=== PATIENT | female | born 1985 | race Caucasian/White ===

== ENCOUNTER 2021-05-17 08:19 | Outpatient (REF) | payer OTHER, MEDICAID, SELFPAY ==
--- NOTE | 2021-05-17 11:39 | MHC.AU.ANO ---
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 She does not know the type of tumor which was removed. When in [place], Nate saw an footwear machinery instructor on a regular basis for ear cleaning due to constant drainage/moisture in the right ear. She has been in the [place] for approximately 4 years now and usually has gone to a walk in clinic for ear cleaning. Nate notes she saw an [employer] Hand and Mediation Commissioner 6 months ago at [facility]. A report is not available for review. Nate reports ear cleaning was performed, but no medical treatment was provided. A hearing aid for the right ear was recommended. Nate did not want to travel to [place] and would like to keep her care more local. Hearing Handicap Inventory: HHIE SCORE: 24 Based on HHIE score, patient has: Mild to moderate perceived hearing handicap Ear History: Recent Ear Drainage: Right Ear Recent Ear Pain: Right Ear Recent Ear Infections: Right Ear Ear Infections in Childhood: Right Ear Previous Ear Surgery: Right Ear Bothersome Tinnitus/Ringing/Noises in Ears: Right Ear Ear used on the phone: Left Ear Blocked/Full Sensation in Ear(s): Right Ear History of occupational noise exposure?: No History: History: No Medical History: Medical History: Migraines Medical History: EXPERIENCES DIZZINESS AND HEADACHES WITH LOUD SOUNDS Medication List: vitamin and Ibuprofen (as needed) Otoscopy: Right Ear: Significant moisture in canal with scarring noted on TM and canal Left Ear: Unremarkable Tympanometry: Tympanometry performed due to: History of ear surgery Right Ear: Normal Middle Ear System (Type A) with large ear canal volume reading Left Ear: Normal Middle Ear System (Type A) Otoacoustic EmissionsNot performed at today's visit. Hearing Evaluation: Transducer(s) Used: Insert Earphones Bone Conduction Method: Conventional Audiometry Stimuli Used: Pure Tones Right Ear: Description of Hearing: Moderate dropping to profound mixed hearing loss Left Ear: Description of Hearing: Normal hearing thresholds 250-4000 Hz, dropping to a moderate high frequency hearing loss Speech Recognition Threshold (SRT): Method Used: Monitored Live Voice Stimuli Used: Spondee Words Right Ear: 55 dB HL Left Ear: 15 dB HL Word Discrimination: Method: Monitored Live Voice Word Lists Used: NU-6 Right Ear: 96% at 85 dB HL Left Ear: 100% at 55 dB HL Comparison: Compared to most recent evaluation: Previous test results not available for review Recommendations: - Referral to Ear, Nose, and Throat is recommended to determine treatment for the constant ear moisture/drainage and if further medical treatment may improve the conductive part of the right ear hearing loss. - Use of a hearing aid for the right ear was discussed. However, Edeusa reports significant ear discomfort related to the discharge, ear pain, and tinnitus. There is concern about use of a hearing aid causing more problems with discomfort and/or infection. - Amplification for the right ear is recommended if the loss cannot be medically treated and above noted ear symptoms resolve. - Audiological re-evaluation in 6 months to monitor. Will send a reminder card. Diagnosis: Primary Diagnosis: H90.8 Mixed Hearing Loss, Unspecified Services Performed: Comprehensive Audiological Evaluation (CPT 24643) Tympanometry (CPT 67754) Signature: Provider: Aide Kurtz, CCC-A
== END 2021-05-17 08:20 | disposition home or self-care (01) ==
LOC: HO.SH 08:19
PROVIDERS: PCP Nurse Practitioner; Visit Provider Nurse Practitioner
DX: H90.8 Mixed conductive and sensorineural hearing loss, unspecified (principal)
CPT/HCPCS: 92557; 92567

== ENCOUNTER 2022-12-25 11:33 | Outpatient (REF) | payer OTHER, SELFPAY ==
[2022-12-26 13:27] LABS: BV Int Neg Control Negative (Negative); BV Int Pos Control Positive (Positive)
== END 2022-12-25 11:34 | disposition home or self-care (01) ==
LOC: HO.HHCLNP 11:33
PROVIDERS: Visit Provider Family Medicine
DX: N89.8 Other specified noninflammatory disorders of vagina (principal)
CPT/HCPCS: 87480; 87510; 87660

== ENCOUNTER 2023-01-14 11:45 | Outpatient (REF) | payer OTHER, SELFPAY ==
[2023-01-14 13:26] LABS: CT PCR NOT DETECTED (Not Detect.); NG PCR NOT DETECTED (Not Detect.)
[2023-01-15 15:17] LABS: BV Int Neg Control Negative (Negative); BV Int Pos Control Positive (Positive)
== END 2023-01-14 11:46 | disposition home or self-care (01) ==
LOC: HO.HHCLNP 11:45
PROVIDERS: Visit Provider Internal Medicine
DX: N89.8 Other specified noninflammatory disorders of vagina (principal)
CPT/HCPCS: 0353U; 87480; 87510; 87660

== ENCOUNTER 2023-04-16 14:08 | Outpatient (REF) | payer OTHER, SELFPAY ==
[2023-04-17 15:33] LABS: RPR Rapid Plasma Reagin REACTIVE (NON-REACTIVE)
== END 2023-04-16 14:09 | disposition home or self-care (01) ==
LOC: HO.HHCL 14:08
PROVIDERS: Visit Provider Nurse Practitioner Primary Care
DX: Z11.3 Encounter for screening for infections with a predominantly sexual mode of transmission (principal)
CPT/HCPCS: 36415; 86592; 86593

== ENCOUNTER 2024-05-11 11:03 | Outpatient (REF) | payer OTHER, SELFPAY ==
[2024-05-11 13:20] LABS: Hematocrit 35.5 % (37.0-47.0); Hemoglobin 11.4 g/dl (12.0-16.0); Mean Corpuscular HGB Conc 32.1 g/dl (31.0-35.0); Mean Corpuscular Hemoglobin 25.7 pg (27.0-33.0); Mean Platelet Volume 10.6 fL (9.4-12.3); Platelet Count 266 X10*3/uL (160-400); Red Blood Count 4.44 X10*6/uL (4.20-5.50); Red Cell Distribution Width 14.9 % (11.0-16.0); White Blood Count 4.5 X10*3/uL (4.8-10.8)
[2024-05-11 13:37] LABS: Estimated Average Glucose 100 mg/dL; Hemoglobin A1C 94.5923 umol/L; Hemoglobin A1c % 5.1 % (<6.0); Total Hemoglobin (HGBA1C) 2906.9788 umol/L
[2024-05-11 13:39] LABS: Alanine Aminotransferase 23 U/L (0-31); Albumin Level 3.9 g/dL (3.5-5.0); Alkaline Phosphatase 25 U/L (39-117); Anion Gap 9 (12-20); Aspartate Amino Transferase 25 U/L (5-31); Bilirubin Total 0.6 mg/dL (0.0-1.0); Blood Urea Nitrogen 12 mg/dL (9-16); Calcium 8.5 mg/dL (8.4-10.2); Carbon Dioxide 25 mmol/L (22-29); Chloride 110 mmol/L (96-108); Cholesterol 148 mg/dL (<200); Estimated Glomerular Filt Rate > 60; Glucose Random 91 mg/dL (60-115); HDL Cholesterol 49 mg/dL (>40); LDL Cholesterol Calculated 89 mg/dL (<100); Potassium 4.1 mmol/L (3.3-5.1); Sodium 140 mmol/L (135-145); Total Protein 6.7 g/dL (6.5-8.0); Triglycerides 53 mg/dL (<150)
[2024-05-11 13:58] LABS: Free T4 (Free Thyroxine) 0.98 ng/dL (0.71-1.85); Thyroid Stimulating Hormone 1.38 uIU/mL (0.32-4.0); Vitamin D 25-OH Total 36.4 ng/mL (>30)
[2024-05-11 14:59] LABS: CT PCR NOT DETECTED (Not Detect.); NG PCR NOT DETECTED (Not Detect.)
[2024-05-11 15:09] LABS: Iron 85 mcg/dL (30-160); Percent Iron Saturation 28 % (15-50); Total Iron Binding Capacity 307 mcg/dL (228-428); Unsaturated Iron Binding 222 ug/dL
[2024-05-11 15:23] LABS: Ferritin 20 ng/mL (10-250)
[2024-05-12 04:43] LABS: HBS Num1 111.38 mIU/mL (0-7.99); HBc Num1 0.27 S/CO (0.00-0.79); HBsAGNum1 0.32 S/CO (0.00-0.99); HIV AB/AG Nonreactive (Nonreactive); HIV Num 1 0.04 S/CO (0.00-0.99); Hepatitis B Core Antibody Nonreactive (Nonreactive); Hepatitis B Surface Antigen Negative (Negative); ~HepC Num1 0.22 S/CO (0.00-0.79); ~Hepatitis B Surface Antibody REACTIVE (Nonreactive); ~Hepatitis C Antibody Nonreactive (Nonreactive)
[2024-05-12 05:07] LABS: Syphilis Screen Reactive (Nonreactive)
--- OUTSIDE RECORDS SUMMARY | 2024-05-17 17:59 | XMS_ITS | Continuity of Care Document ---
Author Organization [place] [facility], Allergy Address [address] [place] [phone] Care Team Providers Care Director Of Physical Education Name Role Phone ADILENE ACHARYA Primary Care Provider Assessment Encounter Date Assessment Date Assessment LastModified by Organization Details LastModified Time 04/22/2024 04/22/2024 Administered By: Marga Harrison RN Use of Antihistamines: No If yes: Vial Test Change in medications: No If yes ?? Increase in asthma symptoms No Asthma Hx If yes, inhaler use: Reaction to last injections: No If yes: ?? Allergy Symptoms: Other: ?? Missed 1 week Dose Decreased Notes:??missed 2 weeks hlorinser Not available 04/22/2024 15:06:09 Plan of Treatment Reminders Order Date Submit Date Provider Last Modified By Organization Details Last Modified Time Details Appointments [facility]- Allergy f-up 6mon 2023 01:50P M SARIAH NATION MD Not available Not available Not available Lab None recorded . Referral None recorded . Procedures None recorded . Surgeries None recorded . Imaging None recorded . Medication Orders None recorded . Patient TargetsNo targets recorded. Patient InstructionsNo instructions recorded. Reason for Referral None Reported. 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 Other disorder s followin g mastoide ctomy, right ear; Note: Date Diagnose d: 2 4:39 PM (H95.191 ) Not Available [facility] 4 03:07:21 Tinnitus of right ear [id number] 08 Active 2022 Tinnitus , right ear; Note: Date Diagnose d: 11/13/2022 3:13 PM (H93.11) Not Available [facility] 4 03:07:22 Sensorin eural hearing loss in left ear 18174643900 109 Active 2021 Sensorin eural hearing loss, unilater al, left ear, with restrict ed hearing on the contrala teral side; Note: Date Diagnose d: 2 4:39 PM (H90.A22 ) Not Available [facility] 4 03:07:20 Otorrhea of right ear [id number] 29904 Completed 202101/08/2024 Otorrhea , right ear; Note: Date Diagnose d: 9:57 AM (H92.11) Otorrh ea, right ear; Note: Date Diagnose d: 06/10/2019 2:45 PM (H92.11) ; Start Date : 06/10/19 Not Available [facility] 4 03:07:20 Allergic rhinitis caused by pollen 71580912 Active 2022 Allergic rhinitis due to pollen; Note: Date Diagnose d: 11/13/2022 3:13 PM (J30.1) Not Available [facility] 4 03:07:22 Partial loss of ear ossicles 36196207 Active 2021 Partial loss of ear ossicles , right ear; Note: Date Diagnose d: 2 9:54 AM (H74.321 ) Not Available [facility] 4 03:07:21 Follow-u p visit Active 2021 Medical surveill ance followin g complete d treatmen t; Note: Date Diagnose d: 04/25/20 22 3:46 PM (Z09) Not Available [facility] 4 03:07:22 Acute pharyngi tis 693240194 Completed 202201/04/2024 Acute pharyngi tis, unspecif ied; Note: Date Diagnose d: 03/19/20 23 9:39 AM (J02.9) Note: Date Diagnose d: 03/19/20 9:39 AM (J02.9) SARIAH NATION MD [address] [facility],[place] [address], [place], [phone] , [place] [facility] 4 16:30:12 Chronic inflamma tion of mastoid cavity 362457424 Completed 201901/08/2024 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, right ear; Note: Date Diagnose d: 06/10/2019 2:45 PM (H95.111 ) Not Available [facility] 4 03:07:21 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; Note: Date Diagnose d: 06/10/2019 2:42 PM (383.33) Not Available [facility] 4 03:07:22 Perennia l allergic rhinitis 523627022 Active 2023 MARGA HARRISON RN [address] [facility],[place] [address], [place], [phone] , [place] [facility] 4 15:03:21 Mixed conducti ve and sensorin eural hearing loss of right ear 41969571039 105 Active 2023 SARIAH NATION MD [address] [place] [address], [place], [address] , [place] [facility] 4 16:31:16 Otorrhea of right ear 12430428130 05777 Active 2023 Otorrhea , right ear; Note: Date Diagnose d: 2 9:57 AM (H92.11) Note: Date Diagnose d: 2 9:57 AM (H92.11) Otorrh ea, right ear; Note: Date Diagnose d: 06/10/2019 2:45 PM (H92.11) Note: Date Diagnose d: 06/10/2019 2:45 PM (H92.11) ; Start Date : 06/10/19 SARIAH NATION MD [address] [facility],[place] [address], [place], [address] , [place] [facility] 4 11:27:08 Mixed conducti ve and sensorin eural hearing loss of left ear 95028493406 107 Active 2021 Mixed conducti ve and sensorin eural hearing loss, unilater al, left ear with restrict ed hearing on the contrala teral side; Note: Date Diagnose d: 2 4:39 PM (H90.A32 ) Not Available [facility] 4 03:07:21 Problem Notes None recorded. Procedures Surgical History Date Name Laterality Status Provider Name and Address Organization Details Recorded Time 05/13/20 24 Allergy Immunotherapy Injections completed ADRIEL SHEPARD, RMA [address] [facility] [address],[place] [address] [place] [address], [phone], [place] [facility] 05/13/2024 15:19:24 04/22/20 24 Allergy Immunotherapy Injections completed MARGA HARRISON RN [address] [facility],[place] [address] [place] [address], [phone], [place] [facility] 04/22/2024 15:06:00 03/31/20 24 Allergy Immunotherapy Injections completed QUINN MAE [facility] [address] [facility] [address],[place] [address] [place] [address], [phone], [place] [facility] 03/31/2024 15:25:04 03/10/20 24 Allergy Immunotherapy Injections completed ADRIEL SHEPARD, RMA [address],[place] [address] [place] [address], [phone], [place] [facility] 03/10/2024 14:25:36 03/03/20 24 Allergy Immunotherapy Injections completed ADRIEL SHEPARD A [address] [facility] [address],[place] [address] [place] [address], [phone], [place] [facility] 03/03/2024 14:21:21 02/26/20 24 Allergy Immunotherapy Injections completed MARGA HARRISON RN [address] [facility] [address] [place] [address] [place] [address], [phone], [place] [facility] 02/26/2024 10:12:39 02/18/20 24 Allergy Immunotherapy Injections completed MARGA HARRISON RN [address] [facility] [place] [address] [place] [address], [phone], [place] [facility] 02/18/2024 16:04:15 02/11/20 24 Allergy Immunotherapy Injections completed QUINN MAE [facility] [address] [facility] [place] [address] [place] [address], [phone], [place] [facility] 02/11/2024 13:55:12 02/04/20 24 Allergy Immunotherapy Injections completed QUINN MAE [facility] [address] [facility] [address],[place] [address] [place] [address], [phone], [place] [facility] 02/04/2024 13:18:37 01/21/20 24 Allergy Immunotherapy Injections completed QUINN MAE [facility] [address] [facility] [address],[place] [address] [place] [address], [phone], [place] [facility] 01/21/2024 13:29:56 01/05/20 24 Debridement of Mastoid Cavity right completed SARIAH NATION MD [address] [facility] [place],[address], [phone], [place] [facility] 01/05/2024 11:26:57 01/05/20 24 Allergy Immunotherapy Injections completed MARGA HARRISON RN [address] [facility] [place],[address], [phone], [place] [facility] 01/05/2024 12:01:09 12/17/19 24 Allergy Immunotherapy Injections completed ADRIEL SHEPARD [facility] [address] [facility] [address],[place] [address] [place] [address], [phone], [place] [facility] 12/17/2023 11:19:30 11/30/19 24 Allergy Immunotherapy Injections completed MARGA HARRISON RN [address] [facility],[place] [address] [place] [address], [phone], [place] [facility] 11/30/2023 15:43:46 Appendectomy completed Mony Dailey [facility] 01/05/2024 10:43:00 Breast reduction completed Mony Dailey [place] [facility] 01/05/2024 10:43:07 Imaging Results None recorded. Procedure Notes None recorded. Medical Equipment None Reported. Allergies No known drug allergies Medications Name Sig Start Date Stop Date Status Note LastModified by Organization Details LastModified Time amoxicill in 500 mg capsule TAKE 1 CAPSULE (500 MG) BY MOUTH EVERY 8 HOURS FOR 7 DAYS 01/04 completed Not Available Not Available Not Available ibuprofen 800 mg tablet 07/15 completed Medicati on ID: [id number] D uration Value: 10 Brand Name: ibuprofe n Send Method: E-Prescr ibed Sub s Allowed: subs OK Speci al Instruct ion: TAKE 1 TABLET THREE TIMES DAILY WITH FOOD Med icationG enericNa me: ibuprofe n Not Available Not Available Not Available fluconazo le 150 mg tablet TAKE 1 TABLET BY MOUTH ONCE PER WEEK FOR 3 WEEKS 01/04 completed Not Available Not Available Not Available Ciloxan 0.3 % eye drops 01/04 completed Medicati on ID: [id number] D uration Value: 14 Brand Name: Ciloxan Send Method: E-Prescr ibed Sub s Allowed: subs OK Speci al Instruct ion: 4 drops into right ear BID X 14 days Med icationG enericNa me: Ciloxan Medicati on ID: [id number] D uration Value: 14 Brand Name: Ciloxan Send Method: E-Prescr ibed Sub s Allowed: subs OK Speci al Instruct ion: 4 drops into right ear BID X 14 days Med icationG enericNa me: Ciloxan Not Available Not Available Not Available acetamino phen 500 mg tablet TAKE 1 TABLET BY MOUTH EVERY 8 HOURS NEEDED FOR PAIN 01/04 completed Not Available Not Available Not Available levothyro xine 25 mcg tablet TAKE ONE TABLET EVERY AM ON EMPTY STOMACH 01/04 completed Not Available Not Available Not Available levothyro xine 50 mcg tablet TAKE 1 TABLET BY MOUTH DAILY IN THE MORNING ON EMPTY STOMACH active Not Available Not Available No t Available epinephri ne 0.3 mg/0.3 mL injection , auto-inje ctor INJECT 1 PEN INJECTOR A SINGLE DOSE NEEDED active Not Available Not Available No t Available Clomid 50 mg tablet TAKE TWO TABLETS BY MOUTH FROM CYCLE DAYS 5-9 OF MENSTRUA L CYCLE 01/04 completed Not Available Not Available Not Available amoxicill in 875 mg-potass ium clavulana te 125 mg tablet 12/17 completed Medicati on ID: [id number] D uration Value: 10 Brand Name: amoxicil ann marie-pot clavulan ate Send Method: E-Prescr ibed Sub s Allowed: subs OK Speci al Instruct ion: TAKE 1 TABLET EVERY TWELVE HOURS UNTIL FINISHED Medicat ionGener icName: amoxicil ann marie-pot clavulan ate Not Available Not Available Not Available oxycodone 5 mg tablet Take 1 tablet by mouth every six hours as needed for pain 01/04 completed Medicati on ID: [id number] D uration Value: 5 Prescri bed By Name: Erin Baeza nd Name: oxycodon e Send Method: E-Prescr ibed Sub s Allowed: subs OK Medic ationGen ericName : oxycodon e Medica tion ID: [id number] D uration Value: 5 Prescri bed By Name: Erin Baeza nd Name: oxycodon e Send Method: E-Prescr ibed Sub s Allowed: subs OK Medic ationGen ericName : oxycodon e Not Available Not Available Not Available 3-Day Vaginal 2 % cream INSERT 1 APPLICAT ORFUL VAGINALL Y EVERY NIGHT FOR 3 NIGHTS 01/04 completed Not Available Not Available Not Available ciproflox acin 0.3 %-dexamet hasone 0.1 % ear drops,[employer] pension Instill 4 drops twice a day by otic route for 7 days. active Not Available Not Available No t Available 28 mg iron-800 mcg tablet TAKE 1 TABLET BY MOUTH EVERY MORNING 01/04 completed Not Available Not Available Not Available Vitals None Recorded Social History None recorded. Functional Status None recorded. Mental Status None recorded. Family History Nothing Reported. Medical History Condition Response Allergies/Hayfever Y Migraines Y Anxiety Y Thyroid Problems Y GERD/Reflux Y Gynecological HistoryNo gynecological history recorded. Obstetrics History GPAL:G 0 P 0 0 0 0 Past Encounters Encounter ID Performer Location Encounter Start Date Encounter Closed Date Diagnosis/Indication Diagnosis SNOMED-CT Code Diagnosis ICD10 Code [id number] MONSERRAT RATLIFF Allergy [address] [facility] [address] [facility] AMALIA OROZCO [phone] 03/31/2024 15:21:42 03/31/2024 15:25:34 Perennial allergic rhinitis 628916098 30.89 [id number] MARGA HARRISON RN Allergy [address] [place] [address] [address] [facility] [address] 04/22/2024 14:47:50 04/22/2024 15:06:28 Perennial allergic rhinitis 153435697 J30.89 Health Concerns Section Related Observation LastModified by Organization Detai ls LastModified Time None Recorded Concern Status LastModified by Organization Details LastModified Time None Recorded Payers Encounter Date Sequence Insurance Name Policy Number Policy Felix Covered Member ID Felix Member ID Guarantor Name 04/22/2024 1 [facility] [place] [id number] Edeusa Jarod [id number] Edeusa Jarod OBGyn Episode No OBEpisode recorded.
--- OUTSIDE RECORDS SUMMARY | 2024-05-17 17:59 | XMS_ITS | Continuity of Care Document ---
Author Organization [place] - [facility], Allergy Address [address] [place] [phone] Care Team Providers Care Business Office Coordinator Name Role Phone ADILENE ACHARYA Primary Care Provider Assessment Encounter Date Assessment Date Assessment LastModified by Organization Details LastModified Time 05/13/2024 05/13/2024 Administered By: MONSERRAT Ram Use of Antihistamines: No If yes: Vial Test Change in medications: No If yes ?? Increase in asthma symptoms If yes, inhaler use: Reaction to last injections: No If yes: ?? Allergy Symptoms: Other: ?? Missed 1 week Dose Notes:?? [email or web address] Not available 05/13/2024 15:19:28 Plan of Treatment Reminders Order Date Submit Date Provider Last Modified By Organization Details Last Modified Time Details Appointments [facility]- Allergy f-up 6mon 2023 01:50P M SARIAH [...] Recorded Time Postmast oidectom y complica tion 32328770 Active 2021 Other disorder s followin g mastoide ctomy, right ear; Note: Date Diagnose d: 2 4:39 PM (H95.191 ) Not Available [facility] 4 03:07:21 Tinnitus of right ear [id number] 08 Active 2022 Tinnitus , right ear; Note: Date Diagnose d: 11/13/2022 3:13 PM (H93.11) Not Available [facility] 4 03:07:22 Sensorin eural hearing loss in left ear 65640506121 109 Active 2021 Sensorin eural hearing loss, unilater al, left ear, with restrict ed hearing on the contrala teral side; Note: Date Diagnose d: 2 4:39 PM (H90.A22 ) Not Available [facility] 4 03:07:20 Otorrhea of right ear [id number] 43412 Completed 202101/08/2024 Otorrhea , right ear; Note: Date Diagnose d: 2 9:57 AM (H92.11) Otorrh ea, right ear; Note: Date Diagnose d: 06/10/2019 2:45 PM (H92.11) ; Start Date : 06/10/19 Not Available [facility] 4 03:07:20 Allergic rhinitis caused by pollen 88257779 Active 2022 Allergic rhinitis due to pollen; Note: Date Diagnose d: 11/13/2022 3:13 PM (J30.1) Not Available [facility] 4 03:07:22 Partial loss of ear ossicles 31728655 Active 2021 Partial loss of ear ossicles , right ear; Note: Date Diagnose d: 2 9:54 AM (H74.321 ) Not Available [facility] 4 03:07:21 Follow-u p visit Active 2021 Medical surveill ance followin g complete d treatmen t; Note: Date Diagnose d: 04/25/20 22 3:46 PM (Z09) Not Available [facility] 4 03:07:22 Acute pharyngi tis 167007326 Completed 202201/04/2024 Acute pharyngi tis, unspecif ied; Note: Date Diagnose d: 03/19/20 23 9:39 AM (J02.9) Note: Date Diagnose d: 03/19/20 9:39 AM (J02.9) SARIAH NATION MD [address] [place] [address], [place], [phone] , [place] [facility] 4 16:30:12 Chronic inflamma tion of mastoid cavity 647966474 Completed 201901/08/2024 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, right ear; Note: Date Diagnose d: 06/10/2019 2:45 PM (H95.111 ) Not Available [facility] 4 03:07:21 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; Note: Date Diagnose d: 06/10/2019 2:42 PM (383.33) Not Available [facility] 4 03:07:22 Perennia l allergic rhinitis 367520642 Active 2023 MARGA HARRISON RN [address] [address], [place], [phone] , [place] [facility] 4 15:03:21 Mixed conducti ve and sensorin eural hearing loss of right ear 16097512675 105 Active 2023 SARIAH NATION MD [address] [place] [address], [place], [address] , [place] [facility] [place] 4 16:31:16 Otorrhea of right ear 34208958562 61417 Active 2023 Otorrhea , right ear; Note: Date Diagnose d: 2 9:57 AM (H92.11) Note: Date Diagnose d: 2 9:57 AM (H92.11) Otorrh ea, right ear; Note: Date Diagnose d: 06/10/2019 2:45 PM (H92.11) Note: Date Diagnose d: 06/10/2019 2:45 PM (H92.11) ; Start Date : 06/10/19 SARIAH NATION MD [address] [place] [address],[place] [address], [place], [phone] , [place] [facility] 4 11:27:08 Mixed conducti ve and sensorin eural hearing loss of left ear [id number] 107 Active 2021 Mixed conducti ve and sensorin eural hearing loss, unilater al, left ear with restrict ed hearing on the contrala teral side; Note: Date Diagnose d: 2 4:39 PM (H90.A32 ) Not Available [facility] 4 03:07:21 Problem Notes None recorded. Procedures Surgical History Date Name Laterality Status Provider Name and Address Organization Details Recorded Time 05/13/20 24 Allergy Immunotherapy Injections completed ADREIL SHEPARD, RMA [address] [facility] [address] [place] [address], [phone], [place] [facility] 05/13/2024 15:19:24 04/22/20 24 Allergy Immunotherapy Injections completed MARGA HARRISON RN 100 [facility],[address] [place] [address], [phone], [place] [facility] 04/22/2024 15:06:00 03/31/20 24 Allergy Immunotherapy Injections completed QUINN MAE [facility] [address] [facility] [address] [place] [address], [phone], [facility] - [facility] 03/31/2024 15:25:04 03/10/20 24 Allergy Immunotherapy Injections completed ADRIEL SHEPARD A [address] [facility] [address] [place] [address], [phone], [facility] - [facility] 03/10/2024 14:25:36 03/03/20 24 Allergy Immunotherapy Injections completed ADRIEL SHEPARD A [address] [facility] [place],[address] [place] [address], [phone], [facility] - [facility] [place] 03/03/2024 14:21:21 02/26/20 24 Allergy Immunotherapy Injections completed MARGA HARRISON RN 100 [facility],[address] [place] [address], [phone], [facility] - [facility] [place] 02/26/2024 10:12:39 02/18/20 24 Allergy Immunotherapy Injections completed MARGA HARRISON RN 100 [facility],[address] [place] [address], [phone], [place] [facility] [place] 02/18/2024 16:04:15 02/11/20 24 Allergy Immunotherapy Injections completed QUINN MAE, [facility] [address] [facility] [address] [place] [address], [phone], [place] [facility] [place] 02/11/2024 13:55:12 02/04/20 24 Allergy Immunotherapy Injections completed QUINN MAE A [address] [facility] [address] [place] [address], [phone], [place] [facility] [place] 02/04/2024 13:18:37 01/21/20 24 Allergy Immunotherapy Injections completed QUINN MAE, [facility] [address] [facility] [address], [place], [address], [place] [facility] [place] 01/21/2024 13:29:56 01/05/20 24 Debridement of Mastoid Cavity right completed SARIAH NATION MD [address] [facility] [address] [place] [address], [phone], [place] [facility] [place] 01/05/2024 11:26:57 01/05/20 24 Allergy Immunotherapy Injections completed MARGA HARRISON RN [facility] [place],[address], [phone], [place] [facility] [place] 01/05/2024 12:01:09 12/17/19 24 Allergy Immunotherapy Injections completed ADRIEL SHEPARD, [facility] [address] [facility] [address] [place] [address], [phone], [place] [facility] 12/17/2023 11:19:30 11/30/19 24 Allergy Immunotherapy Injections completed MARGA HARRISON RN [address] [facility] [place],[address] [place] [address], [phone], [place] [facility] [place] 11/30/2023 15:43:46 Appendectomy completed Mony Dailey [place] - [facility] [place] 01/05/2024 10:43:00 Breast reduction completed Mony Dailey [place] [facility] [place] 01/05/2024 10:43:07 Imaging Results None recorded. Procedure [...] mg tablet 07/15 completed Medicati on ID: [id number] D uration Value: 10 Brand Name: ibuprofe [...] eye drops 01/04 completed Medicati on ID: [id number] D uration Value: 14 Brand Name: Ciloxan Send Method: E-Prescr ibed Sub s Allowed: subs [place] Speci al Instruct ion: 4 drops into right ear BID X 14 days Med icationG enericNa me: Ciloxan Medicati on ID: [id number] D uration Value: 14 Brand Name: Ciloxan [...] mg tablet 12/17 completed Medicati on ID: [id number] D uration Value: 10 Brand Name: amoxicil [...] for pain 01/04 completed Medicati on ID: [id number] D uration Value: 5 Prescri bed By Name: Erin Baeza nd Name: oxycodon e Send Method: E-Prescr ibed Sub s Allowed: subs OK Medic ationGen ericName : oxycodon e Medica tion ID: [id number] D uration Value: 5 Prescri bed By [...] Diagnosis/Indication Diagnosis SNOMED-CT Code Diagnosis ICD10 Code [id number] MARGA HARRISON RN Allergy [address] [place] [address] AMALIA OROZCO [phone] 04/22/2024 14:47:50 04/22/2024 15:06:28 Perennial allergic rhinitis 212811562 J30.[id number] [facility] IRMAC, RMA Allergy 100 [facility], it 100 [place] [address] 05/13/2024 14:51:58 05/13/2024 15:19:45 Perennial allergic rhinitis 229958099 J30.89 Health Concerns Section Related Observation LastModified by Organization Detai ls LastModified Time None Recorded Concern Status LastModified by Organization Details LastModified Time None Recorded Payers Encounter Date Sequence Insurance Name Policy Number Policy Felix Covered Member ID Felix Member ID Guarantor Name 05/13/2024 1 [facility] [employer] [facility] [place] (HMO) [id number] Edeusa Jarod [id number] 1 Edeusa Jarod OBGyn Episode No OBEpisode recorded.
--- OUTSIDE RECORDS SUMMARY | 2024-05-17 17:59 | XMS_ITS | Continuity of Care Document ---
Author Organization [place] - [facility], Allergy Address [address] [place] [phone] Care Team Providers Care Framing Manager Name Role Phone ADILENE ACHARYA Primary Care Provider [phone] Assessment Encounter Date Assessment Date Assessment LastModified by Organization Details LastModified Time 03/31/2024 03/31/2024 Administered By: Marga Harrison RN Use of Antihistamines: No If yes: Vial Test Yes Change in medications: No If yes ?? Increase in asthma symptoms No Asthma Hx If yes, inhaler use: Reaction to last injections: No If yes: ?? Allergy Symptoms: Other: ?? Missed 1 week Yes Dose Notes:??missed two weeks Not available 03/31/2024 15:24:37 Plan of Treatment Reminders Order Date Submit Date Provider Last Modified By Organization Details Last Modified Time Details Appointments [facility]- Allergy f-up 6mon 2023 01:50P M SARIAH [...] Recorded Time Postmast oidectom y complica tion 98312869 Active 2021 Other disorder s followin g mastoide ctomy, right ear; Note: Date Diagnose d: 2 4:39 PM (H95.191 ) Not Available [facility] 4 03:07:21 Tinnitus of right ear 93609410366 08 Active 2022 Tinnitus , right ear; Note: Date Diagnose d: 11/13/2022 3:13 PM (H93.11) Not Available [facility] 4 03:07:22 Sensorin eural hearing loss in left ear 62824827873 109 Active 2021 Sensorin eural hearing loss, unilater al, left ear, with restrict ed hearing on the contrala teral side; Note: Date Diagnose d: 2 4:39 PM (H90.A22 ) Not Available [facility] 4 03:07:20 Otorrhea of right ear 36522481084 74014 Completed 202101/08/2024 Otorrhea , right ear; Note: Date Diagnose d: 2 9:57 AM (H92.11) Otorrh ea, right ear; Note: Date Diagnose d: 06/10/2019 2:45 PM (H92.11) ; Start Date : 06/10/19 Not Available [facility] 4 03:07:20 Allergic rhinitis caused by pollen 29563130 Active 2022 Allergic rhinitis due to pollen; Note: Date Diagnose d: 11/13/2022 3:13 PM (J30.1) Not Available [facility] 4 03:07:22 Partial loss of ear ossicles 55016469 Active 2021 Partial loss of ear ossicles , right ear; Note: Date Diagnose d: 2 9:54 AM (H74.321 ) Not Available [facility] 4 03:07:21 Follow-u p visit Active 2021 Medical surveill ance followin g complete d treatmen t; Note: Date Diagnose d: 04/25/20 22 3:46 PM (Z09) Not Available [facility] 4 03:07:22 Acute pharyngi tis 384837817 Completed 202201/04/2024 Acute pharyngi tis, unspecif ied; Note: Date Diagnose d: 03/19/20 9:39 AM (J02.9) Note: Date Diagnose d: 03/19/20 9:39 AM (J02.9) SARIAH NATION MD 100 [facility],[place] [address], [place], [address] , [place] [facility] [place] 4 16:30:12 Chronic inflamma tion of mastoid cavity 812819342 Completed 201901/08/2024 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, right ear; Note: Date Diagnose d: 06/10/2019 2:45 PM (H95.111 ) Not Available [facility] 4 03:07:21 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; Note: Date Diagnose d: 06/10/2019 2:42 PM (383.33) Not Available [facility] 4 03:07:22 Perennia l allergic rhinitis 330492526 Active 2023 MARGA HARRISON RN [address] [place] [address], [place], [address] , [place] [facility] [place] 4 15:03:21 Mixed conducti ve and sensorin eural hearing loss of right ear 65295074425 105 Active 2023 SARIAH NATION MD [address] [place] [address], [place], [address] , [place] [facility] [place] 4 16:31:16 Otorrhea of right ear 91187822302 37467 Active 2023 Otorrhea , right ear; Note: Date Diagnose d: 2 9:57 AM (H92.11) Note: Date Diagnose d: 2 9:57 AM (H92.11) Otorrh ea, right ear; Note: Date Diagnose d: 06/10/2019 2:45 PM (H92.11) Note: Date Diagnose d: 06/10/2019 2:45 PM (H92.11) ; Start Date : 06/10/19 SARIAH NATION MD 100 [facility],[place] [address], [place], [phone] , [place] [facility] [place] 4 11:27:08 Mixed conducti ve and sensorin eural hearing loss of left ear 90125416841 107 Active 2021 Mixed conducti ve and sensorin eural hearing loss, unilater al, left ear with restrict ed hearing on the contrala teral side; Note: Date Diagnose d: 2 4:39 PM (H90.A32 ) Not Available [facility] 4 03:07:21 Problem Notes None recorded. Procedures Surgical History Date Name Laterality Status Provider Name and Address Organization Details Recorded Time 05/13/20 24 Allergy Immunotherapy Injections completed ADRIEL SHEPARD, RMA [address] [facility] [place] [address], [phone], [place] [facility] 05/13/2024 15:19:24 04/22/20 24 Allergy Immunotherapy Injections completed MARGA HARRISON RN 100 [facility],[address], [address], [place] [facility] 04/22/2024 15:06:00 03/31/20 24 Allergy Immunotherapy Injections completed QUINN MAE Bennett [address] [facility] [place] [address], [address], [place] [facility] [place] 03/31/2024 15:25:04 03/10/20 24 Allergy Immunotherapy Injections completed ADRIEL SHEPARD RMA [address] [facility] [address] [place] [address], [address], [place] [facility] 03/10/2024 14:25:36 03/03/20 24 Allergy Immunotherapy Injections completed ADRIEL SHEPARD A [address] [facility] [address] [place] [address], [phone], [place] [facility] [place] 03/03/2024 14:21:21 02/26/20 24 Allergy Immunotherapy Injections completed MARGA HARRISON RN 100 [facility],[address] [place] [address], [address], [place] [facility] [place] 02/26/2024 10:12:39 02/18/20 24 Allergy Immunotherapy Injections completed MARGA HARRISON RN [address] [facility] [place],[address] [place] [address], [address], [place] [facility] [place] 02/18/2024 16:04:15 02/11/20 24 Allergy Immunotherapy Injections completed QUINN MAE [facility] [address] [facility] [address] [place] [address], [address], [place] [facility] [place] 02/11/2024 13:55:12 02/04/20 24 Allergy Immunotherapy Injections completed QUINN MAE [facility] [address] [facility] [place],[address] [place] [address], [address], [place] [facility] [place] 02/04/2024 13:18:37 01/21/20 24 Allergy Immunotherapy Injections completed QUINN MAE [facility] [place] [facility] [place], [address], [place] [facility] [place] 01/21/2024 13:29:56 01/05/20 24 Debridement of Mastoid Cavity right completed SARIAH NATION MD 100 [facility],[address], [address], [place] [facility] 01/05/2024 11:26:57 01/05/20 24 Allergy Immunotherapy Injections completed MARGA HARRISON RN [address], [address], [place] [facility] 01/05/2024 12:01:09 12/17/19 24 Allergy Immunotherapy Injections completed MONSERRAT VELAZQUEZ [address] [facility] [place] [address], [address], [place] [facility] 12/17/2023 11:19:30 11/30/19 24 Allergy Immunotherapy Injections completed MARGA HARRISON RN 100 [facility],[address] [place] [address], [address], [place] [facility] [place] 11/30/2023 15:43:46 Appendectomy completed Mony Dailey [place] [facility] 01/05/2024 10:43:00 Breast reduction completed Mony Dailey [place] [facility] 01/05/2024 10:43:07 Imaging Results None recorded. Procedure [...] mg tablet 07/15 completed Medicati on ID: [id number] D uration Value: 10 Brand Name: ibuprofe [...] eye drops 01/04 completed Medicati on ID: [id number] D uration Value: 14 Brand Name: Ciloxan Send Method: E-Prescr ibed Sub s Allowed: subs OK Speci al Instruct ion: 4 drops into right ear BID X 14 days Med icationG enericNa me: Ciloxan Medicati on ID: [id number] D uration Value: 14 Brand Name: Ciloxan [...] mg tablet 12/17 completed Medicati on ID: [id number] D uration Value: 10 Brand Name: amoxicil [...] for pain 01/04 completed Medicati on ID: [id number] D uration Value: 5 Prescri bed By Name: Erin Baeza nd Name: oxycodon e Send Method: E-Prescr ibed Sub s Allowed: subs OK Medic ationGen ericName : oxycodon e Medica tion ID: [id number] D uration Value: 5 Prescri bed By [...] History Condition Response Allergies/Hayfever Y Migraines Y Thyroid Problems Y Anxiety Y GERD/Reflux Y Gynecological HistoryNo gynecological history recorded. Obstetrics History GPAL:G 0 P 0 0 0 0 Past Encounters Encounter ID Performer Location Encounter Start Date Encounter Closed Date Diagnosis/Indication Diagnosis SNOMED-CT Code Diagnosis ICD10 Code [id number] ADRIEL DEVYN, RMA Allergy 100 [facility],[place] [address] [facility] [phone] 03/03/2024 13:52:41 03/03/2024 14:21:57 Perennial allergic rhinitis 330348840 J30.89 [id number] ADRIEL SHEPARD, A Allergy 100 [facility],[place] [address] [place] [address] 03/10/2024 14:18:28 03/10/2024 14:54:23 Perennial allergic rhinitis [id number] J30.89 [id number] QUINN TU, A Allergy 100 [facility],[place] [address] [place] [address] 03/31/2024 15:21:42 03/31/2024 15:25:34 Perennial allergic rhinitis 070160514 J30.89 Health Concerns Section Related Observation LastModified by Organization Detai ls LastModified Time None Recorded Concern Status LastModified by Organization Details LastModified Time None Recorded Payers Encounter Date Sequence Insurance Name Policy Number Policy Felix Covered Member ID Felix Member ID Guarantor Name 03/31/2024 1 [facility] [employer] [facility] [place] (HMO) [id number] Edeusa Jarod [id number] 1 Edeusa Jarod OBGyn Episode No OBEpisode recorded.
--- OUTSIDE RECORDS SUMMARY | 2024-05-17 17:59 | XMS_ITS | Continuity of Care Document ---
Author Organization [place] - [facility], Allergy Address [address] [place] [id number] Care Team Providers Care [place] Actor Name Role Phone ADILENE ACHARYA Primary Care Provider Assessment Encounter Date Assessment Date Assessment LastModified by Organization Details LastModified Time 03/10/2024 03/10/2024 Administered By: MONSERRAT Ram Use of Antihistamines: No If yes: Vial Test Change in medications: No If yes ?? Increase in asthma symptoms If yes, inhaler use: Reaction to last injections: No If yes: ?? Allergy Symptoms: Other: ?? Missed 1 week Dose Notes:?? [email or web address] Not available 03/10/2024 14:25:47 Plan of Treatment Reminders Order Date Submit Date Provider Last Modified By Organization Details Last Modified Time Details Appointments [facility]- Allergy f-up 6mon 2023 01:50P M [...] Recorded Time Postmast oidectom y complica tion 57110123 Active 2021 Other disorder s followin g mastoide ctomy, right ear; Note: Date Diagnose d: 2 4:39 PM (H95.191 ) Not Available [facility] 4 03:07:21 Tinnitus of right ear [id number] 08 Active 2022 Tinnitus , right ear; Note: Date Diagnose d: 11/13/2022 3:13 PM (H93.11) Not Available [facility] 4 03:07:22 Sensorin eural hearing loss in left ear 20220193112 109 Active 2021 Sensorin eural hearing loss, unilater al, left ear, with restrict ed hearing on the contrala teral side; Note: Date Diagnose d: 2 4:39 PM (H90.A22 ) Not Available [facility] 4 03:07:20 Otorrhea of right ear [id number] 36653 Completed 202101/08/2024 Otorrhea , right ear; Note: Date Diagnose d: 2 9:57 AM (H92.11) Otorrh ea, right ear; Note: Date Diagnose d: 06/10/2019 2:45 PM (H92.11) ; Start Date : 06/10/19 Not Available [facility] 4 03:07:20 Allergic rhinitis caused by pollen 10067663 Active 2022 Allergic rhinitis due to pollen; Note: Date Diagnose d: 11/13/2022 3:13 PM (J30.1) Not Available [facility] 4 03:07:22 Partial loss of ear ossicles 58922686 Active 2021 Partial loss of ear ossicles , right ear; Note: Date Diagnose d: 2 9:54 AM (H74.321 ) Not Available [facility] 4 03:07:21 Follow-u p visit Active 2021 Medical surveill ance followin g complete d treatmen t; Note: Date Diagnose d: 04/25/20 22 3:46 PM (Z09) Not Available [facility] 4 03:07:22 Acute pharyngi tis 258890891 Completed 202201/04/2024 Acute pharyngi tis, unspecif ied; Note: Date Diagnose d: 03/19/20 23 9:39 AM (J02.9) Note: Date Diagnose d: 03/19/20 9:39 AM (J02.9) SARIAH NATION MD [address] [place] [address], [place], [phone] , [place] [facility] 4 16:30:12 Chronic inflamma tion of mastoid cavity 702701974 Completed 201901/08/2024 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, right ear; Note: Date Diagnose d: 06/10/2019 2:45 PM (H95.111 ) Not Available [facility] 4 03:07:21 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; Note: Date Diagnose d: 06/10/2019 2:42 PM (383.33) Not Available [facility] 4 03:07:22 Perennia l allergic rhinitis 566934608 Active 2023 MARGA HARRISON RN [address] [address], [place], [phone] , [place] [facility] 4 15:03:21 Mixed conducti ve and sensorin eural hearing loss of right ear 49617930194 105 Active 2023 SARIAH NATION MD [address] [place] [address], [place], [phone] , [place] [facility] 4 16:31:16 Otorrhea of right ear 17814892834 45765 Active 2023 Otorrhea , right ear; Note: Date Diagnose d: 2 9:57 AM (H92.11) Note: Date Diagnose d: 2 9:57 AM (H92.11) Otorrh ea, right ear; Note: Date Diagnose d: 06/10/2019 2:45 PM (H92.11) Note: Date Diagnose d: 06/10/2019 2:45 PM (H92.11) ; Start Date : 06/10/19 SARIAH NATION MD [address] [place] [address],[place] [address], [place], [phone] , [place] [facility] 4 11:27:08 Mixed conducti ve and sensorin eural hearing loss of left ear 33424452851 107 Active 2021 Mixed conducti ve and sensorin eural hearing loss, unilater al, left ear with restrict ed hearing on the contrala teral side; Note: Date Diagnose d: 2 4:39 PM (H90.A32 ) Not Available [facility] 4 03:07:21 Problem Notes None recorded. Procedures Surgical History Date Name Laterality Status Provider Name and Address Organization Details Recorded Time 05/13/20 24 Allergy Immunotherapy Injections completed ADRIEL SHEPARD, RMA [address] [facility] [address],[place] [address] [place] [address], [phone], [place] - [facility] 05/13/2024 15:19:24 04/22/20 24 Allergy Immunotherapy Injections completed MARGA HARRISON RN 100 [facility],[address] [place] [address], [phone], [place] [facility] 04/22/2024 15:06:00 03/31/20 24 Allergy Immunotherapy Injections completed QUINN MAE [facility] [address] [facility] [address] [place] [address], [phone], [facility] - [facility] 03/31/2024 15:25:04 03/10/20 24 Allergy Immunotherapy Injections completed ADRIEL SHEPARD A [address] [facility] [address] [address] [place] [address], [phone], [facility] - [facility] 03/10/2024 14:25:36 03/03/20 24 Allergy Immunotherapy Injections completed ADRIEL SHEPARD A 100 [facility] [place],[address] [place] [address], [phone], [facility] - [facility] 03/03/2024 14:21:21 02/26/20 24 Allergy Immunotherapy Injections completed MARGA HARRISON RN 100 [facility],[address] [place] [address], [phone], [facility] - [facility] 02/26/2024 10:12:39 02/18/20 24 Allergy Immunotherapy Injections completed MARGA HARRISON RN 100 [facility],[address] [place] [address], [phone], [place] [facility] 02/18/2024 16:04:15 02/11/20 24 Allergy Immunotherapy Injections completed QUINN MAE, [facility] [address] [facility] [address] [place] [address], [phone], [place] [facility] 02/11/2024 13:55:12 02/04/20 24 Allergy Immunotherapy Injections completed QUINN MAE A [address] [facility] [address] [place] [address], [phone], [place] [facility] 02/04/2024 13:18:37 01/21/20 24 Allergy Immunotherapy Injections completed QUINN MAE, [facility] [address] [facility] [address], [place], [phone], [place] [facility] 01/21/2024 13:29:56 01/05/20 24 Debridement of Mastoid Cavity right completed SARIAH NATION MD [address] [facility] [address] [place] [address], [phone], [place] [facility] 01/05/2024 11:26:57 01/05/20 24 Allergy Immunotherapy Injections completed MARGA HARRISON RN 100 [facility],[address], [phone], [place] [facility] 01/05/2024 12:01:09 12/17/19 24 Allergy Immunotherapy Injections completed ADRIEL SHEPARD, [facility] [address] [facility] [address] [place] [address], [phone], [place] [facility] 12/17/2023 11:19:30 11/30/19 24 Allergy Immunotherapy Injections completed MARGA HARRISON RN 100 [facility] [place],[address] [place] [address], [phone], [place] [facility] 11/30/2023 15:43:46 Appendectomy completed Mnoy Dailey [place] - [facility] 01/05/2024 10:43:00 Breast reduction completed Mony Dailey [place] - [facility] 01/05/2024 10:43:07 Imaging Results None recorded. Procedure [...] mg tablet 07/15 completed Medicati on ID: [id number] D uration Value: 10 Brand Name: ibuprofe [...] eye drops 01/04 completed Medicati on ID: [id number] D uration Value: 14 Brand Name: Ciloxan Send Method: E-Prescr ibed Sub s Allowed: subs [place] Speci al Instruct ion: 4 drops into right ear BID X 14 days Med icationG enericNa me: Ciloxan Medicati on ID: [id number] D uration Value: 14 Brand Name: Ciloxan [...] mg tablet 12/17 completed Medicati on ID: [id number] D uration Value: 10 Brand Name: amoxicil [...] for pain 01/04 completed Medicati on ID: [id number] D uration Value: 5 Prescri bed By Name: Erin Baeza nd Name: oxycodon e Send Method: E-Prescr ibed Sub s Allowed: subs OK Medic ationGen ericName : oxycodon e Medica tion ID: [id number] D uration Value: 5 Prescri bed By [...] Reported. Medical History Condition Response Allergies/Hayfever Y Anxiety Y Migraines Y Thyroid Problems Y GERD/Reflux Y Gynecological HistoryNo gynecological history recorded. Obstetrics History GPAL:G 0 P 0 0 0 0 Past Encounters Encounter ID Performer Location Encounter Start Date Encounter Closed Date Diagnosis/Indication Diagnosis SNOMED-CT Code Diagnosis ICD10 Code [id number] MONSERRAT RATLIFF Allergy 100 [facility] 100 [facility] [place] [address] 02/11/2024 13:48:11 02/11/2024 14:04:04 Perennial allergic rhinitis [id number] J30.89 [id number] MARGA HARRISON RN Allergy 100 [facility],[place] [address] [address] [place] [address] 02/18/2024 15:56:39 02/18/2024 16:04:43 Perennial allergic rhinitis [id number] J30.89 [id number] MARGA HARRISON RN Allergy 100 [facility],[place] [address] [address] [facility] [place] [address] 02/26/2024 10:03:49 02/26/2024 10:13:06 Perennial allergic rhinitis [id number] J30.89 [id number] [facility], [facility] Allergy 100 [facility],[place] [address] [address] [place] [address] 03/03/2024 13:52:41 03/03/2024 14:21:57 Perennial allergic rhinitis [id number] J30.89 [id number] [facility], A Allergy 100 [facility],[place] [address] [address] [place] [address] 03/10/2024 14:18:28 03/10/2024 14:54:23 Perennial allergic rhinitis [id number] J30.89 Health Concerns Section Related Observation LastModified by Organization Detai ls LastModified Time None Recorded Concern Status LastModified by Organization Details LastModified Time None Recorded Payers Encounter Date Sequence Insurance Name Policy Number Policy Felix Covered Member ID Felix Member ID Guarantor Name 03/10/2024 1 [facility] [place] [employer] (HMO) [id number] Edeusa Jarod [id number] Edeusa Jarod OBGyn Episode No OBEpisode recorded.
--- OUTSIDE RECORDS SUMMARY | 2024-05-17 17:59 | XMS_ITS | Data Portability ---
Author Organization [place] - [facility], Allergy Address [address] [place] [id number] Care Team Providers Care Metal Inspector Name Role Phone ADILENE ACHARYA Primary Care Provider [phone] Assessment Encounter Date Assessment Date Assessment LastModified by Organization Details LastModified Time 03/03/2024 03/03/2024 Administered By: Rosa Bowman Use of Antihistamines: No If yes: Vial Test Change in medications: No If yes ?? Increase in asthma symptoms If yes, inhaler use: Reaction to last injections: No If yes: ?? Allergy Symptoms: Other: ?? Missed 1 week Dose Notes:?? [email or web address] Not available 03/03/2024 14:21:26 03/10/2024 03/10/2024 Administered By: MONSERRAT Ram Use of Antihistamines: No If yes: Vial Test Change in medications: No If yes ?? Increase in asthma symptoms If yes, inhaler use: Reaction to last injections: No If yes: ?? Allergy Symptoms: Other: ?? Missed 1 week Dose Notes:?? [email or web address] Not available 03/10/2024 14:25:47 03/31/2024 03/31/2024 Administered By: Marga Harrison RN Use of Antihistamines: No If yes: Vial Test Yes Change in medications: No If yes ?? Increase in asthma symptoms No Asthma Hx If yes, inhaler use: Reaction to last injections: No If yes: ?? Allergy Symptoms: Other: ?? Missed 1 week Yes Dose Notes:??missed two weeks [email or web address] Not available 03/31/2024 15:24:37 04/22/2024 04/22/2024 Administered By: Marga Harrison RN Use of Antihistamines: No If yes: Vial Test Change in medications: No If yes ?? Increase in asthma symptoms No Asthma Hx If yes, inhaler use: Reaction to last injections: No If yes: ?? Allergy Symptoms: Other: ?? Missed 1 week Dose Decreased Notes:??missed 2 weeks [email or web address] Not available 04/22/2024 15:06:09 05/13/2024 05/13/2024 Administered By: MONSERRAT Ram Use [...] Organization Details Last Modified Time Details Appointments [facility] hed- Allergy f-up 6mon 2023 01:50P M SARIAH [...] Recorded Time Postmast oidectom y complica tion 04644522 Active 2021 Other disorder s followin g mastoide ctomy, right ear; Note: Date Diagnose d: 2 4:39 PM (H95.191 ) Not Available [facility] 4 03:07:21 Tinnitus of right ear [id number] 08 Active 2022 Tinnitus , right ear; Note: Date Diagnose d: 11/13/2022 3:13 PM (H93.11) Not Available [facility] 4 03:07:22 Sensorin eural hearing loss in left ear 88097881392 109 Active 2021 Sensorin eural hearing loss, unilater al, left ear, with restrict ed hearing on the contrala teral side; Note: Date Diagnose d: 2 4:39 PM (H90.A22 ) Not Available [facility] 4 03:07:20 Otorrhea of right ear [id number] 67341 Completed 202101/08/2024 Otorrhea , right ear; Note: Date Diagnose d: 2 9:57 AM (H92.11) Otorrh ea, right ear; Note: Date Diagnose d: 06/10/2019 2:45 PM (H92.11) ; Start Date : 06/10/19 Not Available [facility] 4 03:07:20 Allergic rhinitis caused by pollen 73507686 Active 2022 Allergic rhinitis due to pollen; Note: Date Diagnose d: 11/13/2022 3:13 PM (J30.1) Not Available [facility] 4 03:07:22 Partial loss of ear ossicles 10749578 Active 2021 Partial loss of ear ossicles , right ear; Note: Date Diagnose d: 2 9:54 AM (H74.321 ) Not Available [facility] 4 03:07:21 Follow-u p visit Active 2021 Medical surveill ance followin g complete d treatmen t; Note: Date Diagnose d: 04/25/20 22 3:46 PM (Z09) Not Available [facility] 4 03:07:22 Acute pharyngi tis 415963061 Completed 202201/04/2024 Acute pharyngi tis, unspecif ied; Note: Date Diagnose d: 03/19/20 23 9:39 AM (J02.9) Note: Date Diagnose d: 03/19/20 23 9:39 AM (J02.9) SARIAH NATION MD [address] [place] [address], [facility] [place], [address] , [place] [facility] 4 16:30:12 Chronic inflamma tion of mastoid cavity 553767520 Completed 201901/08/2024 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, right ear; Note: Date Diagnose d: 06/10/2019 2:45 PM (H95.111 ) Not Available [facility] 4 03:07:21 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; Note: Date Diagnose d: 06/10/2019 2:42 PM (383.33) Not Available [facility] 4 03:07:22 Perennia l allergic rhinitis 149538836 Active 2023 MARGA HARRISON RN [address] [facility],[place] [address], [place], [address] , [facility] 4 15:03:21 Mixed conducti ve and sensorin eural hearing loss of right ear 82109576334 105 Active 2023 SARIAH NATION MD [address] [facility],[place] [address], [place], [place], [address] , [place] - [facility] 4 16:31:16 Otorrhea of right ear [id number] 55892 Active 2023 Otorrhea , right ear; Note: Date Diagnose d: 2 9:57 AM (H92.11) Note: Date Diagnose d: 2 9:57 AM (H92.11) Otorrh ea, right ear; Note: Date Diagnose d: 06/10/2019 2:45 PM (H92.11) Note: Date Diagnose d: 06/10/2019 2:45 PM (H92.11) ; Start Date : 06/10/19 SARIAH NATION MD [address] [facility],[place] [address], [place], [address] , [facility] - [facility] 4 11:27:08 Mixed conducti ve and sensorin eural hearing loss of left ear 39238043459 107 Active 2021 Mixed conducti ve and sensorin eural hearing loss, unilater al, left ear with restrict ed hearing on the contrala teral side; Note: Date Diagnose d: 2 4:39 PM (H90.A32 ) Not Available [facility] 4 03:07:21 Problem Notes None recorded. Procedures Surgical History Date Name Laterality Status Provider Name and Address Organization Details Recorded Time 05/13/20 24 Allergy Immunotherapy Injections completed ADRIEL SHEPARD RMBennett [address],[place] [address] [place] [address], [address], [place] - [facility] 05/13/2024 15:19:24 04/22/20 24 Allergy Immunotherapy Injections completed MARGA HARRISON RN [address],[place] [address] [place] [address], [phone], [place] - [facility] 04/22/2024 15:06:00 03/31/20 24 Allergy Immunotherapy Injections completed MONSERRAT RATLIFF [address],[place] [address], [place], [address], [place] [facility] 03/31/2024 15:25:04 03/10/20 24 Allergy Immunotherapy Injections completed ADRIEL SHEPARD RMA [address],[place] [address] [place] [address], [address], [place] [facility] 03/10/2024 14:25:36 03/03/20 24 Allergy Immunotherapy Injections completed MONSERRAT RAM [address],[place] [address] [place] [address], [address], [place] [facility] 03/03/2024 14:21:21 02/26/20 24 Allergy Immunotherapy Injections completed MARGA HARRISON RN [address],[place] [address] [place] [address], [address], [place] [facility] 02/26/2024 10:12:39 02/18/20 24 Allergy Immunotherapy Injections completed MARGA HARRISON RN [address],[place] [address] [place] [address], [address], [place] [facility] 02/18/2024 16:04:15 02/11/20 24 Allergy Immunotherapy Injections completed MONSERRAT RATLIFF [address],[place] [address], [place], [address], [place] [facility] 02/11/2024 13:55:12 02/04/20 24 Allergy Immunotherapy Injections completed MONSERRAT RATLIFF [address],[place] [address], [place], [address], [place] [facility] 02/04/2024 13:18:37 01/21/20 24 Allergy Immunotherapy Injections completed ROSA BOWMAN, REPLACED BY [facility] [address] [facility],[address], [address], [facility] - [facility] 01/21/2024 13:29:56 01/05/20 24 Debridement of Mastoid Cavity right completed SARIAH NATION MD [address] [facility],[address], [address], [facility] 01/05/2024 11:26:57 01/05/20 24 Allergy Immunotherapy Injections completed MARGA HARRISON RN [address] [facility],[address], [address], [facility] 01/05/2024 12:01:09 12/17/19 24 Allergy Immunotherapy Injections completed ADRIEL SHEPARD, REPLACED BY [facility] [address] [facility],[address], [address], [facility] 12/17/2023 11:19:30 11/30/19 24 Allergy Immunotherapy Injections completed MARGA HARRISON RN [address] [facility],[address], [address], [facility] 11/30/2023 15:43:46 Appendectomy completed Mony Dailey [place] - [facility] 01/05/2024 10:43:00 Breast reduction completed Mony Dailey [place] - [facility] 01/05/2024 10:43:07 Imaging Results None [...] mg tablet 07/15 completed Medicati on ID: [id number] D uration Value: 10 Brand Name: ibuprofe [...] eye drops 01/04 completed Medicati on ID: [id number] D uration Value: 14 Brand Name: Ciloxan Send Method: E-Prescr ibed Sub s Allowed: subs [place] Speci al Instruct ion: 4 drops into right ear BID X 14 days [facility] Ciloxan Medicati on ID: [id number] D uration Value: 14 Brand Name: Ciloxan Send Method: E-Prescr ibed Sub s Allowed: subs [place] Speci al Instruct ion: 4 drops into right ear BID X 14 days Med [facility] me: Ciloxan Not Available Not Available Not [...] mg tablet 12/17 completed Medicati on ID: [id number] D uration Value: 10 Brand Name: amoxicil ann marie-pot clavulan ate Send Method: E-Prescr ibed Sub s Allowed: subs OK Billyi al Instruct ion: TAKE 1 TABLET EVERY TWELVE HOURS UNTIL FINISHED Medicat ionGener icName: amoxicil ann marie-pot clavulan ate Not Available Not Available Not Available oxycodone 5 mg tablet Take 1 tablet by mouth every six hours as needed for pain 01/04 completed Medicati on ID: [id number] D uration Value: 5 Prescri bed By Name: Erin Baeza nd Name: oxycodon e Send Method: E-Prescr ibed Sub s Allowed: subs OK Medic ationGen ericName : oxycodon e Medica tion ID: [id number] D uration Value: 5 Prescri bed By [...] Diagnosis/Indication Diagnosis SNOMED-CT Code Diagnosis ICD10 Code 5345 MARGA HARRISON RN Allergy [address] [place] [address] [place] [address] 11/30/2023 14:53:22 11/30/2023 16:16:05 Perennial allergic rhinitis 423982590 J30.89 [id number] ADRIEL SHEPARD [facility] [address] [place] [address] [place] [address] 12/17/2023 10:56:38 12/17/2023 13:47:54 Perennial allergic rhinitis 610944461 J30.89 [id number] SARIAH NATION MD [facility] Briannamelony [address] [place] [address] 01/05/2024 10:28:27 01/05/2024 12:02:58 Follow-up visit [id number] Z09 Partial lo ss of ear ossicles 52927277 H74.321 Mixed cond uctive and sensorineural hearing loss of right ear 2100002297 9105 H90.A31 Otorrhea of right ear 10 46351686 166972 H92.11 Postmastoi dectomy complication 73568828 H95.191 Allergic r hinitis caused by pollen 05832366 J30.1 [id number] MARGA HARRISON RN Allergy [address] [place] [address] it[address] [place] [address] 01/05/2024 10:28:27 01/05/2024 12:02:58 Perennial allergic rhinitis 262475437 J30.89 [id number] ROSA BOWMAN REPLACED BY [facility] Allergy [address] [place] [address] it[address] [place] [address] 01/21/2024 13:03:22 01/21/2024 15:14:22 Perennial allergic rhinitis 760198719 J30.89 [id number] ROSA BOWMAN REPLACED BY [facility] Allergy [address] [place] [address] it[address] [place] [address] 02/04/2024 12:50:27 02/04/2024 13:52:32 Perennial allergic rhinitis 209918332 J30.89 [id number] ROSA BOWMAN REPLACED BY [facility] Allergy [address] [place] [address] it[address] [place] [address] 02/11/2024 13:48:11 02/11/2024 14:04:04 Perennial allergic rhinitis 434099777 J30.89 [id number] MARGA HARRISON RN Allergy [address] [place] [address] it[address] 100 [facility] [place] [address] 02/18/2024 15:56:39 02/18/2024 16:04:43 Perennial allergic rhinitis 860669718 J30.89 [id number] MARGA HARRISON RN Allergy [address] [place] [address] it[address] [place] [address] 02/26/2024 10:03:49 02/26/2024 10:13:06 Perennial allergic rhinitis 817781615 J30.89 [id number] ADRIEL SHEPARD REPLACED BY [facility] Allergy [address] [facility],[place] [address] [place] [address] 03/03/2024 13:52:41 03/03/2024 14:21:57 Perennial allergic rhinitis 251708560 J30.89 [id number] ADRIEL SOLIS, A Allergy [address] [facility] [address] [place] [address] 03/10/2024 14:18:28 03/10/2024 14:54:23 Perennial allergic rhinitis 426392878 J30.89 [id number] ROSA TU, REPLACED BY [facility] Allergy [address] [facility],[address] [place] [address] 03/31/2024 15:21:42 03/31/2024 15:25:34 Perennial allergic rhinitis [id number] J30.89 [id number] MARGA HARRISON 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 operator 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 [address] [facility],[address] [place] [address] 04/22/2024 14:47:50 04/22/2024 15:06:28 Perennial allergic rhinitis 874107226 J30.89 [id number] ADRIEL IRMA, A Allergy [address] [facility],[address] [place] [address] 05/13/2024 14:51:58 05/13/2024 15:19:45 Perennial allergic rhinitis 680411723 J30.89 Health Concerns Section Related Observation LastModified by Organization Detai ls LastModified Time None Recorded Concern Status LastModified by Organization Details LastModified Time None Recorded Advance Directives Directive None Recorded Payers Encounter Date Sequence Insurance Name Policy Number Policy Felix Covered Member ID Felix Member ID Guarantor Name 03/03/2024 1 [facility] [employer] [place] [employer] (HMO) [id number] Edeusa Jarod [id number] 1 Edeusa Jarod 03/10/2024 1 [facility] [employer] [place] [employer] (HMO) [id number] Edeusa Jarod [id number] 1 Edeusa Jarod 03/31/2024 1 [facility] [employer] [place] [employer] (HMO) [id number] Edeusa Jarod [id number] 1 Edeusa Jarod 04/22/2024 1 [facility] [employer] [place] [employer] (HMO) [id number] Edeusa Jarod [id number] 1 Edeusa Jarod 05/13/2024 1 [facility] [employer] [place] [employer] (HMO) [id number] Edeusa Jarod [id number] 1 Edeusa Jarod OBGyn Episode No OBEpisode recorded.
--- OUTSIDE RECORDS SUMMARY | 2024-05-17 17:59 | XMS_ITS | Continuity of Care Document ---
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 [email or web address] Not available 03/03/2024 14:21:26 Plan of Treatment Reminders Order Date Submit [...] Recorded Time Postmast oidectom y complica tion 81204666 Active 2021 Other disorder s followin g mastoide ctomy, right ear; Note: Date Diagnose d: 2 4:39 PM (H95.191 ) Not Available [facility] 4 03:07:21 Tinnitus of right ear [id number] 08 Active 2022 Tinnitus , right ear; Note: Date Diagnose d: 11/13/2022 3:13 PM (H93.11) Not Available [facility] 4 03:07:22 Sensorin eural hearing loss in left ear 84563364727 109 Active 2021 Sensorin eural hearing loss, unilater al, left ear, with restrict ed hearing on the contrala teral side; Note: Date Diagnose d: 2 4:39 PM (H90.A22 ) Not Available [facility] 4 03:07:20 Otorrhea of right ear [id number] 65924 Completed 202101/08/2024 Otorrhea , right ear; Note: Date Diagnose d: 2 9:57 AM (H92.11) Otorrh ea, right ear; Note: Date Diagnose d: 06/10/2019 2:45 PM (H92.11) ; Start Date : 06/10/19 Not Available [facility] 4 03:07:20 Allergic rhinitis caused by pollen 67915662 Active 2022 Allergic rhinitis due to pollen; Note: Date Diagnose d: 11/13/2022 3:13 PM (J30.1) Not Available [facility] 4 03:07:22 Partial loss of ear ossicles 68730388 Active 2021 Partial loss of ear ossicles , right ear; Note: Date Diagnose d: 2 9:54 AM (H74.321 ) Not Available [facility] 4 03:07:21 Follow-u p visit Active 2021 Medical surveill ance followin g complete d treatmen t; Note: Date Diagnose d: 04/25/20 22 3:46 PM (Z09) Not Available [facility] 4 03:07:22 Acute pharyngi tis 014397363 Completed 202201/04/2024 Acute pharyngi tis, unspecif ied; Note: Date Diagnose d: 03/19/20 23 9:39 AM (J02.9) Note: Date Diagnose d: 03/19/20 9:39 AM (J02.9) SARIAH NATION MD [address] [place], [place] [address], [place], [address] , [place] [facility] 4 16:30:12 Chronic inflamma tion of mastoid cavity 456923624 Completed 201901/08/2024 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, right ear; Note: Date Diagnose d: 06/10/2019 2:45 PM (H95.111 ) Not Available [facility] 4 03:07:21 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; Note: Date Diagnose d: 06/10/2019 2:42 PM (383.33) Not Available [facility] 4 03:07:22 Perennia l allergic rhinitis 488178791 Active 2023 MARGA HARRISON RN [address] [address], [place], [address] , [place] - [facility] 4 15:03:21 Mixed conducti ve and sensorin eural hearing loss of right ear 87000345889 105 Active 2023 SARIAH NATION MD [address] [place] [address], [place], [address] , [place] [facility] 4 16:31:16 Otorrhea of right ear 52632904061 58343 Active 2023 Otorrhea , right ear; Note: Date Diagnose d: 2 9:57 AM (H92.11) Note: Date Diagnose d: 2 9:57 AM (H92.11) Otorrh ea, right ear; Note: Date Diagnose d: 06/10/2019 2:45 PM (H92.11) Note: Date Diagnose d: 06/10/2019 2:45 PM (H92.11) ; Start Date : 06/10/19 SARIAH NATION MD [address] [address], [place], [address] , [place] [facility] 4 11:27:08 Mixed conducti ve and sensorin eural hearing loss of left ear 76423556939 107 Active 2021 Mixed conducti ve and sensorin eural hearing loss, unilater al, left ear with restrict ed hearing on the contrala teral side; Note: Date Diagnose d: 2 4:39 PM (H90.A32 ) Not Available [facility] 4 03:07:21 Problem Notes None recorded. Procedures Surgical History Date Name Laterality Status Provider Name and Address Organization Details Recorded Time 05/13/20 24 Allergy Immunotherapy Injections completed ADRIEL SHEPARD RMA [address],[place] [address] [place] [address], [address], [facility] - [facility] 05/13/2024 15:19:24 04/22/20 24 Allergy Immunotherapy Injections completed MARGA HARRISON RN [address],[place] [place] [address], [address], [facility] - [facility] 04/22/2024 15:06:00 03/31/20 24 Allergy Immunotherapy Injections completed ROSA BOWMAN Bennett [address],[place] [place] [address], [address], [facility] - [facility] 03/31/2024 15:25:04 03/10/20 24 Allergy Immunotherapy Injections completed ADRIEL SHEPARD A [address],[place] [address] [place] [address], [address], [facility] - [facility] 03/10/2024 14:25:36 03/03/20 24 Allergy Immunotherapy Injections completed ADRIEL SHEPARD [facility] [address] [place] [address], [address], [facility] - [facility] 03/03/2024 14:21:21 02/26/20 24 Allergy Immunotherapy Injections completed MARGA HARRISON RN [address] [place] [address], [address], [facility] - [facility] 02/26/2024 10:12:39 02/18/20 24 Allergy Immunotherapy Injections completed MARGA HARRISON RN [address] [place] [address], [address], [place] [facility] 02/18/2024 16:04:15 02/11/20 24 Allergy Immunotherapy Injections completed ROSA BOWMAN, [facility] [address] [place] [address], [address], [place] [facility] 02/11/2024 13:55:12 02/04/20 24 Allergy Immunotherapy Injections completed ROSA BOWMAN A [address],[place] [address], [place], [address], [place] [facility] 02/04/2024 13:18:37 01/21/20 24 Allergy Immunotherapy Injections completed ROSA BOWMAN [facility] [address], [place], [address], [place] [facility] 01/21/2024 13:29:56 01/05/20 24 Debridement of Mastoid Cavity right completed SARIAH NATION MD [address] [place] [address], [address], [place] [facility] 01/05/2024 11:26:57 01/05/20 24 Allergy Immunotherapy Injections completed MARGA HARRISON RN [address] [place] [address], [address], [place] [facility] 01/05/2024 12:01:09 12/17/19 24 Allergy Immunotherapy Injections completed ADRIEL SHEPARD, [facility] [address] [place] [address], [address], [place] [facility] 12/17/2023 11:19:30 11/30/19 24 Allergy Immunotherapy Injections completed MARGA HARRISON RN 100 [facility],[address] [place] [address], [address], [place] [facility] 11/30/2023 15:43:46 Appendectomy completed Mony Dailey [place] - [facility] 01/05/2024 10:43:00 Breast reduction completed Mony Daliey [place] - [facility] 01/05/2024 10:43:07 Imaging Results None recorded. Procedure [...] mg tablet 07/15 completed Medicati on ID: [id number] D uration Value: 10 Brand Name: ibuprofe [...] eye drops 01/04 completed Medicati on ID: [id number] D uration Value: 14 Brand Name: Ciloxan Send Method: E-Prescr ibed Sub s Allowed: subs [place] Speci al Instruct ion: 4 drops into right ear BID X 14 days Med icationG enericNa me: Ciloxan Medicati on ID: [id number] D uration Value: 14 Brand Name: Ciloxan [...] mg tablet 12/17 completed Medicati on ID: [id number] D uration Value: 10 Brand Name: amoxicil [...] for pain 01/04 completed Medicati on ID: [id number] D uration Value: 5 Prescri bed By Name: Erin Baeza nd Name: oxycodon e Send Method: E-Prescr ibed Sub s Allowed: subs OK Medic ationGen ericName : oxycodon e Medica tion ID: [id number] D uration Value: 5 Prescri bed By [...] Diagnosis/Indication Diagnosis SNOMED-CT Code Diagnosis ICD10 Code 99761 MONSERRAT RATLIFF Allergy [address] [place] [address] 02/04/2024 12:50:27 02/04/2024 13:52:32 Perennial allergic rhinitis [id number] J30.89 57242 ROSA BOWMAN, A Allergy 100 [facility],[place] 100 [place] [place] [address] 02/11/2024 13:48:11 02/11/2024 14:04:04 Perennial allergic rhinitis [id number] J30.89 [id number] MARGA HARRISON RN Allergy 100 [facility],[place] [address] [address] [place] [place] [address] 02/18/2024 15:56:39 02/18/2024 16:04:43 Perennial allergic rhinitis 528785467 J30.89 41245 MARGA HARRISON RN Allergy [address] [place] [address],[place] [address] [address] [place] [place] [address] 02/26/2024 10:03:49 02/26/2024 10:13:06 Perennial allergic rhinitis 745640455 J30.89 [id number] ADRIEL IRMAYamila, A Allergy 100 [facility],[place] [address] [address] [place] [place] [address] 03/03/2024 13:52:41 03/03/2024 14:21:57 Perennial allergic rhinitis 403944883 J30.89 Health Concerns Section Related Observation LastModified by Organization Detai ls LastModified Time None Recorded Concern Status LastModified by Organization Details LastModified Time None Recorded Payers Encounter Date Sequence Insurance Name Policy Number Policy Felix Covered Member ID Felix Member ID Guarantor Name 03/03/2024 1 [facility] PUBLIC PLANS [facility] - DIRECT - [employer] (HMO) [id number] Edeusa Jarod [id number] 1 Edeusa Jarod OBGyn Episode No OBEpisode recorded.
--- OUTSIDE RECORDS SUMMARY | 2024-05-17 18:00 | XMS_ITS | Continuity of Care Document ---
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 Increase in asthma symptoms No Asthma Hx If yes, inhaler use: Reaction to last injections: No If yes: ?? Allergy Symptoms: Other: ?? Missed 1 week Dose Notes:?? [email or web address] Not available 02/26/2024 10:12:47 Plan of Treatment Reminders Order Date Submit Date Provider Last Modified By Organization Details Last Modified Time Details Appointments [facility]- Allergy f-up 6mon 2023 01:50P M SARIAH NATION MD Not available Not available Not available Lab None recorded . Referral None recorded . Procedures None recorded . Surgeries None recorded . Imaging None recorded . Medication Orders None recorded . Patient TargetsNo targets recorded. Patient InstructionsNo instructions recorded. Reason for Referral None Reported. Results Created Date Observation Date Name Description Value Unit Range Abnormal Flag Note LastModifiedBy Organization Detail LastModifiedTime 01/28/20 24 06/19/2021 imagi ng/di agnos tic resul t No observ ation record ed. [email or web address] Not Available 19:53:28 01/28/20 24 06/26/2021 imagi ng/di agnos tic resul t No observ ation record ed. [email or web address] Not Available 19:53:30 01/28/20 24 07/15/2022 imagi ng/di agnos tic resul t No observ ation record ed. [email or web address] Not Available 19:53:31 01/28/20 24 03/04/2022 imagi ng/di agnos tic resul t No observ ation record ed. [email or web address] Not Available 19:53:53 01/28/20 24 05/17/2021 imagi ng/di agnos tic resul t No observ ation record ed. [email or web address] Not Available 19:54:04 01/28/2006/06/2019 imagi ng/di agnos tic resul t No observ ation record ed. [email or web address] Not Available 19:54:07 01/28/20 24 07/12/2021 audio gram No observ ation record ed. [email or web address] Not Available 19:54:19 Result Notes None recorded. Problems Name Problem SNOMED Code Status Onset Date Resolution Date Notes Provider Name and Address Organization Details Recorded Time Postmast oidectom y complica tion 16142751 Active 2021 Other disorder s followin g mastoide ctomy, right ear; Note: Date Diagnose d: 2 4:39 PM (H95.191 ) Not Available [facility] 4 03:07:21 Tinnitus of right ear 36363646304 08 Active 2022 Tinnitus , right ear; Note: Date Diagnose d: 11/13/2022 3:13 PM (H93.11) Not Available [facility] 4 03:07:22 Sensorin eural hearing loss in left ear 63005085774 109 Active 2021 Sensorin eural hearing loss, unilater al, left ear, with restrict ed hearing on the contrala teral side; Note: Date Diagnose d: 2 4:39 PM (H90.A22 ) Not Available [facility] 4 03:07:20 Otorrhea of right ear 80910350688 15744 Completed 202101/08/2024 Otorrhea , right ear; Note: Date Diagnose d: 2 9:57 AM (H92.11) Otorrh ea, right ear; Note: Date Diagnose d: 06/10/2019 2:45 PM (H92.11) ; Start Date : 06/10/19 Not Available [facility] 4 03:07:20 Allergic rhinitis caused by pollen 39051970 Active 2022 Allergic rhinitis due to pollen; Note: Date Diagnose d: 11/13/2022 3:13 PM (J30.1) Not Available [facility] 4 03:07:22 Partial loss of ear ossicles 87385946 Active 2021 Partial loss of ear ossicles , right ear; Note: Date Diagnose d: 2 9:54 AM (H74.321 ) Not Available [facility] 4 03:07:21 Follow-u p visit Active 2021 Medical surveill ance followin g complete d treatmen t; Note: Date Diagnose d: 04/25/20 22 3:46 PM (Z09) Not Available [facility] 4 03:07:22 Acute pharyngi tis 016295641 Completed 202201/04/2024 Acute pharyngi tis, unspecif ied; Note: Date Diagnose d: 03/19/20 23 9:39 AM (J02.9) Note: Date Diagnose d: 03/19/20 23 9:39 AM (J02.9) SARIAH NATION MD [address] [place] [address] [place], [address] [facility] - [facility] 4 16:30:12 Chronic inflamma tion of mastoid cavity 484725548 Completed 201901/08/2024 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 - [facility] 4 15:03:21 Mixed conducti ve and sensorin eural hearing loss of right ear 41067216657 105 Active 2023 SARIAH NATION MD 100 [facility], [place], [address] , [facility] 4 16:31:16 Otorrhea of right ear 96732788746 15798 Active 2023 Otorrhea , right ear; Note: Date Diagnose d: 2 9:57 AM (H92.11) Note: Date Diagnose d: 2 9:57 AM (H92.11) Otorrh ea, right ear; Note: Date Diagnose d: 06/10/2019 2:45 PM (H92.11) Note: Date Diagnose d: 06/10/2019 2:45 PM (H92.11) ; Start Date : 06/10/19 SARIAH NATION MD 100 [facility],[address] [address], [place], [address] , [facility] - [facility] 4 11:27:08 Mixed conducti ve and sensorin eural hearing loss of left ear 17305597514 107 Active 2021 Mixed conducti ve and sensorin eural hearing loss, unilater al, left ear with restrict ed hearing on the contrala teral side; Note: Date Diagnose d: 2 4:39 PM (H90.A32 ) Not Available [facility] 4 03:07:21 Problem Notes None recorded. Procedures Surgical History Date Name Laterality Status Provider Name and Address Organization Details Recorded Time 05/13/20 24 Allergy Immunotherapy Injections completed MONSERRAT VELAZQUEZ [address] [facility] [address], [place], [address], [place] - [facility] 05/13/2024 15:19:24 04/22/20 24 Allergy Immunotherapy Injections completed MARGA HARRISON RN [address] [facility],[address], [place], [address], [place] [facility] 04/22/2024 15:06:00 03/31/20 24 Allergy Immunotherapy Injections completed MONSERRAT RATLIFF [address], [place], [address], [place] [facility] 03/31/2024 15:25:04 03/10/20 24 Allergy Immunotherapy Injections completed ADRIEL SHEPARD RMBennett [address] [place] [address], [address], [place] [facility] 03/10/2024 14:25:36 03/03/20 24 Allergy Immunotherapy Injections completed ADRIEL SHEPARD RMBennett [address] [place] [address], [address], [place] [facility] 03/03/2024 14:21:21 02/26/20 24 Allergy Immunotherapy Injections completed MARGA HARRISON RN [address] [facility],[address], [address], [place] [facility] 02/26/2024 10:12:39 02/18/20 24 Allergy Immunotherapy Injections completed MARGA HARRISON RN [address] [place] [address], [address], [place] [facility] 02/18/2024 16:04:15 02/11/20 24 Allergy Immunotherapy Injections completed MONSERRAT RATLIFF [address], [place], [address], [place] [facility] 02/11/2024 13:55:12 02/04/20 24 Allergy Immunotherapy Injections completed MONSERRAT RATLIFF [address], [place], [address], [place] [facility] 02/04/2024 13:18:37 01/21/20 24 Allergy Immunotherapy Injections completed MONSERRAT RATLIFF [address], [address], [facility] - [facility] 01/21/2024 13:29:56 01/05/20 24 Debridement of Mastoid Cavity right completed SARIAH NATION MD 100 [facility],[address], [address], [facility] - [facility] 01/05/2024 11:26:57 01/05/20 24 Allergy Immunotherapy Injections completed MARGA HARRISON RN 100 [facility],[address], [address], [facility] - [facility] 01/05/2024 12:01:09 12/17/19 24 Allergy Immunotherapy Injections completed MONSERRAT VELAZQUEZ 100 [facility],[address], [address], [facility] - [facility] 12/17/2023 11:19:30 11/30/19 24 Allergy Immunotherapy Injections completed MARGA HARRISON RN 100 [facility],[address], [address], [facility] - [facility] 11/30/2023 15:43:46 Appendectomy completed Mony Dailey [place] - [facility] 01/05/2024 10:43:00 Breast reduction completed Mony Dailey [place] [facility] 01/05/2024 10:43:07 Imaging Results None recorded. Procedure [...] mg tablet 07/15 completed Medicati on ID: [id number] D uration Value: 10 Brand Name: ibuprofe [...] eye drops 01/04 completed Medicati on ID: [id number] D uration Value: 14 Brand Name: Ciloxan Send Method: E-Prescr ibed Sub s Allowed: subs [place] Speci al Instruct ion: 4 drops into right ear BID X 14 days Med icationG enericNa me: Ciloxan Medicati on ID: [id number] D uration Value: 14 Brand Name: Ciloxan [...] mg tablet 12/17 completed Medicati on ID: [id number] D uration Value: 10 Brand Name: amoxicil [...] for pain 01/04 completed Medicati on ID: [id number] D uration Value: 5 Prescri bed By Name: Erin Baeza nd Name: oxycodon e Send Method: E-Prescr ibed Sub s Allowed: subs [place] Medic ationGen ericName : oxycodon e Medica tion ID: [id number] D uration Value: 5 Prescri bed By [...] Diagnosis/Indication Diagnosis SNOMED-CT Code Diagnosis ICD10 Code 85813 MONSERRAT RATLIFF Allergy [address] [place] [address] 02/04/2024 12:50:27 02/04/2024 13:52:32 Perennial allergic rhinitis 868112995 J30.89 16351 MONSERRAT RATLIFF Allergy [address] [place] [address] 02/11/2024 13:48:11 02/11/2024 14:04:04 Perennial allergic rhinitis 540531780 J30.89 [id number] MARGA HARRISON RN Allergy [address] [place] [address] 02/18/2024 15:56:39 02/18/2024 16:04:43 Perennial allergic rhinitis 645766369 J30.89 23284 MARGA HARRISON RN Allergy [address] [place], [place] [address]FIE AMALIA OROZCO [address] 02/26/2024 10:03:49 02/26/2024 10:13:06 Perennial allergic rhinitis 156625117 J30.89 Health Concerns Section Related Observation LastModified by Organization Dylan ls LastModified Time None Recorded Concern Status LastModified by Organization Details LastModified Time None Recorded Payers Encounter Date Sequence Insurance Name Policy Number Policy Felix Covered Member ID Felix Member ID Guarantor Name 02/26/2024 1 [facility] [employer] PLANS [facility] - DIRECT - KASHIA ZERO (HMO) [id number] Edeusa Jarod [id number] 1 Edeusa Jarod OBGyn Episode No OBEpisode recorded.
--- OUTSIDE RECORDS SUMMARY | 2024-05-17 18:00 | XMS_ITS | Continuity of Care Document ---
Author Organization [place] [facility], Allergy Address [address] [place] [address] Care Team Providers Care Director Food Safety Name Role Phone ADILENE ACHARYA Primary Care Provider Assessment Encounter Date Assessment Date Assessment LastModified by Organization Details LastModified Time 02/18/2024 02/18/2024 Administered By: Marga Harrison RN Use of Antihistamines: No If yes: Vial Test Change in medications: No If yes ?? Increase in asthma symptoms No Asthma Hx If yes, inhaler use: Reaction to last injections: No If yes: ?? Allergy Symptoms: Other: ?? Missed 1 week Dose Notes:?? [email or web address] Not available 02/18/2024 16:04:23 Plan of Treatment Reminders Order Date Submit [...] Recorded Time Postmast oidectom y complica tion 10012605 Active 2021 Other disorder s followin g mastoide ctomy, right ear; Note: Date Diagnose d: 2 4:39 PM (H95.191 ) Not Available [facility] 4 03:07:21 Tinnitus of right ear [id number] 08 Active 2022 Tinnitus , right ear; Note: Date Diagnose d: 11/13/2022 3:13 PM (H93.11) Not Available [facility] 4 03:07:22 Sensorin eural hearing loss in left ear 57705134436 109 Active 2021 Sensorin eural hearing loss, unilater al, left ear, with restrict ed hearing on the contrala teral side; Note: Date Diagnose d: 2 4:39 PM (H90.A22 ) Not Available [facility] 4 03:07:20 Otorrhea of right ear [id number] 14157 Completed 202101/08/2024 Otorrhea , right ear; Note: Date Diagnose d: 2 9:57 AM (H92.11) Otorrh ea, right ear; Note: Date Diagnose d: 06/10/2019 2:45 PM (H92.11) ; Start Date : 06/10/19 Not Available [facility] 4 03:07:20 Allergic rhinitis caused by pollen 31364841 Active 2022 Allergic rhinitis due to pollen; Note: Date Diagnose d: 11/13/2022 3:13 PM (J30.1) Not Available [facility] 4 03:07:22 Partial loss of ear ossicles 95369869 Active 2021 Partial loss of ear ossicles , right ear; Note: Date Diagnose d: 2 9:54 AM (H74.321 ) Not Available [facility] 4 03:07:21 Follow-u p visit Active 2021 Medical surveill ance followin g complete d treatmen t; Note: Date Diagnose d: 04/25/20 22 3:46 PM (Z09) Not Available [facility] 4 03:07:22 Acute pharyngi tis 621292230 Completed 202201/04/2024 Acute pharyngi tis, unspecif ied; Note: Date Diagnose d: 03/19/20 23 9:39 AM (J02.9) Note: Date Diagnose d: 03/19/20 23 9:39 AM (J02.9) SARIAH NATION MD [address] [place] [address] AMALIA tracey, [address] [facility] 4 16:30:12 Chronic inflamma tion of mastoid cavity 897671421 Completed 201901/08/2024 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, right ear; Note: Date Diagnose d: 06/10/2019 2:45 PM (H95.111 ) Not Available [facility] 4 03:07:21 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; Note: Date Diagnose d: 06/10/2019 2:42 PM (383.33) Not Available [facility] 4 03:07:22 Perennia l allergic rhinitis 564044419 Active 2023 MARGA HARRISON RN 100 [facility],[place] [address], [place], [address] , [facility] 4 15:03:21 Mixed conducti ve and sensorin eural hearing loss of right ear 79755207134 105 Active 2023 SARIAH NATION MD 100 [facility] [address], [place], [address] , [facility] 4 16:31:16 Otorrhea of right ear [id number] 83376 Active 2023 Otorrhea , right ear; Note: Date Diagnose d: 2 9:57 AM (H92.11) Note: Date Diagnose d: 2 9:57 AM (H92.11) Otorrh ea, right ear; Note: Date Diagnose d: 06/10/2019 2:45 PM (H92.11) Note: Date Diagnose d: 06/10/2019 2:45 PM (H92.11) ; Start Date : 06/10/19 SARIAH NATION MD 100 [facility],[place] [address], [place], [address] , [facility] 4 11:27:08 Mixed conducti ve and sensorin eural hearing loss of left ear 75659826657 107 Active 2021 Mixed conducti ve and sensorin eural hearing loss, unilater al, left ear with restrict ed hearing on the contrala teral side; Note: Date Diagnose d: 2 4:39 PM (H90.A32 ) Not Available [facility] 4 03:07:21 Problem Notes None recorded. Procedures Surgical History Date Name Laterality Status Provider Name and Address Organization Details Recorded Time 05/13/20 24 Allergy Immunotherapy Injections completed MONSERRAT VELAZQUEZ [facility] [place] [address], [place], [address], [place] [facility] 05/13/2024 15:19:24 04/22/20 24 Allergy Immunotherapy Injections completed MARGA HARRISON RN [address] [facility] [place] [address], [place], [address], [place] [facility] 04/22/2024 15:06:00 03/31/20 24 Allergy Immunotherapy Injections completed MONSERRAT RATLIFF [address] [facility] [address], [place], [address], [place] [facility] 03/31/2024 15:25:04 03/10/20 24 Allergy Immunotherapy Injections completed ADRIEL SHEPARD RMBennett [address] [facility],[place] [place] [address], [address], [place] [facility] 03/10/2024 14:25:36 03/03/20 24 Allergy Immunotherapy Injections completed ADRIEL SHEPARD RMBennett [address] [facility] [place] [address], [address], [place] [facility] 03/03/2024 14:21:21 02/26/20 24 Allergy Immunotherapy Injections completed MARGA HARRISON RN [address] [facility] [place],[address], [address], [place] [facility] 02/26/2024 10:12:39 02/18/20 24 Allergy Immunotherapy Injections completed MARGA HARRISON RN [address] [facility] [place] [address], [address], [place] [facility] 02/18/2024 16:04:15 02/11/20 24 Allergy Immunotherapy Injections completed MONSERRAT RATLIFF [address] [facility] [address], [place], [address], [place] [facility] 02/11/2024 13:55:12 02/04/20 24 Allergy Immunotherapy Injections completed MONSERRAT RATLIFF [address] [facility], [place], [address], [place] [facility] 02/04/2024 13:18:37 01/21/20 24 Allergy Immunotherapy Injections completed MONSERRAT RATLIFF [address] [facility], [address], [facility] 01/21/2024 13:29:56 01/05/20 24 Debridement of Mastoid Cavity right completed SARIAH NATION MD 100 [facility],[address], [address], [facility] 01/05/2024 11:26:57 01/05/20 24 Allergy Immunotherapy Injections completed MARGA HARRISON RN 100 [facility],[address], [address], [facility] 01/05/2024 12:01:09 12/17/19 24 Allergy Immunotherapy Injections completed MONSERRAT VELAZQUEZ 100 [facility],[address], [address], [facility] 12/17/2023 11:19:30 11/30/19 24 Allergy Immunotherapy Injections completed MARGA HARRISON RN 100 [facility],[address], [address], [facility] 11/30/2023 15:43:46 Appendectomy completed Mony Dailey [facility] 01/05/2024 10:43:00 Breast reduction completed Mony Dailey [facility] 01/05/2024 10:43:07 Imaging Results None recorded. Procedure [...] mg tablet 07/15 completed Medicati on ID: [id number] D uration Value: 10 Brand Name: ibuprofe [...] eye drops 01/04 completed Medicati on ID: [id number] D uration Value: 14 Brand Name: Ciloxan Send Method: E-Prescr ibed Sub s Allowed: subs [place] Speci al Instruct ion: 4 drops into right ear BID X 14 days Med icationG enericNa me: Ciloxan Medicati on ID: [id number] D uration Value: 14 Brand Name: Ciloxan [...] mg tablet 12/17 completed Medicati on ID: [id number] D uration Value: 10 Brand Name: amoxicil [...] for pain 01/04 completed Medicati on ID: [id number] D uration Value: 5 Prescri bed By Name: Erin Baeza nd Name: oxycodon e Send Method: E-Prescr ibed Sub s Allowed: subs OK Medic ationGen ericName : oxycodon e Medica tion ID: [id number] D uration Value: 5 Prescri bed By [...] Diagnosis/Indication Diagnosis SNOMED-CT Code Diagnosis ICD10 Code 03430 MONSERRAT RATLIFF Allergy [address] [place] [address] 01/21/2024 13:03:22 01/21/2024 15:14:22 Perennial allergic rhinitis 108973191 J30.89 41515 QUINN MAE [facility] Allergy [address] [place] [address] 02/04/2024 12:50:27 02/04/2024 13:52:32 Perennial allergic rhinitis 804185535 J30.89 32435 QUINN MAE [facility] Allergy [address] [place] [address] 02/11/2024 13:48:11 02/11/2024 14:04:04 Perennial allergic rhinitis 604973452 J30.89 63372 MARGA HARRISON RN Allergy [address] [place], [place] [address]FIE AMALIA OROZCO [address] 02/18/2024 15:56:39 02/18/2024 16:04:43 Perennial allergic rhinitis 100100249 J30.89 Health Concerns Section Related Observation LastModified by Organization Detai ls LastModified Time None Recorded Concern Status LastModified by Organization Details LastModified Time None Recorded Payers Encounter Date Sequence Insurance Name Policy Number Policy Felix Covered Member ID Felix Member ID Guarantor Name 02/18/2024 1 [facility] [employer] [facility] - [facility] - CROW ZERO (HMO) [id number] Edeusa Jarod [id number] 1 Edeusa Jarod OBGyn Episode No OBEpisode recorded.
[2024-05-18 14:13] LABS: RPR Quantitative Reactive 1:1 (Nonreactive)
[2024-05-18 14:14] LABS: T.Pallidum Particle Agg Test Reactive (Nonreactive)
== END 2024-05-11 11:04 | disposition home or self-care (01) ==
LOC: HO.HHCL 11:03
PROVIDERS: Visit Provider Student in an Organized Health Care Education/Training Program
DX: Z00.00 Encounter for general adult medical examination without abnormal findings (principal); D64.9 Anemia, unspecified
CPT/HCPCS: 36415; 80053; 80061; 82306; 82728; 83036; 83540; 84439; 84443; 85027; 86592; 86704; 86706; 86780; 86803; 87340; 87389; 87491; 87591

== ENCOUNTER → 2024-05-20 09:00 | Outpatient (BNV) | payer OTHER, SELFPAY | PROVIDERS: PCP Student in an Organized Health Care Education/Training Program; Visit Provider Internal Medicine | DX: Z12.31 Encounter for screening mammogram for malignant neoplasm of breast (principal) | CPT/HCPCS: 77063; 77067 ==

== ENCOUNTER 2024-05-20 09:07 | Outpatient (REF) | payer OTHER, SELFPAY ==
--- OUTSIDE RECORDS SUMMARY | 2024-05-20 09:09 | XMS_ITS | Continuity of Care Document ---
Author Organization [place] [facility], Allergy Address [address] [address] Care Team Providers Care Monitor Tech Name Role Phone MARCK ADILENE Primary Care Provider [phone] Assessment Encounter Date Assessment Date Assessment LastModified [...] Organization Details Last Modified Time Details Appointments [facility]- Allergy f-up 6mon 2023 01:50P M SARIAH [...] Recorded Time Postmast oidectom y complica tion 13379538 Active 2021 Other disorder s followin g mastoide ctomy, right ear; Note: Date Diagnose d: 2 4:39 PM (H95.191 ) Not Available [facility] 4 03:07:21 Tinnitus of right ear 64833592019 08 Active 2022 Tinnitus , right ear; Note: Date Diagnose d: 11/13/2022 3:13 PM (H93.11) Not Available [facility] 4 03:07:22 Sensorin eural hearing loss in left ear 21046049789 109 Active 2021 Sensorin eural hearing loss, unilater al, left ear, with restrict ed hearing on the contrala teral side; Note: Date Diagnose d: 2 4:39 PM (H90.A22 ) Not Available [facility] 4 03:07:20 Otorrhea of right ear 92514358539 75440 Completed 202101/08/2024 Otorrhea , right ear; Note: Date Diagnose d: 2 9:57 AM (H92.11) Otorrh ea, right ear; Note: Date Diagnose d: 06/10/2019 2:45 PM (H92.11) ; Start Date : 06/10/19 Not Available [facility] 4 03:07:20 Allergic rhinitis caused by pollen 08195815 Active 2022 Allergic rhinitis due to pollen; Note: Date Diagnose d: 11/13/2022 3:13 PM (J30.1) Not Available [facility] 4 03:07:22 Partial loss of ear ossicles 67634322 Active 2021 Partial loss of ear ossicles , right ear; Note: Date Diagnose d: 2 9:54 AM (H74.321 ) Not Available [facility] 4 03:07:21 Follow-u p visit Active 2021 Medical surveill ance followin g complete d treatmen t; Note: Date Diagnose d: 04/25/20 22 3:46 PM (Z09) Not Available [facility] 4 03:07:22 Acute pharyngi tis 881376436 Completed 202201/04/2024 Acute pharyngi tis, unspecif ied; Note: Date Diagnose d: 03/19/20 23 9:39 AM (J02.9) Note: Date Diagnose d: 03/19/20 9:39 AM (J02.9) SARIAH NATION MD [address] [place] [address], [place], [address] , [place] [facility] 4 16:30:12 Chronic inflamma tion of mastoid cavity 742243133 Completed 201901/08/2024 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, right ear; Note: Date Diagnose d: 06/10/2019 2:45 PM (H95.111 ) Not Available [facility] 4 03:07:21 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; Note: Date Diagnose d: 06/10/2019 2:42 PM (383.33) Not Available [facility] 4 03:07:22 Perennia l allergic rhinitis 656890199 Active 2023 MARGA HARRISON RN [address] [place] [address], [place], [address] , [place] [facility] 4 15:03:21 Mixed conducti ve and sensorin eural hearing loss of right ear 52481820000 105 Active 2023 SARIAH NATION MD [address] [place] [address], [place], [address] , [place] [facility] 4 16:31:16 Otorrhea of right ear 38753372406 07354 Active 2023 Otorrhea , right ear; Note: Date Diagnose d: 2 9:57 AM (H92.11) Note: Date Diagnose d: 2 9:57 AM (H92.11) Otorrh ea, right ear; Note: Date Diagnose d: 06/10/2019 2:45 PM (H92.11) Note: Date Diagnose d: 06/10/2019 2:45 PM (H92.11) ; Start Date : 06/10/19 SARIAH NATION MD [address] [place] [address], [place], [address] , [place] [facility] 4 11:27:08 Mixed conducti ve and sensorin eural hearing loss of left ear 84490185230 107 Active 2021 Mixed conducti ve and sensorin eural hearing loss, unilater al, left ear with restrict ed hearing on the contrala teral side; Note: Date Diagnose d: 2 4:39 PM (H90.A32 ) Not Available [facility] 4 03:07:21 Problem Notes None recorded. Procedures Surgical History Date Name Laterality Status Provider Name and Address Organization Details Recorded Time 05/13/20 24 Allergy Immunotherapy Injections completed ADRIEL SHEPARD, RMA [address],[place] [address] [place] [address], [address], [place] [facility] 05/13/2024 15:19:24 04/22/20 24 Allergy Immunotherapy Injections completed MARGA HARRISON RN 100 [facility],[address], [address], [place] [facility] 04/22/2024 15:06:00 03/31/20 24 Allergy Immunotherapy Injections completed QUINN MAE Bennett [address] [facility] [address] [place] [address], [address], [place] [facility] 03/31/2024 15:25:04 03/10/20 24 Allergy Immunotherapy Injections completed ADRIEL SHEPARD RMA [address] [facility] [address] [place] [address], [phone], [facility] - [facility] 03/10/2024 14:25:36 03/03/20 24 Allergy Immunotherapy Injections completed ADRIEL SHEPARD A [address] [facility] [address] [place] [address], [address], [facility] 03/03/2024 14:21:21 02/26/20 24 Allergy Immunotherapy Injections completed MARGA HARRISON RN [address] [facility] [place],[address] [place] [address], [address], [place] [facility] 02/26/2024 10:12:39 02/18/20 24 Allergy Immunotherapy Injections completed MARGA HARRISON RN 100 [facility] [place],[address] [place] [address], [address], [place] [facility] 02/18/2024 16:04:15 02/11/20 24 Allergy Immunotherapy Injections completed QUINN MAE [facility] 100 [facility] [place],[address] [place] [address], [address], [place] [facility] 02/11/2024 13:55:12 02/04/20 24 Allergy Immunotherapy Injections completed QUINN MAE [facility] [address] [facility] [place] [address], [address], [place] [facility] 02/04/2024 13:18:37 01/21/20 24 Allergy Immunotherapy Injections completed QUINN MAE [facility] 100 [facility] [place],[address] [place] [address], [address], [place] [facility] 01/21/2024 13:29:56 01/05/20 24 Debridement of Mastoid Cavity right completed SARIAH NATION MD 100 [facility] [place],[address], [address], [place] [facility] 01/05/2024 11:26:57 01/05/20 24 Allergy Immunotherapy Injections completed MARGA HARRISON RN 100 [facility] [place],[address] [place] [address], [address], [place] [facility] 01/05/2024 12:01:09 12/17/19 24 Allergy Immunotherapy Injections completed ADRIEL SHEPARD [facility] [address] [facility] [place] [address], [address], [place] [facility] 12/17/2023 11:19:30 11/30/19 24 Allergy Immunotherapy Injections completed MARGA HARRISON RN 100 [facility],[address] [place] [address], [address], [place] [facility] 11/30/2023 15:43:46 Appendectomy completed Mony Dailey [place] [facility] 01/05/2024 10:43:00 Breast reduction completed Mony Dailey [place] [facility] 01/05/2024 10:43:07 Imaging Results None recorded. Procedure [...] mg tablet 07/15 completed Medicati on ID: [id number] D uration Value: 10 Brand Name: ibuprofe [...] eye drops 01/04 completed Medicati on ID: [id number] D uration Value: 14 Brand Name: Ciloxan Send Method: E-Prescr ibed Sub s Allowed: subs [place] Speci al Instruct ion: 4 drops into right ear BID X 14 days Med icationG enericNa me: Ciloxan Medicati on ID: [id number] D uration Value: 14 Brand Name: Ciloxan [...] mg tablet 12/17 completed Medicati on ID: [id number] D uration Value: 10 Brand Name: amoxicil [...] for pain 01/04 completed Medicati on ID: [id number] D uration Value: 5 Prescri bed By Name: Erin Baeza nd Name: oxycodon e Send Method: E-Prescr ibed Sub s Allowed: subs OK Medic ationGen ericName : oxycodon e Medica tion ID: [id number] D uration Value: 5 Prescri bed By [...] Diagnosis/Indication Diagnosis SNOMED-CT Code Diagnosis ICD10 Code 19076 MARGA HARRISON RN Allergy [address] [place] [address] AMALIA OROZCO [address] 04/22/2024 14:47:50 04/22/2024 15:06:28 Perennial allergic rhinitis 772811710 J30.89 24759 MONSERRAT RAM Allergy 100 [facility] [address] [place] [address] 05/13/2024 14:51:58 05/13/2024 15:19:45 Perennial allergic rhinitis 095718735 J30.89 Health Concerns Section Related Observation LastModified by Organization Detai ls LastModified Time None Recorded Concern Status LastModified by Organization Details LastModified Time None Recorded Payers Encounter Date Sequence Insurance Name Policy Number Policy Felix Covered Member ID Felix Member ID Guarantor Name 05/13/2024 1 [facility] PUBLIC PLANS [facility] - DIRECT - MATCH-E-BE-NASH-SHE-WISH BAND ZERO (HMO) [id number] Edeusa Jarod [id number] 1 Edeusa Jarod OBGyn Episode No OBEpisode recorded.
--- OUTSIDE RECORDS SUMMARY | 2024-05-20 09:10 | XMS_ITS | Continuity of Care Document ---
Author Organization [place] [facility], Allergy Address [address] [address] Care Team Providers Care Bankruptcy Paralegal Name Role Phone ADILENE ACHARYA Primary Care [...] 1 week Yes Dose Notes:??missed two weeks [email or web address] Not available 03/31/2024 15:24:37 Plan of Treatment Reminders Order Date Submit Date Provider Last Modified By Organization Details Last Modified Time Details Appointments [facility]- Allergy f-up 6mon 2023 01:50P [...] Recorded Time Postmast oidectom y complica tion [id number] Active 2021 Other disorder s followin g mastoide ctomy, right ear; Note: Date Diagnose d: 2 4:39 PM (H95.191 ) Not Available [facility] 4 03:07:21 Tinnitus of right ear [id number] 08 Active 2022 Tinnitus , right ear; Note: Date Diagnose d: 11/13/2022 3:13 PM (H93.11) Not Available [facility] 4 03:07:22 Sensorin eural hearing loss in left ear 47588856515 109 Active 2021 Sensorin eural hearing loss, unilater al, left ear, with restrict ed hearing on the contrala teral side; Note: Date Diagnose d: 2 4:39 PM (H90.A22 ) Not Available [facility] 4 03:07:20 Otorrhea of right ear [id number] 90379 Completed 202101/08/2024 Otorrhea , right ear; Note: Date Diagnose d: 2 9:57 AM (H92.11) Otorrh ea, right ear; Note: Date Diagnose d: 06/10/2019 2:45 PM (H92.11) ; Start Date : 06/10/19 Not Available [facility] 4 03:07:20 Allergic rhinitis caused by pollen 93135306 Active 2022 Allergic rhinitis due to pollen; Note: Date Diagnose d: 11/13/2022 3:13 PM (J30.1) Not Available [facility] 4 03:07:22 Partial loss of ear ossicles 21838681 Active 2021 Partial loss of ear ossicles , right ear; Note: Date Diagnose d: 2 9:54 AM (H74.321 ) Not Available [facility] 4 03:07:21 Follow-u p visit Active 2021 Medical surveill ance followin g complete d treatmen t; Note: Date Diagnose d: 04/25/20 22 3:46 PM (Z09) Not Available [facility] 4 03:07:22 Acute pharyngi tis 306508974 Completed 202201/04/2024 Acute pharyngi tis, unspecif ied; Note: Date Diagnose d: 03/19/20 9:39 AM (J02.9) Note: Date Diagnose d: 03/19/20 9:39 AM (J02.9) SARIAH CHAPIS, MD 100 [facility],[place] [address], [place], [phone] , 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 - [facility] [place] 4 16:31:16 Otorrhea of right ear [id number] 08431 Active 2023 Otorrhea , right ear; Note: Date Diagnose d: 2 9:57 AM (H92.11) Note: Date Diagnose d: 2 9:57 AM (H92.11) Otorrh ea, right ear; Note: Date Diagnose d: 06/10/2019 2:45 PM (H92.11) Note: Date Diagnose d: 06/10/2019 2:45 PM (H92.11) ; Start Date : 06/10/19 SARIAH NATION MD 100 [facility],[place] [address], [place], [address] , [place] [facility] [place] 4 11:27:08 Mixed conducti ve and sensorin eural hearing loss of left ear 98729274406 107 Active 2021 Mixed conducti ve and sensorin eural hearing loss, unilater al, left ear with restrict ed hearing on the contrala teral side; Note: Date Diagnose d: 2 4:39 PM (H90.A32 ) Not Available [facility] 4 03:07:21 Problem Notes None recorded. Procedures Surgical History Date Name Laterality Status Provider Name and Address Organization Details Recorded Time 05/13/20 24 Allergy Immunotherapy Injections completed ADRIEL SHEPARD, RMA [address],[place] [address] [place] [address], [phone], [place] [facility] 05/13/2024 15:19:24 04/22/20 24 Allergy Immunotherapy Injections completed MARGA HARRISON RN 100 [facility],[address] [place] [address], [phone], [place] [facility] 04/22/2024 15:06:00 03/31/20 24 Allergy Immunotherapy Injections completed QUINN MAE Bennett [address] [place] [address], [phone], [place] [facility] 03/31/2024 15:25:04 03/10/20 24 Allergy Immunotherapy Injections completed ADRIEL SHEPARD, RMA [address] [place] [address], [address], [place] [facility] 03/10/2024 14:25:36 03/03/20 24 Allergy Immunotherapy Injections completed ADRIEL SHEPARD RMA [address] [place] [address], [address], [place] [facility] [place] 03/03/2024 14:21:21 02/26/20 24 Allergy Immunotherapy Injections completed MARGA HARRISON RN 100 [facility],[address] [place] [address], [address], [place] [facility] [place] 02/26/2024 10:12:39 02/18/20 24 Allergy Immunotherapy Injections completed MARGA HARRISON RN 100 [facility],[address] [place] [address], [address], [place] [facility] [place] 02/18/2024 16:04:15 02/11/20 24 Allergy Immunotherapy Injections completed QUINN MAE [facility],[address] [place] [address], [address], [place] [facility] [place] 02/11/2024 13:55:12 02/04/20 24 Allergy Immunotherapy Injections completed QUINN MAE [facility] [address] [facility],[address] [place] [address], [address], [place] [facility] [place] 02/04/2024 13:18:37 01/21/20 24 Allergy Immunotherapy Injections completed QUINN MAE [facility] [address] [facility],[address] [place] [address], [phone], [place] [facility] [place] 01/21/2024 13:29:56 01/05/20 24 Debridement of Mastoid Cavity right completed SARIAH NATION MD 100 [facility],[address], [address], [place] [facility] 01/05/2024 11:26:57 01/05/20 24 Allergy Immunotherapy Injections completed MARGA HARRISON RN 100 [facility],[address], [address], [place] [facility] [place] 01/05/2024 12:01:09 12/17/19 24 Allergy Immunotherapy Injections completed ADRIEL SHEPARD [facility] [address] [place] [address], [address], [place] [facility] 12/17/2023 11:19:30 11/30/19 24 Allergy Immunotherapy Injections completed MARGA HARRISON RN 100 [facility],[address] [place] [address], [address], [place] [facility] [place] 11/30/2023 15:43:46 Appendectomy completed Mony Dailey [place] [facility] 01/05/2024 10:43:00 Breast reduction completed Mony Dailey [place] [facility] 01/05/2024 10:43:07 Imaging Results None recorded. [...] mg tablet 07/15 completed Medicati on ID: [id number] D uration Value: 10 Brand Name: ibuprofe [...] eye drops 01/04 completed Medicati on ID: [id number] D uration Value: 14 Brand Name: Ciloxan Send Method: E-Prescr ibed Sub s Allowed: subs [place] Speci al Instruct ion: 4 drops into right ear BID X 14 days Med icationG enericNa me: Ciloxan Medicati on ID: [id number] D uration Value: 14 Brand Name: Ciloxan [...] mg tablet 12/17 completed Medicati on ID: [id number] D uration Value: 10 Brand Name: amoxicil [...] for pain 01/04 completed Medicati on ID: [id number] D uration Value: 5 Prescri bed By Name: Erin Baeza nd Name: oxycodon e Send Method: E-Prescr ibed Sub s Allowed: subs OK Medic ationGen ericName : oxycodon e Medica tion ID: [id number] D uration Value: 5 Prescri bed By [...] Diagnosis/Indication Diagnosis SNOMED-CT Code Diagnosis ICD10 Code 19124 ADRIEL KORZEC, RMA Allergy 100 [facility],[place] 100 [facility] [place] [address] 03/03/2024 13:52:41 03/03/2024 14:21:57 Perennial allergic rhinitis [id number] J30.89 87208 ADRIEL SHEPARD, A Allergy 100 [facility],[place] [address] [place] [address] 03/10/2024 14:18:28 03/10/2024 14:54:23 Perennial allergic rhinitis 793801189 J30.89 55473 QUINN TU A Allergy 100 [facility], [address] [place] [address] 03/31/2024 15:21:42 03/31/2024 15:25:34 Perennial allergic rhinitis 483671912 J30.89 Health Concerns Section Related Observation LastModified by Organization Detai ls LastModified Time None Recorded Concern Status LastModified by Organization Details LastModified Time None Recorded Payers Encounter Date Sequence Insurance Name Policy Number Policy Felix Covered Member ID Felix Member ID Guarantor Name 03/31/2024 1 [facility] PUBLIC [facility] - [place] ZERO (HMO) [id number] Edeusa Jarod [id number] 1 Edeusa Jarod OBGyn Episode No OBEpisode recorded.
--- OUTSIDE RECORDS SUMMARY | 2024-05-20 09:10 | XMS_ITS | Continuity of Care Document ---
Author Organization [place] [facility], Allergy Address [address] [address] Care Team Providers Care Hydro Generation Supervisor Name Role Phone ACHARYA ADILENE Primary Care Provider Assessment Encounter Date Assessment Date Assessment LastModified by Organization Details LastModified Time 03/10/2024 03/10/2024 Administered By: MONSERRAT Ram Use of Antihistamines: No If yes: Vial Test Change in medications: No If yes ?? Increase in asthma symptoms If yes, inhaler use: Reaction to last injections: No If yes: ?? Allergy Symptoms: Other: ?? Missed 1 week Dose Notes:?? [email or web address] Not available 03/10/2024 14:25:47 Plan of Treatment Reminders Order Date Submit Date Provider Last Modified By Organization Details Last Modified Time Details Appointments [facility]- Allergy f-up 6mon 2023 01:50P [...] Recorded Time Postmast oidectom y complica tion 33080555 Active 2021 Other disorder s followin g mastoide ctomy, right ear; Note: Date Diagnose d: 2 4:39 PM (H95.191 ) Not Available [facility] 4 03:07:21 Tinnitus of right ear 64913283747 08 Active 2022 Tinnitus , right ear; Note: Date Diagnose d: 11/13/2022 3:13 PM (H93.11) Not Available [facility] 4 03:07:22 Sensorin eural hearing loss in left ear 54357462138 109 Active 2021 Sensorin eural hearing loss, unilater al, left ear, with restrict ed hearing on the contrala teral side; Note: Date Diagnose d: 2 4:39 PM (H90.A22 ) Not Available [facility] 4 03:07:20 Otorrhea of right ear 51203168884 05501 Completed 202101/08/2024 Otorrhea , right ear; Note: Date Diagnose d: 2 9:57 AM (H92.11) Otorrh ea, right ear; Note: Date Diagnose d: 06/10/2019 2:45 PM (H92.11) ; Start Date : 06/10/19 Not Available [facility] 4 03:07:20 Allergic rhinitis caused by pollen 36491317 Active 2022 Allergic rhinitis due to pollen; Note: Date Diagnose d: 11/13/2022 3:13 PM (J30.1) Not Available [facility] 4 03:07:22 Partial loss of ear ossicles 60347299 Active 2021 Partial loss of ear ossicles , right ear; Note: Date Diagnose d: 2 9:54 AM (H74.321 ) Not Available [facility] 4 03:07:21 Follow-u p visit Active 2021 Medical surveill ance followin g complete d treatmen t; Note: Date Diagnose d: 04/25/20 22 3:46 PM (Z09) Not Available [facility] 4 03:07:22 Acute pharyngi tis 223950403 Completed 202201/04/2024 Acute pharyngi tis, unspecif ied; Note: Date Diagnose d: 03/19/20 23 9:39 AM (J02.9) Note: Date Diagnose d: 03/19/20 9:39 AM (J02.9) SARIAH NATION MD [address] [place] [address], [place], [address] , [place] [facility] [place] 4 16:30:12 Chronic inflamma tion of mastoid cavity 629772316 Completed 201901/08/2024 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, right ear; Note: Date Diagnose d: 06/10/2019 2:45 PM (H95.111 ) Not Available [facility] 4 03:07:21 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; Note: Date Diagnose d: 06/10/2019 2:42 PM (383.33) Not Available [facility] 4 03:07:22 Perennia l allergic rhinitis 274208228 Active 2023 MARGA HARRISON RN [address] [place] [address], [place], [address] , [place] [facility] [place] 4 15:03:21 Mixed conducti ve and sensorin eural hearing loss of right ear 87660553472 105 Active 2023 SARIAH NATION MD [address] [place] [address], [place], [address] , [place] [facility] [place] 4 16:31:16 Otorrhea of right ear 98805251366 60103 Active 2023 Otorrhea , right ear; Note: Date Diagnose d: 2 9:57 AM (H92.11) Note: Date Diagnose d: 2 9:57 AM (H92.11) Otorrh ea, right ear; Note: Date Diagnose d: 06/10/2019 2:45 PM (H92.11) Note: Date Diagnose d: 06/10/2019 2:45 PM (H92.11) ; Start Date : 06/10/19 SARIAH NATION MD [address] [place] [address], [place], [address] , [place] [facility] [place] 4 11:27:08 Mixed conducti ve and sensorin eural hearing loss of left ear 39520317818 107 Active 2021 Mixed conducti ve and sensorin eural hearing loss, unilater al, left ear with restrict ed hearing on the contrala teral side; Note: Date Diagnose d: 2 4:39 PM (H90.A32 ) Not Available [facility] 4 03:07:21 Problem Notes None recorded. Procedures Surgical History Date Name Laterality Status Provider Name and Address Organization Details Recorded Time 05/13/20 24 Allergy Immunotherapy Injections completed ADRIEL SHEPARD, RMA [address],[place] [address] [place] [address], [address], [place] [facility] 05/13/2024 15:19:24 04/22/20 24 Allergy Immunotherapy Injections completed MARGA HARRISON RN 100 [facility],[address], [address], [place] [facility] 04/22/2024 15:06:00 03/31/20 24 Allergy Immunotherapy Injections completed QUINN MAE Bennett [address] [facility] [address] [place] [address], [address], [place] [facility] 03/31/2024 15:25:04 03/10/20 24 Allergy Immunotherapy Injections completed ADRIEL SHEPARD RMA [address] [place] [address], [address], [facility] - [facility] 03/10/2024 14:25:36 03/03/20 24 Allergy Immunotherapy Injections completed ADRIEL SHEPARD A [address] [place] [address], [address], [facility] [place] 03/03/2024 14:21:21 02/26/20 24 Allergy Immunotherapy Injections completed MARGA HARRISON RN [address] [facility],[address] [place] [address], [address], [place] [facility] [place] 02/26/2024 10:12:39 02/18/20 24 Allergy Immunotherapy Injections completed MARGA HARRISON RN 100 [facility],[address] [place] [address], [address], [place] [facility] 02/18/2024 16:04:15 02/11/20 24 Allergy Immunotherapy Injections completed QUINN MAE [facility] 100 [facility],[address] [place] [address], [address], [place] [facility] [place] 02/11/2024 13:55:12 02/04/20 24 Allergy Immunotherapy Injections completed QUINN MAE [facility] [address] [facility] [place] [address], [address], [place] [facility] [place] 02/04/2024 13:18:37 01/21/20 24 Allergy Immunotherapy Injections completed QUINN MAE [facility] 100 [facility],[address] [place] [address], [address], [place] [facility] [place] 01/21/2024 13:29:56 01/05/20 24 Debridement of Mastoid Cavity right completed SARIAH NATION MD 100 [facility],[address], [address], [place] [facility] [place] 01/05/2024 11:26:57 01/05/20 24 Allergy Immunotherapy Injections completed MARGA HARRISON RN 100 [facility],[address] [place] [address], [address], [place] [facility] [place] 01/05/2024 12:01:09 12/17/19 24 Allergy Immunotherapy Injections completed ADRIEL SHEPARD [facility] [address] [facility] [address] [place] [address], [address], [place] [facility] [place] 12/17/2023 11:19:30 11/30/19 24 Allergy Immunotherapy Injections completed MARGA HARRISON RN 100 [facility],[address] [place] [address], [address], [place] [facility] [place] 11/30/2023 15:43:46 Appendectomy completed Mony Dailey [place] [facility] [place] 01/05/2024 10:43:00 Breast reduction completed Mony Dailey [place] [facility] [place] 01/05/2024 10:43:07 Imaging Results None recorded. Procedure [...] mg tablet 07/15 completed Medicati on ID: [id number] D uration Value: 10 Brand Name: ibuprofe [...] eye drops 01/04 completed Medicati on ID: [id number] D uration Value: 14 Brand Name: Ciloxan Send Method: E-Prescr ibed Sub s Allowed: subs [place] Speci al Instruct ion: 4 drops into right ear BID X 14 days Med icationG enericNa me: Ciloxan Medicati on ID: [id number] D uration Value: 14 Brand Name: Ciloxan [...] mg tablet 12/17 completed Medicati on ID: [id number] D uration Value: 10 Brand Name: amoxicil [...] for pain 01/04 completed Medicati on ID: [id number] D uration Value: 5 Prescri bed By Name: Erin Baeza nd Name: oxycodon e Send Method: E-Prescr ibed Sub s Allowed: subs OK Medic ationGen ericName : oxycodon e Medica tion ID: [id number] D uration Value: 5 Prescri bed By [...] Diagnosis/Indication Diagnosis SNOMED-CT Code Diagnosis ICD10 Code 70667 MONSERRAT RATLIFF Allergy 100 [facility] [address] 02/11/2024 13:48:11 02/11/2024 14:04:04 Perennial allergic rhinitis 136587399 J30.89 [id number] MARGA HARRISON RN Allergy 100 [facility],[address] [place] [address] 02/18/2024 15:56:39 02/18/2024 16:04:43 Perennial allergic rhinitis 929694107 J30.89 [id number] MARGA HARRISON RN Allergy 100 [facility],[address] [place] [address] 02/26/2024 10:03:49 02/26/2024 10:13:06 Perennial allergic rhinitis [id number] J30.89 69874 [facility] Allergy [address] [place] [address],[place] [place] [address] 03/03/2024 13:52:41 03/03/2024 14:21:57 Perennial allergic rhinitis 227353188 J30.89 15753 ADRIEL IRMA, A Allergy 100 [facility],[place] [address] [place] [address] 03/10/2024 14:18:28 03/10/2024 14:54:23 Perennial allergic rhinitis 555387993 J30.89 Health Concerns Section Related Observation LastModified by Organization Detai ls LastModified Time None Recorded Concern Status LastModified by Organization Details LastModified Time None Recorded Payers Encounter Date Sequence Insurance Name Policy Number Policy Felix Covered Member ID Felix Member ID Guarantor Name 03/10/2024 1 [facility] [place] (HMO) [id number] Edeusa Jarod [id number] Edeusa Jarod OBGyn Episode No OBEpisode recorded.
--- OUTSIDE RECORDS SUMMARY | 2024-05-20 09:10 | XMS_ITS | Continuity of Care Document ---
Author Organization [place] - [facility], Allergy Address [address] [address] Care Team Providers Care Steel Melter Name Role Phone ADILENE ACHARYA Primary Care [...] Recorded Time Postmast oidectom y complica tion [id number] Active 2021 Other disorder s followin g mastoide ctomy, right ear; Note: Date Diagnose d: 2 4:39 PM (H95.191 ) Not Available [facility] 4 03:07:21 Tinnitus of right ear [id number] 08 Active 2022 Tinnitus , right ear; Note: Date Diagnose d: 11/13/2022 3:13 PM (H93.11) Not Available [facility] 4 03:07:22 Sensorin eural hearing loss in left ear 91794979075 109 Active 2021 Sensorin eural hearing loss, unilater al, left ear, with restrict ed hearing on the contrala teral side; Note: Date Diagnose d: 2 4:39 PM (H90.A22 ) Not Available [facility] 4 03:07:20 Otorrhea of right ear [id number] 90180 Completed 202101/08/2024 Otorrhea , right ear; Note: Date Diagnose d: 2 9:57 AM (H92.11) Otorrh ea, right ear; Note: Date Diagnose d: 06/10/2019 2:45 PM (H92.11) ; Start Date : 06/10/19 Not Available [facility] 4 03:07:20 Allergic rhinitis caused by pollen 86268006 Active 2022 Allergic rhinitis due to pollen; Note: Date Diagnose d: 11/13/2022 3:13 PM (J30.1) Not Available [facility] 4 03:07:22 Partial loss of ear ossicles 58117812 Active 2021 Partial loss of ear ossicles , right ear; Note: Date Diagnose d: 2 9:54 AM (H74.321 ) Not Available [facility] 4 03:07:21 Follow-u p visit Active 2021 Medical surveill ance followin g complete d treatmen t; Note: Date Diagnose d: 04/25/20 22 3:46 PM (Z09) Not Available [facility] 4 03:07:22 Acute pharyngi tis 034869350 Completed 202201/04/2024 Acute pharyngi tis, unspecif ied; Note: Date Diagnose d: 03/19/20 23 9:39 AM (J02.9) Note: Date Diagnose d: 03/19/20 9:39 AM (J02.9) SARIAH NATION MD [address] [place] [address], [place], [address] , [place] [facility] 4 16:30:12 Chronic inflamma tion of mastoid cavity 841387280 Completed 201901/08/2024 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, right ear; Note: Date Diagnose d: 06/10/2019 2:45 PM (H95.111 ) Not Available [facility] 4 03:07:21 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; Note: Date Diagnose d: 06/10/2019 2:42 PM (383.33) Not Available [facility] 4 03:07:22 Perennia l allergic rhinitis 735754903 Active 2023 MARGA HARRISON RN [address] [address], [place], [address] , [place] [facility] 4 15:03:21 Mixed conducti ve and sensorin eural hearing loss of right ear 51663029606 105 Active 2023 SARIAH NATION MD [address] [place] [address], [place], [address] , [place] [facility] [place] 4 16:31:16 Otorrhea of right ear [id number] 50255 Active 2023 Otorrhea , right ear; Note: Date Diagnose d: 2 9:57 AM (H92.11) Note: Date Diagnose d: 2 9:57 AM (H92.11) Otorrh ea, right ear; Note: Date Diagnose d: 06/10/2019 2:45 PM (H92.11) Note: Date Diagnose d: 06/10/2019 2:45 PM (H92.11) ; Start Date : 06/10/19 SARIAH NATION MD [address] [place] [address],[place] [address], [place], [address] , [place] [facility] 4 11:27:08 Mixed conducti ve and sensorin eural hearing loss of left ear [id number] 107 Active 2021 Mixed conducti ve and sensorin eural hearing loss, unilater al, left ear with restrict ed hearing on the contrala teral side; Note: Date Diagnose d: 2 4:39 PM (H90.A32 ) Not Available [facility] 4 03:07:21 Problem Notes None recorded. Procedures Surgical History Date Name Laterality Status Provider Name and Address Organization Details Recorded Time 05/13/20 24 Allergy Immunotherapy Injections completed ADRIEL SHEPARD, RMA [address] [facility] [address] [place] [address], [phone], [place] - [facility] 05/13/2024 15:19:24 04/22/20 24 Allergy Immunotherapy Injections completed MARGA HARRISON RN 100 [facility],[address] [place] [address], [address], [place] [facility] 04/22/2024 15:06:00 03/31/20 24 Allergy Immunotherapy Injections completed ROSA BOWMAN [facility] [address] [facility] [address] [place] [address], [phone], [facility] - [facility] 03/31/2024 15:25:04 03/10/20 24 Allergy Immunotherapy Injections completed ADRIEL SHEPARD A [address] [facility] [place] [address], [phone], [facility] - [facility] 03/10/2024 14:25:36 03/03/20 24 Allergy Immunotherapy Injections completed ADRIEL SHEPARD A [address] [facility] [place],[address] [place] [address], [phone], [facility] - [facility] [place] 03/03/2024 14:21:21 02/26/20 24 Allergy Immunotherapy Injections completed MARGA HARRISON RN 100 [facility],[address] [place] [address], [phone], [facility] - [facility] [place] 02/26/2024 10:12:39 02/18/20 24 Allergy Immunotherapy Injections completed MARGA HARRISON RN 100 [facility],[address] [place] [address], [phone], [place] [facility] [place] 02/18/2024 16:04:15 02/11/20 24 Allergy Immunotherapy Injections completed ROSA BOWMAN, [facility] [address] [facility] [address] [place] [address], [address], [place] [facility] [place] 02/11/2024 13:55:12 02/04/20 24 Allergy Immunotherapy Injections completed ROSA BOWMAN A [address] [facility] [place] [address], [address], [place] [facility] [place] 02/04/2024 13:18:37 01/21/20 24 Allergy Immunotherapy Injections completed ROSA BOWMAN, [facility] [address] [facility] [address], [place], [address], [place] [facility] [place] 01/21/2024 13:29:56 01/05/20 24 Debridement of Mastoid Cavity right completed SARIAH NATION MD [address] [facility] [place] [address], [address], [place] [facility] [place] 01/05/2024 11:26:57 01/05/20 24 Allergy Immunotherapy Injections completed MARGA HARRISON RN 100 [facility] [place],[address], [address], [place] [facility] [place] 01/05/2024 12:01:09 12/17/19 24 Allergy Immunotherapy Injections completed ADRIEL SHEPARD, [facility] [address] [facility] [address] [place] [address], [address], [place] [facility] [place] 12/17/2023 11:19:30 11/30/19 24 Allergy Immunotherapy Injections completed MARGA HARRISON RN 100 [facility] [place],[address] [place] [address], [address], [place] [facility] [place] 11/30/2023 15:43:46 Appendectomy completed Mony Dailey [place] - [facility] [place] 01/05/2024 10:43:00 Breast reduction completed Mony Dailey [place] - [facility] [place] 01/05/2024 10:43:07 Imaging Results None recorded. Procedure [...] mg tablet 07/15 completed Medicati on ID: [id number] D uration Value: 10 Brand Name: ibuprofe [...] eye drops 01/04 completed Medicati on ID: [id number] D uration Value: 14 Brand Name: Ciloxan Send Method: E-Prescr ibed Sub s Allowed: subs [place] Speci al Instruct ion: 4 drops into right ear BID X 14 days Med icationG enericNa me: Ciloxan Medicati on ID: [id number] D uration Value: 14 Brand Name: Ciloxan [...] mg tablet 12/17 completed Medicati on ID: [id number] D uration Value: 10 Brand Name: amoxicil [...] for pain 01/04 completed Medicati on ID: [id number] D uration Value: 5 Prescri bed By Name: Erin Baeza nd Name: oxycodon e Send Method: E-Prescr ibed Sub s Allowed: subs OK Medic ationGen ericName : oxycodon e Medica tion ID: [id number] D uration Value: 5 Prescri bed By [...] Diagnosis/Indication Diagnosis SNOMED-CT Code Diagnosis ICD10 Code 70301 MONSERRAT RATLIFF Allergy 100 [facility] 100 [facility] AMAL[place] OROZCO [address] 02/04/2024 12:50:27 02/04/2024 13:52:32 Perennial allergic rhinitis [id number] J30.89 [id number] ROSA TU, A Allergy 100 [facility],[place] 100 [place] [address] 02/11/2024 13:48:11 02/11/2024 14:04:04 Perennial allergic rhinitis 881254382 J30.89 26407 MARGA HARRISON RN Allergy 100 [facility],[place] [address] [place] [address] 02/18/2024 15:56:39 02/18/2024 16:04:43 Perennial allergic rhinitis 755475876 J30.89 [id number] MARGA HARRISON RN Allergy 100 [facility],[place] [address] [place] [address] 02/26/2024 10:03:49 02/26/2024 10:13:06 Perennial allergic rhinitis 485489236 J30.89 82797 ADRIEL IRMAYamila, RMA Allergy 100 [facility],[place] [address] [place] [address] 03/03/2024 13:52:41 03/03/2024 14:21:57 Perennial allergic rhinitis 958244710 J30.89 Health Concerns Section Related Observation LastModified by Organization Detai ls LastModified Time None Recorded Concern Status LastModified by Organization Details LastModified Time None Recorded Payers Encounter Date Sequence Insurance Name Policy Number Policy Felix Covered Member ID Felix Member ID Guarantor Name 03/03/2024 1 [facility] PUBLIC PLANS [facility] - DIRECT - [place] [employer] (HMO) [id number] Edeusa Jarod [id number] 1 Edeusa Jarod OBGyn Episode No OBEpisode recorded.
--- OUTSIDE RECORDS SUMMARY | 2024-05-20 09:10 | XMS_ITS | Continuity of Care Document ---
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 Name Role Phone ADILENE ACHARYA Primary Care [...] Details Last Modified Time Details Appointments [facility]- Allergy f-up 6mon 2023 01:50P [...] Recorded Time Postmast oidectom y complica tion 24337511 Active 2021 Other disorder s followin g mastoide ctomy, right ear; Note: Date Diagnose d: 2 4:39 PM (H95.191 ) Not Available [facility] 4 03:07:21 Tinnitus of right ear 87960574219 08 Active 2022 Tinnitus , right ear; Note: Date Diagnose d: 11/13/2022 3:13 PM (H93.11) Not Available [facility] 4 03:07:22 Sensorin eural hearing loss in left ear 46455467179 109 Active 2021 Sensorin eural hearing loss, unilater al, left ear, with restrict ed hearing on the contrala teral side; Note: Date Diagnose d: 2 4:39 PM (H90.A22 ) Not Available [facility] 4 03:07:20 Otorrhea of right ear [id number] 68825 Completed 202101/08/2024 Otorrhea , right ear; Note: Date Diagnose d: 2 9:57 AM (H92.11) Otorrh ea, right ear; Note: Date Diagnose d: 06/10/2019 2:45 PM (H92.11) ; Start Date : 06/10/19 20 Not Available [facility] 4 03:07:20 Allergic rhinitis caused by pollen 15797775 Active 2022 Allergic rhinitis due to pollen; Note: Date Diagnose d: 11/13/2022 3:13 PM (J30.1) Not Available [facility] 4 03:07:22 Partial loss of ear ossicles 63939574 Active 2021 Partial loss of ear ossicles , right ear; Note: Date Diagnose d: 2 9:54 AM (H74.321 ) Not Available [facility] 4 03:07:21 Follow-u p visit Active 2021 Medical surveill ance followin g complete d treatmen t; Note: Date Diagnose d: 04/25/20 22 3:46 PM (Z09) Not Available [facility] 4 03:07:22 Acute pharyngi tis 177769699 Completed 202201/04/2024 Acute pharyngi tis, unspecif ied; Note: Date Diagnose d: 03/19/20 23 9:39 AM (J02.9) Note: Date Diagnose d: 03/19/20 23 9:39 AM (J02.9) SARIAH NATION MD [address] [place] [address], [facility] AMALIA tracey, [address] 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; Note: Date Diagnose d: 06/10/2019 2:42 PM (383.33) Not Available [facility] 4 03:07:22 Perennia l allergic rhinitis 721285451 Active 2023 MARGA HARRISON RN 100 [facility],[place] [address], [place], [address] , [facility] - [facility] 4 15:03:21 Mixed conducti ve and sensorin eural hearing loss of right ear 67296051928 105 Active 2023 SARIAH NATION MD 100 [facility],[place] [address], [place], [address] , [facility] - [facility] 4 16:31:16 Otorrhea of right ear 46056977804 15594 Active 2023 Otorrhea , right ear; Note: Date Diagnose d: 2 9:57 AM (H92.11) Note: Date Diagnose d: 2 9:57 AM (H92.11) Otorrh ea, right ear; Note: Date Diagnose d: 06/10/2019 2:45 PM (H92.11) Note: Date Diagnose d: 06/10/2019 2:45 PM (H92.11) ; Start Date : 06/10/19 SARIAH NATION MD 100 [facility],[place] [address], [place], [address] , [facility] - [facility] 4 11:27:08 Mixed conducti ve and sensorin eural hearing loss of left ear 29362133060 107 Active 2021 Mixed conducti ve and sensorin eural hearing loss, unilater al, left ear with restrict ed hearing on the contrala teral side; Note: Date Diagnose d: 2 4:39 PM (H90.A32 ) Not Available [facility] 4 03:07:21 Problem Notes None recorded. Procedures Surgical History Date Name Laterality Status Provider Name and Address Organization Details Recorded Time 05/13/20 24 Allergy Immunotherapy Injections completed MONSERRAT VELAZQUEZ 100 [facility],[place] [address], [place], [address], [place] [facility] [place] 05/13/2024 15:19:24 04/22/20 24 Allergy Immunotherapy Injections completed MARGA HARRISON RN 100 [facility] [place],[address] [place] [address], [address], [place] [facility] [place] 04/22/2024 15:06:00 03/31/20 24 Allergy Immunotherapy Injections completed MONSERRAT RATLIFF [address] [facility],[place] [address], [place], [address], [place] [facility] [place] 03/31/2024 15:25:04 03/10/20 24 Allergy Immunotherapy Injections completed ADRIEL SHEPARD RMBennett [address] [facility],[address] [place] [address], [address], [place] [facility] [place] 03/10/2024 14:25:36 03/03/20 24 Allergy Immunotherapy Injections completed MONSERRAT VELAZQUEZ [address] [facility],[address] [place] [address], [address], [place] [facility] [place] 03/03/2024 14:21:21 02/26/20 24 Allergy Immunotherapy Injections completed MARGA HARRISON RN 100 [facility] [place],[address] [address] [place] [address], [address], [place] [facility] [place] 02/26/2024 10:12:39 02/18/20 24 Allergy Immunotherapy Injections completed MARGA HARRISON RN 100 [facility] [place],[address] [address] [place] [address], [address], [place] [facility] [place] 02/18/2024 16:04:15 02/11/20 24 Allergy Immunotherapy Injections completed MONSERRAT RATLIFF [address] [facility] [address], [place], [address], [place] [facility] [place] 02/11/2024 13:55:12 02/04/20 24 Allergy Immunotherapy Injections completed MONSERRAT RATLIFF [address] [facility] [address],[place] [address], [place], [address], [place] [facility] [place] 02/04/2024 13:18:37 01/21/20 24 Allergy Immunotherapy Injections completed MONSERRAT RATLIFF [address], [address], [facility] - [facility] [place] 01/21/2024 13:29:56 01/05/20 24 Debridement of Mastoid Cavity right completed SARIAH NATION MD 100 [facility],[address], [address], [facility] - [facility] 01/05/2024 11:26:57 01/05/20 24 Allergy Immunotherapy Injections completed MARGA HARRISON RN 100 [facility],[address], [address], [facility] - [facility] 01/05/2024 12:01:09 12/17/19 24 Allergy Immunotherapy Injections completed MONSERRAT VELAZQUEZ 100 [facility],[address], [address], [facility] - [facility] 12/17/2023 11:19:30 11/30/19 24 Allergy Immunotherapy Injections completed MARGA HARRISON RN 100 [facility],[address], [phone], [facility] - [facility] 11/30/2023 15:43:46 Appendectomy completed Mony Dailey [place] - [facility] 01/05/2024 10:43:00 Breast reduction completed Mony Dailey [place] - [facility] 01/05/2024 10:43:07 Imaging Results None recorded. [...] mg tablet 07/15 completed Medicati on ID: [id number] D uration Value: 10 Brand Name: ibuprofe [...] eye drops 01/04 completed Medicati on ID: [id number] D uration Value: 14 Brand Name: Ciloxan Send Method: E-Prescr ibed Sub s Allowed: subs [place] Speci al Instruct ion: 4 drops into right ear BID X 14 days Med icationG enericNa me: Ciloxan Medicati on ID: [id number] D uration Value: 14 Brand Name: Ciloxan [...] mg tablet 12/17 completed Medicati on ID: [id number] D uration Value: 10 Brand Name: amoxicil [...] for pain 01/04 completed Medicati on ID: [id number] D uration Value: 5 Prescri bed By Name: Erin Baeza nd Name: oxycodon e Send Method: E-Prescr ibed Sub s Allowed: subs OK Medic ationGen ericName : oxycodon e Medica tion ID: [id number] D uration Value: 5 Prescri bed By [...] Diagnosis/Indication Diagnosis SNOMED-CT Code Diagnosis ICD10 Code 11025 MONSERRAT RATLIFF Allergy [address] [place] [address] 02/04/2024 12:50:27 02/04/2024 13:52:32 Perennial allergic rhinitis [id number] J30.89 19446 QUINN MAE Bennett Allergy [address] [place] [address], [place] [address] 02/11/2024 13:48:11 02/11/2024 14:04:04 Perennial allergic rhinitis 944043292 J30.89 [id number] MARGA HARRISON RN Allergy [address] [place] [address] it 100 [place] [address] 02/18/2024 15:56:39 02/18/2024 16:04:43 Perennial allergic rhinitis 056567080 J30.89 93010 MARGA HARRISON RN Allergy [address] [place] [address] PAM, [place] [address] 02/26/2024 10:03:49 02/26/2024 10:13:06 Perennial allergic rhinitis 449269972 J30.89 Health Concerns Section Related Observation LastModified by Organization Detai ls LastModified Time None Recorded Concern Status LastModified by Organization Details LastModified Time None Recorded Payers Encounter Date Sequence Insurance Name Policy Number Policy Felix Covered Member ID Felix Member ID Guarantor Name 02/26/2024 1 [facility] PUBLIC PL[facility] DIRECT - [place] ZERO (HMO) [id number] Edeusa Jarod [id number] Edeusa Jarod OBGyn Episode No OBEpisode recorded.
--- OUTSIDE RECORDS SUMMARY | 2024-05-20 09:10 | XMS_ITS | Continuity of Care Document ---
Author Organization [place] [facility], Allergy Address [address] [address] Care Team Providers Care Senior Compliance Officer Name Role Phone ADILENE ACHARYA Primary Care [...] Modified Time Details Appointments [facility]- Allergy f-up 6mon 2023 01:50P M SARIAH [...] Recorded Time Postmast oidectom y complica tion [id number] Active 2021 Other disorder s followin g mastoide ctomy, right ear; Note: Date Diagnose d: 2 4:39 PM (H95.191 ) Not Available [facility] 4 03:07:21 Tinnitus of right ear [id number] 08 Active 2022 Tinnitus , right ear; Note: Date Diagnose d: 11/13/2022 3:13 PM (H93.11) Not Available [facility] 4 03:07:22 Sensorin eural hearing loss in left ear 77874980771 109 Active 2021 Sensorin eural hearing loss, unilater al, left ear, with restrict ed hearing on the contrala teral side; Note: Date Diagnose d: 2 4:39 PM (H90.A22 ) Not Available [facility] 4 03:07:20 Otorrhea of right ear [id number] 76138 Completed 202101/08/2024 Otorrhea , right ear; Note: Date Diagnose d: 2 9:57 AM (H92.11) Otorrh ea, right ear; Note: Date Diagnose d: 06/10/2019 2:45 PM (H92.11) ; Start Date : 06/10/19 Not Available [facility] 4 03:07:20 Allergic rhinitis caused by pollen 12945130 Active 2022 Allergic rhinitis due to pollen; Note: Date Diagnose d: 11/13/2022 3:13 PM (J30.1) Not Available [facility] 4 03:07:22 Partial loss of ear ossicles 25664414 Active 2021 Partial loss of ear ossicles , right ear; Note: Date Diagnose d: 2 9:54 AM (H74.321 ) Not Available [facility] 4 03:07:21 Follow-u p visit Active 2021 Medical surveill ance followin g complete d treatmen t; Note: Date Diagnose d: 04/25/20 22 3:46 PM (Z09) Not Available [facility] 4 03:07:22 Acute pharyngi tis 039994995 Completed 202201/04/2024 Acute pharyngi tis, unspecif ied; Note: Date Diagnose d: 03/19/20 9:39 AM (J02.9) Note: Date Diagnose d: 03/19/20 9:39 AM (J02.9) SARIAH NATION MD 100 [facility],[place] [address], [place], [address] , [place] [facility] 4 16:30:12 Chronic inflamma tion of mastoid cavity 006952446 Completed 201901/08/2024 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, right ear; Note: Date Diagnose d: 06/10/2019 2:45 PM (H95.111 ) Not Available [facility] 4 03:07:21 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; Note: Date Diagnose d: 06/10/2019 2:42 PM (383.33) Not Available [facility] 4 03:07:22 Perennia l allergic rhinitis 179844947 Active 2023 MARGA HARRISON RN [address] [place] [address], [place], [address] , [place] - [facility] 4 15:03:21 Mixed conducti ve and sensorin eural hearing loss of right ear 83760087337 105 Active 2023 SARIAH NATION MD [address] [place] [address], [place], [address] , [place] [facility] 4 16:31:16 Otorrhea of right ear [id number] 54512 Active 2023 Otorrhea , right ear; Note: Date Diagnose d: 2 9:57 AM (H92.11) Note: Date Diagnose d: 2 9:57 AM (H92.11) Otorrh ea, right ear; Note: Date Diagnose d: 06/10/2019 2:45 PM (H92.11) Note: Date Diagnose d: 06/10/2019 2:45 PM (H92.11) ; Start Date : 06/10/19 SARIAH NATION MD 100 [facility],[place] [address], [place], [address] , [place] - [facility] 4 11:27:08 Mixed conducti ve and sensorin eural hearing loss of left ear 42131889355 107 Active 2021 Mixed conducti ve and sensorin eural hearing loss, unilater al, left ear with restrict ed hearing on the contrala teral side; Note: Date Diagnose d: 2 4:39 PM (H90.A32 ) Not Available [facility] 4 03:07:21 Problem Notes None recorded. Procedures Surgical History Date Name Laterality Status Provider Name and Address Organization Details Recorded Time 05/13/20 24 Allergy Immunotherapy Injections completed ADRIEL SHEPARD, RMA [address] [facility] [address] [address] [place] [address], [phone], [place] - [facility] 05/13/2024 15:19:24 04/22/20 24 Allergy Immunotherapy Injections completed MARGA HARRISON RN 100 [facility],[address], [address], [place] [facility] 04/22/2024 15:06:00 03/31/20 24 Allergy Immunotherapy Injections completed QUINN MAE Bennett [address] [address],[place] [address] [place] [address], [phone], [place] [facility] 03/31/2024 15:25:04 03/10/20 24 Allergy Immunotherapy Injections completed ADRIEL SHEPARD RMA [address] [facility] [address],[place] [address] [place] [address], [phone], [place] [facility] 03/10/2024 14:25:36 03/03/20 24 Allergy Immunotherapy Injections completed ADRIEL SHEPARD A [address] [facility] [address],[place] [address] [place] [address], [phone], [place] [facility] 03/03/2024 14:21:21 02/26/20 24 Allergy Immunotherapy Injections completed MARGA HARRISON RN 100 [facility],[place] [address] [place] [address], [address], [place] [facility] 02/26/2024 10:12:39 02/18/20 24 Allergy Immunotherapy Injections completed MARGA HARRISON RN [facility] [place] [address] [place] [address], [phone], [place] [facility] 02/18/2024 16:04:15 02/11/20 24 Allergy Immunotherapy Injections completed QUINN MAE [facility] [address] [facility] [address] [place] [address], [address], [place] [facility] 02/11/2024 13:55:12 02/04/20 24 Allergy Immunotherapy Injections completed QUINN MAE [facility] [place] [address] [place] [address], [address], [place] [facility] 02/04/2024 13:18:37 01/21/20 24 Allergy Immunotherapy Injections completed QUINN MAE [facility] [place] [facility], [place], [address], [place] [facility] 01/21/2024 13:29:56 01/05/20 24 Debridement of Mastoid Cavity right completed SARIAH NATION MD 100 [facility],[address], [address], [place] [facility] 01/05/2024 11:26:57 01/05/20 24 Allergy Immunotherapy Injections completed MARGA HARRISON RN [address] [facility] [address], [address], [place] [facility] 01/05/2024 12:01:09 12/17/19 24 Allergy Immunotherapy Injections completed MONSERRAT VELAZQUEZ [address] [facility] [address],[place] [address] [place] [address], [phone], [place] [facility] 12/17/2023 11:19:30 11/30/19 24 Allergy Immunotherapy Injections completed MARGA HARRISON RN 100 [facility],[place] [address] [place] [address], [address], [place] [facility] 11/30/2023 15:43:46 Appendectomy completed Mony Dailey [place] - [facility] 01/05/2024 10:43:00 Breast reduction completed Mony Dailey [place] [facility] 01/05/2024 10:43:07 Imaging Results None recorded. [...] mg tablet 07/15 completed Medicati on ID: [id number] D uration Value: 10 Brand Name: ibuprofe [...] eye drops 01/04 completed Medicati on ID: [id number] D uration Value: 14 Brand Name: Ciloxan Send Method: E-Prescr ibed Sub s Allowed: subs OK Speci al Instruct ion: 4 drops into right ear BID X 14 days Med icationG enericNa me: Ciloxan Medicati on ID: [id number] D uration Value: 14 Brand Name: Ciloxan [...] mg tablet 12/17 completed Medicati on ID: [id number] D uration Value: 10 Brand Name: amoxicil [...] for pain 01/04 completed Medicati on ID: [id number] D uration Value: 5 Prescri bed By Name: Erin Baeza nd Name: oxycodon e Send Method: E-Prescr ibed Sub s Allowed: subs OK Medic ationGen ericName : oxycodon e Medica tion ID: [id number] D uration Value: 5 Prescri bed By [...] Diagnosis/Indication Diagnosis SNOMED-CT Code Diagnosis ICD10 Code 19963 MONSERRAT RATLIFF Allergy 100 [facility] 100 [facility] AMALIA OROZCO [address] 03/31/2024 15:21:42 03/31/2024 15:25:34 Perennial allergic rhinitis [id number] J30.89 [id number] MARGA HARRISON RN Allergy [address] [place] [address], [place] [address] 04/22/2024 14:47:50 04/22/2024 15:06:28 Perennial allergic rhinitis [id number] J30.89 Health Concerns Section Related Observation LastModified by Organization Detai ls LastModified Time None Recorded Concern Status LastModified by Organization Details LastModified Time None Recorded Payers Encounter Date Sequence Insurance Name Policy Number Policy Felix Covered Member ID Felix Member ID Guarantor Name 04/22/2024 1 [facility] PUBLIC PLANS [facility] [place] (HMO) [id number] Edeusa Jarod [id number] 1 Edeusa Jarod OBGyn Episode No OBEpisode recorded.
== END 2024-05-20 09:08 | disposition home or self-care (01) ==
LOC: HO.MAMMO 09:07
PROVIDERS: PCP Student in an Organized Health Care Education/Training Program; Visit Provider Student in an Organized Health Care Education/Training Program
DX: Z12.31 Encounter for screening mammogram for malignant neoplasm of breast (principal)
CPT/HCPCS: 77063; 77067

== ENCOUNTER 2024-12-02 08:46 | Outpatient (REF) | payer BC, SELFPAY ==
--- NOTE | ~2024-12-02 | US_ITS ---
CLINICAL HISTORY: MASS OF RIGHT ARM - ABOVE ELBOW Ultrasound extremity nonvascular right Comparison: None provided Findings: In the region of the patient's palpable abnormality there is a well-circumscribed homogeneously isoechoic mass measuring 2.9 x 3.1 x 1.5 cm that appears most consistent with a lipoma. No increased vascularity. IMPRESSION: 1. Palpable abnormality appears most consistent with lipoma. This document has been electronically signed by: Carly Mcrae MD on 12/03/2024 08:26:04
--- OUTSIDE RECORDS SUMMARY | 2024-12-02 09:02 | XMS_ITS | Clinical Summary ---
Author Organization [facility] Address [address] [place] [address] Care Team Providers Care Sheep Herder Name Role Phone JoshuadanyaKelly ty CONDUCTOR/BRAKEMAN-C Primary Care Provider Cheri plascencia Source Comments PLEASE NOTE, if this patient is a minor, it may be UNLAWFUL to discuss sensitive information that is contained in these records (such as FAMILY PLANNING, MENTAL HEALTH or SUBSTANCE ABUSE) with the minor patient's parent or other person without the patient's specific authorization.[facility] Medications folic acid 0.8 mg cap Take 1 Caplet by mouth once daily 08/03/2017 Active escitalopram oxalate (LEXAPRO) 10 mg tablet TAKE 1/2 TABLET BY MOUTH ONCE DAILY FOR 7 DAYS, THEN TAKE 1 TABLET BY MOUTH ONCE DAILY 04/18/2019 Active Active Problems Problem Noted Date Diagnosed Date Body mass index 30+ - obesity 08/03/2017 FH: Diabetes mellitus 08/03/2017 Immunizations Immunization Administration Dates Next Due Flu, Preservative Free 03/10/2018,08/03/2017 TDAP 08/03/2017 Family History Medical History Relation Name Comments Diabetes Father Hypertension Father Stroke Father Thyroid Disease Mother Relation Name Status Comments Father Mother Social History Tobacco Use Types Packs/Day Years Used Date Smoking Tobacco: Never Assessed Social Connections Answer Date Recorded Social Connections and Isolation 0 08/01/2020 Financial Resource Strain Answer Date R ecorded Financial Resource Strain 0 2020 Stress Answer Date Recorded Stress 0 08/01/2020 Physical Activity Answer Date Recorded Physical Activity 0 08/01/2020 Food Insecurity Answer Date Recorded Food 0 08/01/2020 Transportation Needs Answer Date Record ed Transportation 0 08/01/2020 Housing Stability Answer Date Recorded Housing 0 08/01/2020 Safety and Environment Answer Date Alexander rded Safety 0 08/01/2020 Utilities Answer Date Recorded Utilities 0 08/01/2020 Employment Answer Date Recorded Employment 0 08/01/2020 Comments Unknown Sex and Gender Information Value Date Recorded Sex Assigned at Not on file Legal Sex Female 11:21 PM PST Gender Identity Not on file Sexual Orientation Not on file Last Filed Vital Signs Vital Sign Reading Time Taken Comments Blood Pressure 110/73 05/11/2018 8:28 AM EST Pulse 70 05/11/2018 8:28 AM EST Temperature 36.5 C (97.7 F) 05/11/2018 8:28 AM EST Respiratory Rate 16 05/11/2018 8:28 AM EST Oxygen Saturation 99% 05/11/2018 8:28 AM EST Inhaled Oxygen Concentration - - Weight 101.6 kg (224 lb) 05/11/2018 8:28 AM EST Height 175.3 cm (5' 9 ) 05/11/2018 8:28 AM EST Body Mass Index 33.08 05/11/2018 8:28 AM EST Plan of Treatment Not on file Care Teams Sheep Herder Relationship Specialty Start Date End Date Kelly Kirby, CONDUCTOR/BRAKEMAN-C PCP - General 08/10/20
== END 2024-12-02 08:47 | disposition home or self-care (01) ==
LOC: HO.HMGCX 08:46
PROVIDERS: PCP Student in an Organized Health Care Education/Training Program; Visit Provider Student in an Organized Health Care Education/Training Program
DX: R22.31 Localized swelling, mass and lump, right upper limb (principal)
CPT/HCPCS: 76882

== ENCOUNTER → 2024-12-02 08:47 | Outpatient (BNV) | payer BC, SELFPAY | PROVIDERS: PCP Student in an Organized Health Care Education/Training Program; Visit Provider Radiology Diagnostic Radiology | DX: R22.31 Localized swelling, mass and lump, right upper limb (principal) | CPT/HCPCS: 76882 ==

== ENCOUNTER 2024-12-15 10:59 | Outpatient (REF) | payer BC, SELFPAY ==
--- OUTSIDE RECORDS SUMMARY | 2024-12-15 11:42 | XMS_ITS | Referral Summary ---
Author Organization [facility] Address [address] [place] [address] Care Team Providers Care Oil Mixer Name Role Phone Savannah Segovia Primary Care Provider Encounters Date Type Department Care Team Description 11/24/2024 Documentation [facility] IVF [address] [place] [address] Cellophaner: Odilon Tenorio MD 11/02/2024 10:00 AM EDT Evaluation [facility] [address] [place] [address] Cellophaner: Odilon Tenorio MD Turner, Natasha R., MS Infertility, female 10/27/2024 4:30 PM EDT Follow-Up [facility] [address] [place] [address] Cellophaner: Odilon Tenorio MD Infertility, female (Primary Dx) 10/26/2024 Documentation [facility] [address] [place] [address] Cellophaner: Mayra Shaw RN 10/11/2024 Documentation [facility] [address] [place] [address] Cellophaner: Genie Kraft RN 10/05/2024 Telephone [facility] [address] [place] [address] Cellophaner: Genie Kraft RN 10/04/2024 Telephone [facility] [address] [place] [address] Cellophaner: Odilon Tenorio MD 10/04/2024 myChart Message [facility] [address] [place] [address] Cellophaner: Jasmyn Santana RN Cycle Day 1 09/29/2024 Documentation [facility] [address] [place] [address] Cellophaner: Genie Kraft RN 09/29/2024 Refill [facility] [address] [place] [address] Cellophaner: Odilon Tenorio MD 09/29/2024 Orders Only [facility] [address] [place] [address] Cellophaner: Genie Kraft RN Infertility, female (Primary Dx) 09/29/2024 2:30 PM EDT Follow-Up [facility] [address] [place] [address] Cellophaner: Odilon Tenorio MD Infertility, female (Primary Dx) 09/19/2024 Telephone [facility] [address] [place] [address] Cellophaner: Angelica Omalley [place] [employer] from Last 3 Months Allergies No known active allergies Medications levothyroxine 50 mcg/mL solution 4 Active tirzepatide (MOUNJARO) 7.5 mg/0.5 mL pen injector Inject 7.5 mg under the skin every 7 days. Active clomiPHENE (CLOMID) 50 mg tabletIndicatio ns:Infertility, female Take 2 tablets (100 mg total) by mouth daily for 5 days when directed. 10 tablet 10/04/2024 5:25 PM EDT Active Additional Information Patient not taking.Reported on 10/27/2024 Active Problems Problem Noted Date Diagnosed Date Infertility, female 09/29/2024 Mixed conductive and sensori neural hearing loss of right ear with restricted hearing of left ear 08/16/2020 Hearing loss of left ear 08/16/2020 Social History Tobacco Use Types Packs/Day Years Used Date Smoking Tobacco: Never Smokeless Tobacco: Never Tobacco Cessation:Counseling Given: Not Answered Alcohol Use Standard Drinks/Week Comments Yes 0 (1 standard drink = 0.6 oz pur e alcohol) Comments No Sex and Gender Information Value Date Recorded Sex Assigned at Female 12/31/2021 4:46 PM EDT Legal Sex Female 2:36 PM EST Gender Identity Female 12/31/2021 4:46 PM EDT Sexual Orientation Straight 12/31/2021 4: 46 PM EDT Last Filed Vital Signs Vital Sign Reading Time Taken Comments Blood Pressure 115/70 10/27/2024 4:23 PM EDT Pulse 68 07/03/2020 9:52 AM EST Temperature - - Respiratory Rate - - Oxygen Saturation - - Inhaled Oxygen Concentration - - Weight 92.6 kg (204 lb 3.2 oz) 10/27/2024 4:23 P M EDT Height 182.9 cm (6') 07/03/2020 9:52 AM EST Body Mass Index 27.69 07/03/2020 9:52 AM EST Plan of Treatment Not on file Procedures * Due to [place] state law, this organization might not be sharing negative HIV tests. Procedure Name Priority Date/Time Associated Diagnosis Comments ESTRADIOL Routine 10/03/2024 10:02 AM EDT Infertility, female HCG, QUANTITATIVE, Routine 10/03/2024 10:02 AM EDT Infertility, female FOLLICLE STIMULATING HORMONE Routine 10/03/2024 10:02 AM EDT Infertility, female CHLAMYDIA/NEISSERIA GONORRHEA RNA Routine 08/11/2024 9:49 AM EST Procreation management investigation and testing from Last 3 Months or Most Recently Relevant to Health Maintenance Results * Due to [place] state law, this organization might not be sharing negative HIV tests. * Estradiol (10/03/2024 10:02 AM EDT) Estradiol 20.0 See Reference Range Comment pg/mL 10/03/2024 12:38 PM EDT [facility] Comment: Early-Follicular Phase: 20.5-62.8 pg/mL Mid-Follicular Phase: 26.0-79.8 pg/mL Late-Follicular Phase: 49.5-233.0 pg/mL Ovulatory Phase: 60.4-602.0 pg/mL Early-Luteal Phase: 51.1-179.0 pg/mL Mid-Luteal Phase: 66.5-305.0 pg/mL Late-Luteal Phase: 30.2-222.0 pg/mL Postmenopausal: <5.0-40.0 pg/mL Blood Structure of peripheral vein / Unknown Venipuncture / Unknown 10/03/2024 10:02 AM EDT 10/03/2024 10:44 AM EDT us Odilon Molina MD LAB BLOOD ORDERABLES Final Resu lt [facility] [address] [place] [address], * hCG, Quantitative, (10/03/2024 10:02 AM EDT) HCG Quantitative <1.0 <=4.9 mIU/mL 10/03/2024 11:47 AM EDT [facility] Comment: hCG >= 5.0 mIU/mL is generally indicative of . Post menopausal ref range < 8.2 mIU/mL Or Rn hCG ranges during normal . Approximate Gestational age Approximate hCG range (Post conception weeks) mIU/mL 3 5.4-72 4 10.2-708 5 217-8,245 6 152-32,177 7 4,059-153,767 8 31,366-149,094 9 59,109-135,901 10 44,186-170,409 12 27,107-201,615 Blood Structure of peripheral vein / Unknown Venipuncture / Unknown 10/03/2024 10:02 AM EDT 10/03/2024 10:44 AM EDT Odilon Molina MD LAB BLOOD ORDERABLES Final Resu lt Performing Organization Address City/[facility]/ZIP Co de Phone Number [facility] [address] [place] [address], [place] * Follicle Stimulating Hormone (10/03/2024 10:02 AM EDT) FSH 16.8 See Reference Range Comment mIU/mL 10/03/2024 12:38 PM EDT [facility] Comment: Follicular 3.5-12.5 mIU/mL Ovulatory 4.7-21.5 mIU/mL Luteal 1.7-7.7 mIU/mL Post-menopausal 25.8-134.8 mIU/mL Blood Structure of peripheral vein / Unknown Venipuncture / Unknown 10/03/2024 10:02 AM EDT 10/03/2024 10:44 AM EDT Odilon Molina MD LAB BLOOD ORDERABLES Final Resu lt Performing Organization Address City/[facility]/ZIP Co de Phone Number [facility] [address] [place] [address], [place] * Chlamydia/Neisseria gonorrhoeae RNA (08/11/2024 9:49 AM EST) Chlamydia trachomatis RNA, TMA NOT DETECTED NOT DETECTED 08/12/2024 5:07 AM EST [facility] Neisseria Gonorrhoeae RNA, TMA NOT DETECTED NOT DETECTED 08/12/2024 5:07 AM EST [facility] Comment: The analytical performance characteristics of this assay, when used to test SurePath(TM) specimens have been determined by [employer] The modifications have not been cleared or approved by the FDA. This assay has been validated pursuant to the CLIA regulations and is used for clinical purposes. For additional information, please refer to https://education.[employer]/faq/VKO299 (This link is being provided for information/ educational purposes only.) Urine Voided urine specimen / Unknown Non-Blood Collection / Unknown 08/11/2024 9:49 AM EST 08/11/2024 10:48 AM EST [facility] - 08/12/2024 5:07 AM EST [facility] Received Date:[id number] Mackenzie Golden NP LAB URINE ORDERABLES Fin al Result [facility] [place] [address], [place] [address], [facility] [address], [place] [address], from Last 3 Months or Most Recently Relevant to Health Maintenance [facility] HS[facility]FREE [facility]ARE [facility] PPO/EPO Advance Directives Healthcare Agents on File Name Relationship Healthcare Agent Relationshi p Communication Alvaro Jarod Spouse Health Care Agent Care Teams Oil Mixer Relationship Specialty Start Date End Date Savannah Segovia [address] [place] [id number] PCP - General 08/11/24
--- OUTSIDE RECORDS SUMMARY | 2024-12-15 11:42 | XMS_ITS | Data Portability ---
Author Organization [place] - [facility], Allergy Address [address] [place] [address] Care Team Providers Care Director Of Estate Name Role Phone LIBIA CLAROS Primary Care Provider Assessment Encounter Date Assessment Date Assessment LastModified by Organization Details LastModified Time 10/25/2024 10/25/2024 Visit With: Marga Harrison RN Use of Antihistamines: No If yes: Vial Test Change in medications: No If yes Increase in asthma symptoms No Asthma Hx If yes, inhaler use: Reaction to last injections: No If yes: Allergy Symptoms: Other: Missed: Dose Aware of Vial Test Yes Notes: [email or web address] Not available 10/25/2024 11:13:56 11/02/2024 11/02/2024 Visit With: Rosa Bowman Use of Antihistamines: Yes If yes: Vial Test Change in medications: No If yes Increase in asthma symptoms If yes, inhaler use: Reaction to last injections: No If yes: Allergy Symptoms: Other: Missed: Dose Aware of Vial Test Notes:pt was taking allergy meds [email or web address] Not available 11/02/2024 16:22:10 11/16/2024 11/16/2024 Visit With: Rosa Bowman Use of Antihistamines: No If yes: Vial Test Change in medications: No If yes Increase in asthma symptoms If yes, inhaler use: Reaction to last injections: No If yes: Allergy Symptoms: Other: Missed: Dose Aware of Vial Test Aware: Notes: [email or web address] Not available 11/16/2024 13:00:57 11/21/2024 11/21/2024 Visit With: Marga Harrison RN Use of Antihistamines: Yes If yes: Daily Vial Test Change in medications: No If yes Increase in asthma symptoms If yes, inhaler use: Reaction to last injections: No If yes: Allergy Symptoms: Other: Missed: Dose Aware of Vial Test Aware: Notes: [email or web address] Not available 11/21/2024 13:45:08 11/21/2024 11/21/2024 Right ear is looking better today without any signs of acute or chronic inflammation. No need for drops or other intervention. Follow-up in 6 months for next reevaluation Patient has been having difficulty with her immunotherapy. It turns out she has been missing a lot of of her allergy shot appointments, which has been hampering progression with her immunotherapy concentrations. We discussed how inconsistent allergy shot follow-up is negatively affecting her overall success with immunotherapy, and this may explain the majority of her symptoms. In addition she has a chronic cough which may represent cough variant asthma. I recommended she speak with her primary care physician about further workup and possible pulmonology evaluation. We did discuss the fact that she could consider use of sublingual immunotherapy as an alternative to subcutaneous immunotherapy, but she wants to get on track with regards to more consistent weekly allergy shots prior to considering this more expensive intervention. Not available 11/21/2024 11:06:14 Plan of Treatment Reminders Order Date Submit Date Provider Last Modified By Organization Details Last Modified Time Details Appointments Establish ed 10 2024 09:00A M SARIAH NATION MD Not available Not available Not available Lab None recorded. Referral None recorded. Procedures None recorded. Surgeries None recorded. Imaging None recorded. Medication Orders None recorded. Patient TargetsNo targets recorded. Patient InstructionsNo instructions recorded. Reason for Referral None Reported. 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 Other disorder s followin g mastoide ctomy, right ear; Note: Date Diagnose d: 2 4:39 PM (H95.191 ) Not Available [facility] 4 03:07:21 Tinnitus of right ear 41001007392 08 Active 2022 Tinnitus , right ear; Note: Date Diagnose d: 11/13/2022 3:13 PM (H93.11) Not Available [facility] 4 03:07:22 Sensorin eural hearing loss in left ear 31897636590 109 Active 2021 Sensorin eural hearing loss, unilater al, left ear, with restrict ed hearing on the contrala teral side; Note: Date Diagnose d: 2 4:39 PM (H90.A22 ) Not Available [facility] 4 03:07:20 Otorrhea of right ear [id number] 54316 Completed 202101/08/2024 Otorrhea , right ear; Note: Date Diagnose d: 2 9:57 AM (H92.11) Otorrh ea, right ear; Note: Date Diagnose d: 06/10/2019 2:45 PM (H92.11) ; Start Date : 06/10/19 20 Not Available [facility] 4 03:07:20 Allergic rhinitis caused by pollen 88430449 Active 2022 Allergic rhinitis due to pollen; Note: Date Diagnose d: 11/13/2022 3:13 PM (J30.1) Not Available [facility] 4 03:07:22 Partial loss of ear ossicles 69798534 Active 2021 Partial loss of ear ossicles , right ear; Note: Date Diagnose d: 2 9:54 AM (H74.321 ) Not Available [facility] 4 03:07:21 Follow-u p visit Active 2021 Medical surveill ance followin g complete d treatmen t; Note: Date Diagnose d: 04/25/20 22 3:46 PM (Z09) Not Available [facility] 4 03:07:22 Acute pharyngi tis 130954631 Completed 202201/04/2024 Acute pharyngi tis, unspecif ied; Note: Date Diagnose d: 03/19/20 9:39 AM (J02.9) Note: Date Diagnose d: 03/19/20 9:39 AM (J02.9) SARIAH NATION MD [address] [place] [address], [place], [address] , [place] - [facility] 4 16:30:12 Chronic inflamma tion of mastoid cavity 591898164 Completed 201901/08/2024 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, right ear; Note: Date Diagnose d: 06/10/2019 2:45 PM (H95.111 ) Not Available [facility] 4 03:07:21 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 Completed 201909/23/2024 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; Note: Date Diagnose d: 06/10/2019 2:42 PM (383.33) SARIAH NATION MD [address] [place] [address],[place] [address], [place], [address] , [place] [facility] 5 16:11:03 Perennia l allergic rhinitis 509612832 Active 2023 MARGA HARRISON RN [address] [place] [address],[place] [address], [place], [address] , [place] [facility] 4 15:03:21 Mixed conducti ve and sensorin eural hearing loss of right ear 38036751285 105 Active 2023 SARIAH NATION MD [address] [place] [address],[place] [address], [place], [address] , [place] [facility] 4 16:31:16 Otorrhea of right ear 00835336370 88280 Active 2023 Otorrhea , right ear; Note: Date Diagnose d: 2 9:57 AM (H92.11) Note: Date Diagnose d: 2 9:57 AM (H92.11) Otorrh ea, right ear; Note: Date Diagnose d: 06/10/2019 2:45 PM (H92.11) Note: Date Diagnose d: 06/10/2019 2:45 PM (H92.11) ; Start Date : 06/10/19 SARIAH NATION MD [address] [place] [address],[place] [address], [place], [address] , [place] [facility] 4 11:27:08 Mixed conducti ve and sensorin eural hearing loss of left ear 95455668031 107 Active 2021 Mixed conducti ve and sensorin eural hearing loss, unilater al, left ear with restrict ed hearing on the contrala teral side; Note: Date Diagnose d: 2 4:39 PM (H90.A32 ) Not Available [facility] 4 03:07:21 Acute myringit is of right ear 09785200582 05632 Active 2023 SARIAH NATION MD [address] [facility],[place] [address], [place], [address] , [place] [facility] 4 14:42:10 Chronic cough 54087334 Active 2024 SARIAH NATION MD [address] [facility],[place] [address], [place], [address] , [place] [facility] 5 11:02:20 Problem Notes None recorded. Procedures Surgical History Date Name Laterality Status Provider Name and Address Organization Details Recorded Time 11/22/19 25 Allergy Immunotherapy Injections completed MONSERRAT RATLIFF [address] [facility],[place] [address], [place], [address], [facility] - [facility] 11/21/2024 13:44:53 11/22/19 25 Debridement of Ear canal right completed SARIAH NATION MD [address] [facility],[place] [address], [place], [address], [place] [facility] 11/21/2024 10:55:36 11/17/19 25 Allergy Immunotherapy Injections completed MONSERRAT RATLIFF [address] [facility],[place] [address], [place], [address], [place] [facility] 11/16/2024 13:00:52 11/03/19 25 Allergy Immunotherapy Injections completed MONSERRAT RATLIFF [address] [facility],[address], [address], [place] [facility] 11/02/2024 16:21:54 10/26/19 25 Allergy Immunotherapy Injections completed MARGA HARRISON RN [address], [place], [address], [place] [facility] 10/25/2024 11:13:42 10/19/19 25 Allergy Immunotherapy Injections completed MONSERRAT RATLIFF [address], [place], [address], [place] [facility] 10/18/2024 11:15:57 10/07/19 25 Allergy Immunotherapy Injections completed MARGA HARRISON RN [address], [place], [address], [place] [facility] 10/06/2024 13:58:24 09/30/19 25 Allergy Immunotherapy Injections completed MARGA HARRISON RN [address], [place], [address], [place] [facility] 09/29/2024 11:43:33 09/24/19 25 Debridement of Ear canal right completed SARIAH NATION MD [address], [place], [address], [place] [facility] 09/23/2024 16:12:06 09/24/19 25 Allergy Immunotherapy Injections completed ADRIEL SHEPARD Bennett [address] [place] [address], [address], [place] [facility] 09/23/2024 15:51:09 09/10/19 25 Allergy Immunotherapy Injections completed ADRIEL SHEPARD Bennett [address] [place] [address], [address], [place] [facility] 09/09/2024 15:10:33 08/26/19 25 Allergy Immunotherapy Injections completed MARGA HARRISON RN [address], [place], [address], [place] [facility] 08/25/2024 10:17:50 08/10/19 25 Allergy Immunotherapy Injections completed MARGA HARRISON RN [address], [place], [address], [place] [facility] 08/09/2024 15:41:57 02/26/20 25 Allergy Immunotherapy Injections completed ROSA BOWMAN, A [address] [facility],[address], [address], [place] [facility] 08/03/2024 15:52:37 07/29/19 25 Allergy Immunotherapy Injections completed ADRIEL DEVYN, RMA [address] [facility],[address], [address], [place] [facility] 07/29/2024 15:33:14 07/15/19 25 Allergy Immunotherapy Injections completed ADRIEL IRMA, RMA [address] [facility],[address], [address], [place] [facility] 07/15/2024 15:35:02 07/08/19 25 Allergy Immunotherapy Injections completed MARGA HARRISON RN [address] [facility],[address], [address], [place] [facility] 07/08/2024 15:05:29 07/01/19 25 Allergy Immunotherapy Injections completed ADRIEL SHEPARD, A [address] [facility],[address], [address], [place] [facility] 07/01/2024 13:09:42 06/02/20 24 Allergy Immunotherapy Injections completed MARGA HARRISON RN [address] [facility],[address], [address], [place] [facility] 06/02/2024 14:12:21 06/02/20 24 Comp Audio with Tymps - 46345 & 66680 completed ORIANA GIBSON [address] [facility],[address], [address], [place] [facility] 06/02/2024 15:14:03 06/02/20 24 Debridement of Mastoid Cavity right completed SARIAH NATION MD [address] [facility],[address], [address], [place] [facility] 06/02/2024 14:47:20 05/20/20 24 Allergy Immunotherapy Injections completed ADRIEL DEVYN, RMA [address] [facility],[address], [address], [place] [facility] 05/20/2024 11:10:34 05/13/20 24 Allergy Immunotherapy Injections completed ADRIEL SHEPARD RMBennett [address], [place], [address], [place] [facility] 05/13/2024 15:19:24 04/22/20 24 Allergy Immunotherapy Injections completed MARGA HARRISON RN [address] [place] [address], [address], [place] [facility] 04/22/2024 15:06:00 03/31/20 24 Allergy Immunotherapy Injections completed MONSERRAT RATLIFF [address] [place] [address], [address], [place] [facility] 03/31/2024 15:25:04 03/10/20 24 Allergy Immunotherapy Injections completed ADRIEL SHEPARD A [address] [place] [address], [address], [place] [facility] 03/10/2024 14:25:36 03/03/20 24 Allergy Immunotherapy Injections completed ADRIEL SHEPARD Bennett [address] [place] [address], [address], [place] [facility] 03/03/2024 14:21:21 02/26/20 24 Allergy Immunotherapy Injections completed MARGA HARRISON RN [address] [place] [address], [address], [place] [facility] 02/26/2024 10:12:39 02/18/20 24 Allergy Immunotherapy Injections completed MARGA HARRISON RN [address] [place] [address], [address], [place] [facility] 02/18/2024 16:04:15 02/11/20 24 Allergy Immunotherapy Injections completed MONSERRAT RATLIFF [address] [place] [address], [address], [place] [facility] 02/11/2024 13:55:12 02/04/20 24 Allergy Immunotherapy Injections completed MONSERRAT RATLIFF [address], [place], [address], [facility] - [facility] 02/04/2024 13:18:37 01/21/20 24 Allergy Immunotherapy Injections completed ROSA BOWMAN, [facility] [address] [facility],[address], [address], [facility] - [facility] 01/21/2024 13:29:56 01/05/20 24 Debridement of Mastoid Cavity right completed SARIAH NATION MD [address] [facility],[address], [address], [facility] - [facility] 01/05/2024 11:26:57 01/05/20 24 Allergy Immunotherapy Injections completed MARGA HARRISON RN [address] [facility],[address], [address], [facility] - [facility] 01/05/2024 12:01:09 12/17/19 24 Allergy Immunotherapy Injections completed ADRIEL SHEPARD, [facility] [address] [facility],[address], [address], [facility] - [facility] 12/17/2023 11:19:30 11/30/19 24 Allergy Immunotherapy Injections completed MARGA HARRISON RN [address] [facility],[address], [address], [facility] - [facility] 11/30/2023 15:43:46 Appendectomy completed Mony Dailey [place] - [facility] 01/05/2024 10:43:00 Breast reduction completed Mony Dailey [place] [facility] 01/05/2024 10:43:07 Imaging Results None recorded. Procedure [...] mg tablet 07/15 completed Medicati on ID: [id number] D uration Value: 10 Brand Name: ibuprofe [...] eye drops 01/04 completed Medicati on ID: [id number] D uration Value: 14 Brand Name: Ciloxan Send Method: E-Prescr ibed Sub s Allowed: subs OK Speci al Instruct ion: 4 drops into right ear BID X 14 days Med [facility] Cil[facility]an Medicati on ID: [id number] D uration Value: 14 Brand Name: Ciloxan Send Method: E-Prescr ibed Sub s Allowed: subs OK Speci al Instruct ion: 4 drops into right ear BID X 14 days [facility] me: Ciloxan Not Available Not Available Not Available acetamino phen 500 mg tablet TAKE 1 TABLET BY MOUTH EVERY 8 HOURS NEEDED FOR PAIN 01/04 completed Not Available Not Available Not Available levothyro xine 25 mcg tablet TAKE ONE TABLET EVERY AM ON EMPTY STOMACH 01/04 completed Not Available Not Available Not Available ofloxacin 0.3 % ear drops INSTILL 4 DROPS INTO EAR TWICE A DAY FOR 7 DAYS 11/21 completed Not Available Not Available Not Available levothyro xine 50 mcg tablet TAKE 1 TABLET BY MOUTH EVERY DAY BEFORE BREAKFAS T active Not Available Not Available No t [...] mg tablet 12/17 completed Medicati on ID: [id number] D uration Value: 10 Brand Name: amoxicil ann marie-pot clavulan ate Send Method: E-Prescr ibed Sub s Allowed: subs OK Speci al Instruct ion: TAKE 1 TABLET EVERY TWELVE HOURS UNTIL FINISHED Medicat ionGener icName: amoxicil ann marie-pot clavulan ate Not Available Not Available Not Available tobramyci n 0.3 %-dexamet hasone 0.1 % eye drops,logan pension INSTILL 4 DROPS INTO RIGHT EAR BY OTIC ROUTE 2 TIMES PER DAY FOR 7 DAYS 09/23 completed Not Available Not Available Not Available oxycodone 5 mg tablet Take 1 tablet by mouth every six hours as needed for pain 01/04 completed Medicati on ID: [id number] D uration Value: 5 Prescri bed By Name: Erin Baeza nd Name: oxycodon e Send Method: E-Prescr ibed Sub s Allowed: subs OK Medic ationGen ericName : oxycodon e Medica tion ID: [id number] D uration Value: 5 Prescri bed By [...] day by otic route for 7 days. 09/23 completed Not Available Not Available Not Available 28 mg iron-800 mcg tablet TAKE [...] Diagnosis/Indication Diagnosis SNOMED-CT Code Diagnosis ICD10 Code Diagnosis Note [id number] MARGA HARRISON RN Allergy [address] [facility] 100 [place] [address] 11/30/2023 14:53:22 11/30/2023 16:16:05 Perennial allergic rhinitis [id number] J30.89 [id number] ADRIEL SOLIS, A Allergy 100 [facility] ite 100 [place] [address] 12/17/2023 10:56:38 12/17/2023 13:47:54 Perennial allergic rhinitis 321972650 J30.89 [id number] SARIAH NATION MD [facility] [address] [place] [address] 01/05/2024 10:28:27 01/05/2024 12:02:58 Follow-up visit [id number] Z09 Partial lo ss of ear ossicles 65551720 H74.321 Mixed cond uctive and sensorineural hearing loss of right ear 6351649289 9105 H90.A31 Otorrhea of right ear 10 81193653 340260 H92.11 Postmastoi dectomy complication 47411252 H95.191 Allergic r hinitis caused by pollen 37091715 J30.1 [id number] ADRIEL IRMA, [facility] Allergy [address] [place], [place] [address] 100 [place] [address] 01/05/2024 10:28:27 01/05/2024 12:02:58 Perennial allergic rhinitis 340516883 J30.89 [id number] [facility] [address] [place] [address] 100 [facility] [place] [address] 01/21/2024 13:03:22 01/21/2024 15:14:22 Perennial allergic rhinitis 700759498 J30.89 [id number] ROSA BOWMAN [facility] Allergy [address] [place] [address] 100 [place] [address] 02/04/2024 12:50:27 02/04/2024 13:52:32 Perennial allergic rhinitis 306358020 J30.89 [id number] ROSA BOWMAN [facility] Allergy [address] [place], [place] [address] 100 [place] [address] 02/11/2024 13:48:11 02/11/2024 14:04:04 Perennial allergic rhinitis 237257776 J30.89 [id number] MARGA HARRISON RN Allergy [address] [place] [address] ite 100 [facility] [address] 02/18/2024 15:56:39 02/18/2024 16:04:43 Perennial allergic rhinitis 455810395 J30.89 [id number] MARGA HARRISON RN Allergy [address] [place] [address] 100 [place] [address] 02/26/2024 10:03:49 02/26/2024 10:13:06 Perennial allergic rhinitis 583297412 J30.89 [id number] 100 [facility] [address] 03/03/2024 13:52:41 03/03/2024 14:21:57 Perennial allergic rhinitis 869195801 J30.89 [id number] [facility], [facility] Allergy [address] [place] [address] 100 [place] [address] 03/10/2024 14:18:28 03/10/2024 14:54:23 Perennial allergic rhinitis 897085016 J30.89 [id number] MARGA HARRISON RN Allergy [address] [place] [address], [place] [address] 03/31/2024 15:21:42 03/31/2024 15:25:34 Perennial allergic rhinitis 542014313 J30.89 [id number] MARGA HARRISON RN Allergy [address] [place] [address], [place] [address] 04/22/2024 14:47:50 04/22/2024 15:06:28 Perennial allergic rhinitis 220888901 J30.89 [id number] [facility] Allergy [address] [place] [address] 100 [facility] [place] [address] 05/13/2024 14:51:58 05/13/2024 15:19:45 Perennial allergic rhinitis 301459547 J30.89 [id number] MARGA HARRISON RN Allergy [address] [place] [address] 100 [place] [address] 05/20/2024 10:18:31 05/20/2024 11:11:17 Perennial allergic rhinitis 457085533 J30.89 [id number] SARIAH NATION MD [facility] [address] [place] [address] 06/02/2024 13:59:12 06/02/2024 15:42:34 Mixed conductive and sensorineural hearing loss of right ear 9305530042 9105 H90.A31 Audiologic al evaluation results: Right ear:Normal sloping to severe mixed hearing loss with excellent word recognitio n.Left ear:Normal through 2 kHz sloping to moderately severe sensorineu ral hearing loss with excellent word recognitio n. Tympanomet ry:Right Ear:Type AsLeft Ear:Type AAudiometr ic testing reviewed with the patient which showed similar audiometri c thresholds with mild residual mixed hearing loss in the right ear. Reassuranc e given that things appear stable here. Otorrhea of right ear 10 34389318 078959 H92.11 Postmastoi dectomy complication 45680471 H95.191 Allergic r hinitis caused by pollen 65907602 J30.1 Acute myri ngitis of right ear 2063426146 405771 H73.001 [id number] MARGA HARRISON RN Allergy [address] [place] [address] 06/02/2024 14:00:52 06/02/2024 14:13:01 Perennial allergic rhinitis 096977555 J30.89 [id number] ADRIEL IRMA [facility] Allergy [address] [place] [address] 07/01/2024 12:57:35 07/01/2024 13:10:13 Perennial allergic rhinitis [id number] J30.89 [id number] MARGA HARRISON RN Allergy [address] [place] [address] 100 [place] [address] 07/08/2024 14:50:41 07/08/2024 15:06:02 Perennial allergic rhinitis 557785252 J30.89 [id number] [facility] [address] [place] [address] 100 [place] [address] 07/15/2024 14:38:43 07/15/2024 15:35:58 Perennial allergic rhinitis 367995911 J30.89 [id number] ADRIEL IRMA [facility] Allergy [address] [place] [address] 07/29/2024 15:05:32 07/29/2024 15:33:58 Perennial allergic rhinitis 583416607 J30.89 [id number] ROSA TUSSM [facility] Allergy [address] [place] [address], [place] [address] 08/03/2024 15:45:05 08/03/2024 15:53:02 Perennial allergic rhinitis [id number] J30.89 [id number] [facility] [address] [place] [address], [place] [address] 08/09/2024 15:24:05 08/09/2024 15:42:35 Perennial allergic rhinitis 411049096 J30.89 [id number] MARGA HARRISON RN Allergy [address] [place] [address], [place] [address] 08/25/2024 09:52:07 08/25/2024 10:18:06 Perennial allergic rhinitis 214948729 J30.89 [id number] [facility] [address] [place] [address] 09/09/2024 14:28:49 09/09/2024 15:10:52 Perennial allergic rhinitis 887865030 J30.89 [id number] SARIAH NATION MD [facility] [address] [place] [address] 09/23/2024 14:41:50 09/23/2024 16:11:49 Otorrhea of right ear [id number] H92.11 Acute myri ngitis of right ear [id number] H73.001 07691 [facility] All[facility] [address] [place] [address] 100 [place] [address] 09/23/2024 14:33:43 09/23/2024 15:51:44 Perennial allergic rhinitis [id number] J30.89 [id number] MARGA HARRISON RN Allergy [address] [place] [address] 100 [place] [address] 09/29/2024 11:36:30 09/29/2024 11:44:00 Perennial allergic rhinitis [id number] J30.89 [id number] MARGA HARRISON RN Allergy 100 [facility],[place] 100 [place] [address] 10/06/2024 13:49:29 10/06/2024 13:58:49 Perennial allergic rhinitis [id number] J30.89 [id number] ROSA BOWMAN [facility] Allergy 100 [facility],[place] [address] [place] [address] 10/18/2024 10:40:33 10/18/2024 11:17:21 Perennial allergic rhinitis [id number] J30.89 [id number] MARGA HARRISON RN Allergy [address] [place] [address],[place] 100 [facility] [place] [address] 10/25/2024 10:34:47 10/25/2024 11:14:13 Perennial allergic rhinitis [id number] J30.89 [id number] ROSA BOWMAN [facility] Allergy [address] [place] [address],[place] [address] [place] [address] 11/02/2024 16:10:52 11/02/2024 16:46:41 Perennial allergic rhinitis [id number] J30.89 [id number] ROSA BOWMAN [facility] Allergy 100 [facility],[place] [address] [place] [address] 11/16/2024 11:04:26 11/16/2024 13:01:21 Perennial allergic rhinitis [id number] J30.89 [id number] SARIAH NATION MD [facility] 100 [facility] [place] [address] 11/21/2024 09:40:22 11/21/2024 11:06:23 Perennial allergic rhinitis [id number] J30.89 Postmastoi dectomy complication [id number] H95.191 Chronic cough [id number] R 05.3 [id number] MARGA HARRISON RN Allergy [address] [place] [address],[place] [address] [place] [address] 11/21/2024 13:44:05 11/21/2024 13:54:47 Perennial allergic rhinitis [id number] J30.89 Health Concerns Section Related Observation LastModified by Organization Detai ls LastModified Time None Recorded Concern Status LastModified by Organization Details LastModified Time None Recorded Advance Directives Directive None Recorded Payers Insurance Date Sequence Insurance Name Policy Number Policy Felix Covered Member ID Felix Member ID Guarantor Name 07/01/2024 1 [facility] [employer] PLANS [facility] - DIRECT - [place] ZERO (HMO) [id number] Edeusa Jarod [id number] Edeusa Jarod 11/21/2024 1 [facility]: HMO [facility] (HMO) [id number] Edeusa Jarod [id number] Edeusa Jarod Notes Date Note Type Note Provider Name and Address Organization Details Recorded Time 11/21/2024 text/html History of right mastoid obliteration. Currently getting subcutaneous immunotherapy. Patient comes in with the right ear nose today, mostly centered around problems with immunotherapy. Patient notes that after getting her allergy shots she has been having more systemic symptoms of facial swelling, cough and congestion, and difficulty breathing and general feeling of malaise. She continues to have a lot of rhinorrhea, as well as chronic cough over the past 3 months She is wondering if she is on the proper dose or schedule of immunotherapy. Also curious as to other treatments or forms of immunotherapy. SARIAH NATION MD [address] [place] [address], [address], [place] - [facility] 11/21/2024 11:06:44 OBGyn Episode No OBEpisode recorded.
--- OUTSIDE RECORDS SUMMARY | 2024-12-15 11:42 | XMS_ITS | Clinical Summary ---
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
--- OUTSIDE RECORDS SUMMARY | 2024-12-15 11:42 | XMS_ITS ---
Author Name [facility] Organization Unknown History of Medication Use Medication Directions Dispensed Refills Start Date End Date Stat amoxicillin 500 mg capsule TAKE 1 CAPSULE (500 MG) BY MOUTH EVERY 8 HOURS FOR 7 DAYS 06/14/2024 completed Clomid 50 mg tablet TAKE TWO TABLETS BY MOUTH FROM CYCLE DAYS 5-9 OF MENSTRUAL CYCLE 06/14/2024 completed epinephrine 0.3 mg/0.3 mL injection, auto-injector INJECT 1 PEN INJECTOR A SINGLE DOSE NEEDED 06/14/2024 completed fluconazole 150 mg tablet TAKE 1 TABLET BY MOUTH ONCE PER WEEK FOR 3 WEEKS 06/14/2024 completed Immunizations Vaccine Date Source Lot Number Status COVID-19, mRNA, LNP-S, PF, t ris-sucrose, 30 mcg/0.3 mL 03/24/2024 [facility] [id number] completed Influenza, split virus, trivalent, PF 03/24/2024 [facility] [id number] completed COVID-19, mRNA, LNP-S, PF, 3 0 mcg/0.3 mL dose, demetrius-sucrose 07/14/2021 [facility] [id number] completed Influenza, split virus, quadrivalent, PF 02/13/2021 [facility] [id number] completed COVID-19, mRNA, LNP-S, PF, 30 mcg/0.3 mL dose 09/28/2020 [facility] [id number] completed COVID-19, mRNA, LNP-S, PF, 30 mcg/0.3 mL dose 09/05/2020 [facility] [id number] completed Influenza, MDCK, quadrivalent, preservative 03/11/2019 [facility] [id number] completed Hep B, adult 11/15/2018 [facility] [id number] completed Influenza, split virus, quadrivalent, PF 03/10/2018 [facility] [id number] completed Influenza, split virus, quadrivalent, PF 08/03/2017 [facility] [id number] completed Tdap 08/03/2017 [facility] [id number] completed Encounters Encounter Type Encounter Reason Primary Diagnosis Location Date Ambulatory Encntr screen for infections w sexl mode of transmiss Encntr screen for infections w sexl mode of transmiss [facility] 06/28/2024 Ambulatory no current diagnosis no current diagnosis [facility] 06/14/2024 Care Team Organization Name Specialty Phone Email Start Date End Da te [facility] 06/18/2024 [facility] 06/14/2024
[2024-12-15 14:23] LABS: MANUAL DIFF FLAG NO
[2024-12-15 14:34] LABS: Hematocrit 34.6 % (37.0-47.0); Hemoglobin 11.4 g/dl (12.0-16.0); Imm Gran Abs Auto 0.02 X10*3/uL (0.00-0.03); Imm Gran Pct Auto 0.4 % (0.0-0.4); Lymphocytes Absolute Auto 1.5 X10*3/uL (1.2-4.9); Mean Corpuscular HGB Conc 32.9 g/dl (31.0-35.0); Mean Corpuscular Hemoglobin 25.9 pg (27.0-33.0); Mean Corpuscular Volume 78.5 fL (80.0-98.0); NRBC Abs Auto 0.000 X10*3/uL (0.0-0.012); NRBC Pct Auto 0.0 /100WBC (0.0-0.2); Platelet Count 279 X10*3/uL (160-400); Red Blood Count 4.41 X10*6/uL (4.20-5.50); White Blood Count 5.5 X10*3/uL (4.8-10.8)
[2024-12-15 14:51] LABS: Iron 85 mcg/dL (30-160); Percent Iron Saturation 30 % (15-50); Total Iron Binding Capacity 286 mcg/dL (228-428); Unsaturated Iron Binding 201 ug/dL
[2024-12-15 15:07] LABS: Ferritin 25 ng/mL (10-250); Free T4 (Free Thyroxine) 0.97 ng/dL (0.71-1.85); Thyroid Stimulating Hormone 1.99 uIU/mL (0.32-4.0)
[2024-12-15 15:17] LABS: Folate 7.6 ng/mL (> or = 4.0); Vitamin B12 615 pg/mL (200-900)
== END 2024-12-15 11:00 | disposition home or self-care (01) ==
LOC: HO.HHCL 10:59
PROVIDERS: PCP Student in an Organized Health Care Education/Training Program; Visit Provider Student in an Organized Health Care Education/Training Program
DX: E03.9 Hypothyroidism, unspecified (principal); D64.9 Anemia, unspecified
CPT/HCPCS: 36415; 82607; 82728; 82746; 83540; 84439; 84443; 85025

== ENCOUNTER 2025-01-30 15:20 | Outpatient (REF) | payer BC, SELFPAY ==
[2025-01-30 16:58] LABS: Free T4 (Free Thyroxine) 0.83 ng/dL (0.71-1.85); Thyroid Stimulating Hormone 1.93 uIU/mL (0.32-4.0)
--- OUTSIDE RECORDS SUMMARY | 2025-01-30 16:59 | XMS_ITS | Clinical Summary ---
Author Organization [facility] Address [address] [place] [address] Care Team Providers Care Test Tube Maker Name Role Phone oJshuadanyaKelly ty KENNEL STAFF MEMBER-C Primary Care Provider Cheri plascencia Source Comments [...] of Treatment Not on file Care Teams Test Tube Maker Relationship Specialty Start Date End Date Kelly Kirby, KENNEL STAFF MEMBER-C PCP - General 08/10/20
--- OUTSIDE RECORDS SUMMARY | 2025-01-30 17:00 | XMS_ITS | Encounter Summary ---
Author Organization [employer] Address [address] [place] [address] [place] [address] Care Team Providers Care Medical I D Sales Name Role Phone Savannah Segovia MD Primary Care Pro vider Encounter Details Date Type Department Care Team ([facility] st Contact Info) Description 12/15/2024 Results Follow-Up [facility] MED[facility] [address] [place] [address] Savannah Segovia MD [address] [place] [address] TSH, T4, Free, CBC auto differential, Additional followed-up results: 3 Social History Tobacco Use Types Packs/Day Years Used Date Smoking Tobacco: Never Passive Smoke Exposure: Never Smokeless Tobacco: Never Comments:Started smoking 14 y of age and stopped 16 y of age ,social Alcohol Use Standard Drinks/Week Comments Not Currently 0 (1 standard drink = 0.6 oz pur e alcohol) Depression Answer Date Recorded Patient Health Questionnaire-9 Score 0 10/25/2024 Patient Health Questionnaire-9 Score 0 10/25/2024 Last PHQ-9: Questionnaire Data Not on file 0 10/25/2024 Housing Stability Answer Date Recorded What is your housing situation today? I have leonid hooper 10/25/[address] you li ve. Do you have problems with any of the following? None of the above 10/25/2024 Food Insecurity Answer Date Recorded Within the past 12 months, y ou worried that your food would run out before you got money to buy more: Never True 10/25/2024 Within the past 12 months,th e food you bought just didn't last and you didn't have enough money to get more: Never True Transportation Answer Date Recorded In the past 12 months, has l ack of transportation kept you from medical appts, meetings, work or from getting things needed for daily living? No 10/25/2024 Utilities Answer Date Recorded In the past 12 months, has t he electric, gas, oil or water company threatened to shut off services in your home? No 10/25/2024 Depression Answer Date Recorded Patient Health Questionnaire-2 Score 0 10/25/2024 Internet Access Answer Date Recorded Internet Access Q1 Yes 10/25/2024 Internet Access Q2 Not on file 10/25/2024 Comments Unknown Sex and Gender Information Value Date Recorded Sex Assigned at Female 04/07/2022 10:35 AM EDT Legal Sex Female 10:35 AM EDT Gender Identity Female 04/07/2022 10:35 AM EDT Sexual Orientation Straight 04/07/2022 10 :35 AM EDT documented as of this encounter Miscellaneous Notes * Result Encounter Note - Savannah Jones MD - 12/15/2024 3:25 PM EDT Please call patient to advise to come to already scheduled apt with me to go over abnormal labs Thanks documented in this encounter Plan of Treatment Upcoming Encounters Date Type Department Care Team (Late st Contact Info) Description 02/01/2025 1:30 PM EDT Office Visit [facility] ADULT DENTAL [address] [place] [address] Heydi Young, DDS [address] [place] [address] 03/23/2025 9:30 AM EDT Office Visit [facility] MEDIC[facility] [address] [place] [address] Savannah Segovia MD [address] [place] [address] documented as of this encounter Visit Diagnoses Not on filedocumented in this encounter Additional Health Concerns Assessment Noted Time PHQ-9 Depression Total Score: 0 10/26/19 25 9:26 AM EDT documented as of this encounter Care Teams Medical I D Sales Relationship Specialty Start Date End Date Savannah Segovia MD [address] [place] [address] PCP - General Internal Medicine 02/16/23 documented as of this encounter
--- OUTSIDE RECORDS SUMMARY | 2025-01-30 17:00 | XMS_ITS | Clinical Summary ---
Author Organization [facility] Address [address] [place] [address] Care Team Providers Care Manager Treasury Name Role Phone Sreekanth RobertSavannah G Primary Care Provider [phone] Allergies No known active allergies Medications levothyroxine [...] 08/16/2020 Hearing loss of left ear 08/16/2020 Encounters Date Type Department Care Team Description 11/24/2024 Documentation [facility] IVF [address] [place] [address] Homicide Squad Lieutenant: Odilon Tenorio MD 11/02/2024 10:00 AM EDT Evaluation [facility] [address] [place] [address] Homicide Squad Lieutenant: Odilon Tenorio MD Turner, Reyna [place], [place] Infertility, female from Last 3 Months Family History Medical History Relation Name Comments Esophagitis Father Lymphoma Sister Relation Name Status Comments Father Sister Social History Tobacco Use Types Packs/Day Years [...] 07/03/2020 9:52 AM EST Plan of Treatment Health Maintenance Due Date Last Done Comments Cervical Cancer Screening 1983 HPV and Pap Smear 1983 Pap Smear 1983 Varicella Vaccines (1 of 2 - 13+ 2-dose series) 1996 Hepatitis B Vaccines (2 of 3 - 19+ 3-dose series) 12/13/2018 11/15/2018 Mammogram 2023 COVID-19 Vaccine ( season) 2024 07/14/2021, 09/28/2020, 09/05/2020 Alcohol/Substance Use Screening 06/08/2024 Depression Screening and Follow-Up 06/08/2024 Social Drivers of Health Annual Screening 06/08/2024 Influenza Vaccine (#1) 2025 , 02/13/2021, 03/11/2019, Additional history exists Chlamydia Screening 08/11/2025 08/11/2024 DTaP,Tdap,and Td Vaccines (2 - Td or Tdap) 08/03/2027 08/03/2017 RSV Vaccine (60+ years old and patients) (1 - 1-dose 75+ series) 2058 HIV Screening Completed 05/11/2024, 09/2023, 02/07/2021 Hepatitis C Screening Completed 05/11/2024 Pneumococcal Vaccine: Pediatric (0-5 Years) and At-Risk Patients (6-50 Years) Aged Out No longer eligible based on patient's age to complete this topic Procedures * Due to [place] Phonetime law, this organization might not be sharing negative HIV tests. Procedure Name Priority Date/Time Associated Diagnosis Comments CHLAMYDIA/NEISSERI A GONORRHEA RNA Routine 08/11/2024 9:49 AM EST Procreation management investigation and testing from Last 3 Months or Most Recently Relevant to Health Maintenance Results * Due to [place] Phonetime law, this organization might not be sharing negative HIV tests. * Chlamydia/Neisseria gonorrhoeae RNA (08/11/2024 9:49 AM EST) Pathologist [facility] Chlamydia trachomatis RNA, TMA NOT DETECTED NOT DETECTED 08/12/2024 5:07 AM EST [facility] Neisseria Gonorrhoeae RNA, TMA NOT DETECTED NOT DETECTED 08/12/2024 5:07 AM EST [facility] Comment: The analytical performance characteristics of this assay, when used to test SurePath(TM) specimens have been determined by [employer]. The modifications have not been cleared or approved by the FDA. This assay has been validated pursuant to the CLIA regulations and is used for clinical purposes. For additional information, please refer to https://education.ShopSpot/faq/JIO548 (This link is being provided for information/ educational purposes only.) Urine Voided urine specimen / Unknown Non-Blood Collection / Unknown 08/11/2024 9:49 AM EST 08/11/2024 10:48 AM EST [facility] [place] - 08/12/2024 5:07 AM EST [facility] Received Date:[id number] Mackenzie Golden NP LAB URINE ORDERABLES Fin al Result ZE[facility] NICHOLAS [address] [facility] [address]rd Floor, [place] [address], [place] [phone] [facility] [address] [facility] 3rd Floor, [address] [facility] [place] [address], [place] [phone] from Last 3 Months or Most Recently Relevant to Health Maintenance [facility] HS[facility]/FREE CARE [facility] PPO/EPO Advance Directives Healthcare Agents on File Name Relationship Healthcare Agent [facility] p Communication Alvaro Michelleos Spouse Health Care Agent Care Teams Manager Treasury Relationship Specialty Start Date End Date Savannah Segovia [address] [place] [address] PCP - General 08/11/24
--- OUTSIDE RECORDS SUMMARY | 2025-01-30 17:00 | XMS_ITS | Clinical Summary ---
Author Organization [facility] Address [address] [facility] [address] [place] [address] Phone Care Team Providers Care Curtain Feller Blindstitch Name Role Phone Unknown, Unknown Primary Care Provider Raziavai labkimberlee Allergies No known active allergies Medications clotrimazole (GYNE-LOTRIMIN 3) 2 % Crea Insert one applicatorful intravaginally at night for 3 days 3 Active fluconazole (DIFLUCAN) 150 MG tablet 1 tab po ONCE per week x 3 weeks (total of 3 tablets) 3 Active 28 mg iron- 800 mcg Tab Take 1 tablet by mouth every morning. 3 Active olopatadine (PATADAY) 0.2 % Drop Place 1 drop into each eye daily. 5 mL 3 3 Active levothyroxine (SYNTHROID, LEVOTHROID) 50 MCG tablet TAKE ONE TABLET BY MOUTH DAILY IN AM ON EMPTY STOMACH 3 Active Social History Tobacco Use Types Packs/Day Years Used Date Smoking Tobacco: Never Smokeless Tobacco: Never Tobacco Cessation:Counseling Given: Not Answered Education Answer Date Recorded Are you interested in more education? Not on saeid e 10/03/2022 Are you concerned about learning? Not on file 10/03/2022 No 10/03/2022 No 10/03/2022 Digital Access Answer Date Recorded No 11/01/2022 No 11/01/2022 Reliable internet access at home? Not on file 11/01/2022 Device with a working camera? Not on file Comments Unknown Sex and Gender Information Value Date Recorded Sex Assigned at Female 12/01/2022 1:39 PM EDT Legal Sex Female 5:05 PM EST Gender Identity Female 12/01/2022 1:39 PM EDT Sexual Orientation Not on file Plan of Treatment Health Maintenance Due Date Last Done Comments TSH LEVEL 1983 DEPRESSION SCREENING 1995 HEPATITIS C SCREENING 2001 HIV ONE-TIME SCREENING (18-6 5 YEARS) 2001 PAP SMEAR 2004 SMOKING STATUS SCREENING (On ce After 26 Yrs) 2009 MAMMOGRAM 2023 COVID-19 VACCINE (2023-2 5 season) 2024 09/05/2020 INFLUENZA VACCINE (#1) 2025 03/11/2019 Adult Td,Tdap Booster 08/03/2027 08/03/2017 HEPATITIS A VACCINES Aged Out No long er eligible based on patient's age to complete this topic HIB VACCINES Aged Out No longer eligi ble based on patient's age to complete this topic MENINGOCOCCAL VACCINES (ACWY) Aged Out No longer eligible based on patient's age to complete this topic MENINGOCOCCAL VACCINES (B) Aged Out N o longer eligible based on patient's age to complete this topic PNEUMOCOCCAL VACCINES (0-49 years) Aged Out No longer eligible based on patient's age to complete this topic Medical Devices Not on file [place] [address] [place] [address] [employer] PLANS DIRECT PLANS DIRECT DIRECT PLANS DIRECT [facility] DIRECT [facility] DIRECT Care Teams Curtain Feller Blindstitch Relationship Specialty Start Date End Date Unknown, Unknown, PCP - General 09/05/22 Additional Source Comments The information contained in this document represents components of the legal health record. It is not the complete legal health record.[facility]
--- OUTSIDE RECORDS SUMMARY | 2025-01-30 17:00 | XMS_ITS | Encounter Summary ---
Author Organization [employer] Address [address] [place] [address] [address] [place] [address] Care Team Providers Care Floor Associate Name Role Phone Savannah Segovia MD Primary Care Pro vider Reason for Visit * Reason Onset Date Comments temp crown fell off 12/23/2023 Encounter Details Date Type Department Care Team (Late st Contact Info) Description 12/23/2023 Telephone [facility] ADULT DENTAL [address] [place] [address] Heydi Young DDS [address] [place] [address] temp crown fell off Social History Tobacco Use Types Packs/Day Years Used Date Smoking Tobacco: Never Passive Smoke Exposure: Never Smokeless Tobacco: Never Alcohol Use Standard Drinks/Week Comments Never 0 (1 standard drink = 0.6 oz pur e alcohol) Comments Unknown Sex and Gender Information Value Date Recorded Sex Assigned at Female 04/07/2022 10:35 AM EDT Legal Sex Female 10:35 AM EDT Gender Identity Female 04/07/2022 10:35 AM EDT Sexual Orientation Straight 04/07/2022 10 :35 AM EDT documented as of this encounter Miscellaneous Notes * Telephone Encounter - Heydi Young DDS - 12/23/2023 11:50 AM EDT All set! * Telephone Encounter - Salima Snady - 12/23/2023 11:32 AM EDT The message was sent to Dr. Cagle and her name is on the encounter message. Patient called in to inform her temp crown has fallen off. Patient informed that provider will get message and determine whether patient has to come in prior to delivery on 12/30 of if its ok to wait. * Telephone Encounter - Sudheer Duncan DMD - 12/23/2023 10:35 AM EDT Please follow up with dr. Cagle * Telephone Encounter - Salima Sandy - 12/23/2023 9:12 AM EDT Patient called in stating that temp crown fell off. Informed patient I would reach out to provider and determination will happen as to what to do next. Pls reach out to patient DR documented in this encounter Plan of Treatment Upcoming Encounters Date Type Department Care Team (Late st Contact Info) Description 02/01/2025 1:30 PM EDT Office Visit [facility] ADULT DENTAL [address] [place] [address] Heydi Young, DDS [address] [place] [address] 03/23/2025 9:30 AM EDT Office Visit [facility] MEDICINE [address] [place] [address] Savannah Segovia MD [address] [place] [address] documented as of this encounter Visit Diagnoses Not on filedocumented in this encounter Care Teams Floor Associate Relationship Specialty Start Date End Date Savannah Segovia MD [address] [place] [address] PCP - General Internal Medicine 02/16/23 documented as of this encounter
--- OUTSIDE RECORDS SUMMARY | 2025-01-30 17:00 | XMS_ITS | Encounter Summary ---
Author Organization [employer] Address [address] [place] [address] [place] [address] Care Team Providers Care Terrazzo Mechanic Helper Name Role Phone Savannah Segovia MD Primary Care Pro vider Encounter Details Date Type Department Care Team ([facility] st Contact Info) Description 12/03/2024 Results Follow-Up [facility] MEDICINE [address] [place] [address] Savannah Segovia MD [address] [place] [address] [place] EXTREMITY NON-VASCULAR RIGHT LIMITED Social History Tobacco Use Types Packs/Day Years [...] AM EDT documented as of this encounter Plan of Treatment Upcoming Encounters Date Type Department Care Team (Late st Contact Info) Description 02/01/2025 1:30 PM EDT Office Visit [facility] ADULT DENTAL [address] [place] [address] Reed-Cagle, Heydi, DDS [address] [place] [address] 03/23/2025 9:30 AM EDT Office Visit [facility] MEDICINE [address] [place] [address] Savannah Segovia MD [address] [place] [address] documented as of this encounter Visit Diagnoses Not on filedocumented in this encounter Additional Health Concerns Assessment Noted Time PHQ-9 Depression Total Score: 0 10/26/19 9:26 AM EDT documented as of this encounter Care Teams Terrazzo Mechanic Helper Relationship Specialty Start Date End Date Savannah Segovia MD [address] [place] [address] PCP - General Internal Medicine 02/16/23 documented as of this encounter
--- OUTSIDE RECORDS SUMMARY | 2025-01-30 17:00 | XMS_ITS | Encounter Summary ---
Author Organization [employer] Address [address] [place] [address] Care Team Providers Care Conveyor Mechanic Name Role Phone Savannah Segovia MD Primary Care Pro vider Reason for Visit * Reason Onset Date Comments Lab Orders 01/30/2025 Encounter Details Date Type Department Care Team ([facility] st Contact Info) Description 01/30/[address] [facility] MEDICINE [address] [place], [place] [phone] Savannah Segovia MD [address] [place] [address] Lab Orders Social History Tobacco Use Types Packs/Day Years [...] encounter Miscellaneous Notes * Telephone Encounter - Carline Gunn RN - 01/30/2025 4:11 PM EDT TC placed to the pt to inform that PCP placed the HCG blood test. Pt confirmed that she already hadthe blood drawn and advised that results will be sent to PCP. Pt agreeable and had no further questions at this time. * Telephone Encounter - Jose Gomez - 01/30/2025 9:10 AM EDT Tc from pt requesting a lab order for blood to confirm Contact pt at [phone] documented in this encounter Plan of Treatment Upcoming Encounters Date Type Department Care Team (Late st Contact Info) Description 02/01/2025 1:30 PM EDT Office Visit [facility] ADULT DENTAL [address] [place] [address] Heydi Young DDS [address] [place] [address] 03/23/2025 9:30 AM EDT Office [address] [facility] MEDICINE [address] [place], [place] [phone] Savannah Segovia MD [address] [place] [address] documented as of this encounter Visit Diagnoses Not on filedocumented in this encounter Additional Health Concerns Assessment Noted Time PHQ-9 Depression Total Score: 0 10/26/19 25 9:26 AM EDT documented as of this encounter Care Teams Conveyor Mechanic Relationship Specialty Start Date End Date Savannah Segovia MD [address] [place], [place] [phone] PCP - General Internal Medicine 02/16/23 documented as of this encounter
--- OUTSIDE RECORDS SUMMARY | 2025-01-30 17:00 | XMS_ITS | Encounter Summary ---
Author Organization [facility] Address [address] [place] [address] Care Team Providers Care Glue Specialty Supervisor Name Role Phone Kelly Kirby Primary Care Provider U navailable Reason for Visit * Reason Comments Office Visit: Converted Data Conversion Encounter Details Date Type Department Care Team (Late st Contact Info) Description 08/11/2017 Dental Interim Note [facility] [address] [facility], [address] [place] [address] [phone] Default, [facility] Provider [place] Social History Tobacco Use Types Packs/Day Years Used Date Smoking Tobacco: Never Assessed Comments Unknown Sex and Gender Information Value Date Recorded Sex Assigned at Not on file Legal Sex Female 11:21 PM PST Gender Identity Not on file Sexual Orientation Not on file documented as of this encounter Plan of Treatment Not on file documented as of this encounter Visit Diagnoses Not on filedocumented in this encounter Care Teams Glue Specialty Supervisor Relationship Specialty Start Date End Date Kelly Kirby FNP-C PCP - General 08/10/20 documented as of this encounter
--- OUTSIDE RECORDS SUMMARY | 2025-01-30 17:00 | XMS_ITS | Clinical Summary ---
Author Organization [employer] Address [address] [facility] [address] [place] [address] Care Team Providers Care Steel Spar Operator Name Role Phone Savannah Segovia MD Primary Care Pro vider Allergies No known active allergies Medications cetirizine (ZyrTEC) 10 MG tablet Take 10 mg by mouth. 1 Active EPINEPHrine (Epipen) 0.3 MG/0.3ML injection syringe INJECT 1 PEN INJECTOR A SINGLE DOSE NEEDED Active Multiple Vitamin (multivitamin) tablet Take 1 tablet by mouth Once per day. Active levothyroxine (Synthroid, Levoxyl) 50 MCG tablet TAKE 1 TABLET BY MOUTH EVERY DAY BEFORE BREAKFAST 90 tablet 5 Active Tirzepatide-Heath ght Management 12.5 MG/0.5ML solution auto-injectorIn dications:Obesi ty (BMI 30.0-34.9) Inject 0.5 mL (12.5 mg) under the skin 1 (one) time per week. 0.5 mL 2 5 Active ferrous gluconate (Fergon) 324 (38 Fe) MG tablet Take 1 tablet (324 mg) by mouth with breakfast. 30 tablet 2 5 12/21/19 26 Active Ascorbic Acid (vitamin C) 250 MG tablet Take 1 tablet (250 mg) by mouth Once per day. 30 tablet 2 5 12/21/19 26 Active psyllium (Metamucil Smooth Texture) 58.6 % powder Take 5.12 g (3 g of fiber) by mouth 2 times daily. 283 g 2 5 12/21/19 26 Active Active Problems Problem Noted Date Diagnosed Date Bruxism 12/20/2024 Chronic cough 11/21/2024 Arm mass, right 10/25/2024 Acute myringitis of right ear 06/02/2024 Anemia 05/13/2024 Health care maintenance 03/25/2024 Hypothyroidism 03/25/2024 History of syphilis 03/25/2024 Mixed conductive and sensori neural hearing loss of right ear 01/04/2024 Perennial allergic rhinitis 11/30/2023 Acute pharyngitis 03/19/2023 Overview (01/13/2025): Acute pharyngitis, unspecified; Note: Date Diagnosed: 03/19/2023 9:39 AM (J02.9) Note: Date Diagnosed: 03/19/2023 9:39 AM (J02.9) Generalized anxiety disorder 03/11/2023 Other disorders following mastoidectomy, right e ar 12/21/2022 Overview (03/11/2023): ENT surgery 04/18/22 11/14/22 ENT appt Well healed mastoidectomy, canal reconstruction Order allergy testing F/u after testing Allergic rhinitis due to pollen 11/13/2022 Overview (02/26/2024): Allergic rhinitis due to pollen; Note: Date Diagnosed: 11/13/2022 3:13 PM (J30.1) Note: Date Diagnosed: 11/13/2022 3:13 PM (J30.1) Allergic rhinitis due to pollen; Note: Date Diagnosed: 11/13/2022 3:13 PM (J30.1) Tinnitus of right ear 11/13/2022 Overview (02/26/2024): Tinnitus, right ear; Note: Date Diagnosed: 11/13/2022 3:13 PM (H93.11) Note: Date Diagnosed: 11/13/2022 3:13 PM (H93.11) Tinnitus, right ear; Note: Date Diagnosed: 11/13/2022 3:13 PM (H93.11) Encounter for follow-up exam ination after completed treatment for conditions other than malignant neoplasm 2022 Overview (01/13/2025): Medical surveillance following completed treatment; Note: Date Diagnosed: 2022 3:46 PM (Z09) Otorrhea of right ear 12/17/2021 Overview (01/13/2025): Otorrhea, right ear; Note: Date Diagnosed: 12/17/2021 9:57 AM (H92.11) Otorrhea, right ear; Note: Date Diagnosed: 06/10/2019 2:45 PM (H92.11) ; Start Date : 06/10/2019 Partial loss of ear ossicles 12/17/2021 Overview (01/13/2025): Partial loss of ear ossicles, right ear; Note: Date Diagnosed: 12/17/2021 9:54 AM (H74.321) Mixed conductive and sensorineural hearing loss of left ear 06/19/2021 Overview (01/13/2025): Mixed conductive and sensorineural hearing loss, unilateral, left ear with restricted hearing on the contralateral side; Note: Date Diagnosed: 06/19/2021 4:39 PM (H90.A32) Sensorineural hearing loss (SNHL) of left ear Overview (01/13/2025): Sensorineural hearing loss, unilateral, left ear, with restricted hearing on the contralateral side; Note: Date Diagnosed: 06/19/2021 4:39 PM (H90.A22) Postmastoidectomy complication 06/19/2021 Overview (01/13/2025): Other disorders following mastoidectomy, right ear; Note: Date Diagnosed: 06/19/2021 4:39 PM (H95.191) Infertility, female 06/16/2021 Hearing loss of left ear 08/16/2020 Mixed conductive and sensori neural hearing loss of right ear with restricted hearing of left ear 08/16/2020 Chronic inflammation of mastoid cavity Overview (01/13/2025): Chronic inflammation of postmastoidectomy cavity, right ear; Note: Date Diagnosed: 06/10/2019 2:45 PM (H95.111) Contact with and (suspected) exposure to infections with a predominantly sexual mode of transmission 03/11/2019 Need for vaccination 03/11/2019 H/O syphilis 11/15/2018 Overview (01/13/2025): Ms. Nate Olivera States she was treated for one month at 12 years ago. She was not with current male partner at the time. 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) per patient bicillin 2.4 million IM x 3) Patient declines repeat treatment today, no record of prior history Nonimmune to hepatitis B virus 10/07/2018 Secondary dysmenorrhea 10/07/2018 Encounter for cervical Pap smear with pelvic exa m 10/07/2018 Encounter for preconception consultation 019 Obesity with body mass index 30 or greater 08/03 Encounters Date Type Department Care Team Description 01/30/2025 Orders Only [facility] [address] [place] [phone] Savannah Segovia MD Amenorrhea (Primary Dx) 01/30/[address] [address] Savannah Segovia MD Lab Orders 01/16/[address] [address] Savannah Segovia MD oct recall 01/13/2025 11:00 AM EDT Office Visit [facility] ADULT D[facility] [address] [place] [phone] Heydi Young DDS Encounter for dental examination (Primary Dx); Dental plaque 01/13/[address] [address] Savannah Segovia MD Referral 01/13/2025 Telephone [facility] [place] [address] Savannah Segovia MD Prior Authorization 01/10/2025 Travel 12/22/2024 Telephone [facility] [place] [address] Savannah Segovia MD Prior Authorization 12/20/2024 11:15 AM EDT Office Visit [facility] [place] [address] Savannah Segovia MD Infertility, female (Primary Dx); Obesity (BMI 30.0-34.9); Arm mass, right; Hypothyroidism, unspecified type; Obesity with body mass index 30 or greater; Health care maintenance; Bruxism 12/20/2024 Travel 12/19/2024 Telephone [facility] [place] [address] Savannah Segovia MD chart prep 12/15/2024 Results Follow-Up [facility] [place] [address] Savannah Segovia MD TSH, T4, Free, CBC auto differential, Additional followed-up results: 3 12/03/2024 Results Follow-Up [facility] [place] [address] Savannah Segovia MD US EXTREMITY NON-VASCULAR RIGHT LIMITED 12/02/2024 Orders Only [facility] [place] [address] Savannah Segovia MD 11/16/2024 10:00 AM EDT Office Visit [facility] ADULT D[facility] [address] [facility] [place] [address] Humberto Das Dental calculus (Primary Dx) 11/10/2024 Refill [facility] [place] [address] Johnie Lorenzo MD 11/09/2024 Telephone [facility] [place] [address] Savannah Segovia MD Nurse Triage from Last 3 Months Immunizations Immunization Administration Dates Next Due Hep B, adult 11/15/2018 INFLUENZA INJECTABLE QUADRIV ALANT CCIIV4 MDCK Multi-dose vial 03/11/2019 Influenza injectable quadriv alent preservative free 02/13/2021,03/10/2018,08/03/2017 Influenza, IIV3, injectable 03/11/2019 Influenza, seasonal, injecta ble, preservative free 03/24/2024 Pfizer Covid-19 Vaccine 12+ 03/24/2024 Tdap 08/03/2017 Family History Medical History Relation Name Comments Esophageal cancer Father Lymphoma Sister Relation Name Status Comments Father Sister Social History Tobacco Use Types Packs/Day Years Used Date Smoking Tobacco: Never Passive Smoke Exposure: Never Smokeless Tobacco: Never Tobacco Cessation:Counseling Given: Not Answered Comments:Started smoking 14 y of age and [...] Orientation Straight 04/07/2022 10 :35 AM EDT Last Filed Vital Signs Vital Sign Reading Time Taken Comments Blood Pressure 105/80 12/20/2024 11:31 AM EDT Pulse 78 12/20/2024 11:31 AM EDT Temperature 36.7 C (98.1 F) 12/20/2024 11:31 AM EDT Respiratory Rate 20 10/25/2024 9:25 AM EDT Oxygen Saturation 99% 12/20/2024 11:31 AM EDT Inhaled Oxygen Concentration - - Weight 92.8 kg (204 lb 9.6 oz) 12/20/2024 11:31 AM EDT Height 174 cm (5' 8.5 ) 10/25/2024 9:25 AM EDT Body Mass Index 30.66 10/25/2024 9:25 AM EDT Plan of Treatment Upcoming Encounters Date Type Department Care Team (Late st Contact Info) Description 02/01/2025 1:30 PM EDT Office Visit [facility] [address] [place] [phone] Heydi Young, MAYITO [address] [place] [phone] 03/23/2025 9:30 AM EDT Office Visit [facility] [address] [place] [phone] Savannah Segovia MD [address] [place] [address] Health Maintenance Due Date Last Done Comments Family Planning (PISQ) 1998 HPV Vaccines (1 - 3-dose series) 1998 Hepatitis B Vaccines (2 of 3 - 19+ 3-dose series) 12/13/2018 11/15/2018 Pap Smear 04/19/2024 04/19/2021 Influenza Vaccine (#1) 2025 , 02/13/2021, 03/11/2019, Additional history exists Dental Prophylaxis 05/19/2025 11/16/2024, 0 01/14/2024, 02/03/2023, Additional history exists Dental Oral Exam 07/17/2025 01/13/2025, , 08/08/2019, Additional history exists Alcohol/Substance Use Screening 10/25/2025 10/25/2024 Depression Screening 10/25/2025 10/25/2024, 10/26/19 Disability Screening 10/25/2025 10/25/2024 SDOH Screening 10/25/2025 10/25/2024 Tobacco Screening 01/13/2026 01/13/2025 Dental X-Ray: Bitewings 01/14/2026 01/14/20, 02/10/2024, 01/14/2024, Additional history exists Dental X-Ray: Full Mouth 02/04/2026 023, 08/08/2019, 12/24/2018 Cervical Cancer Screening 04/19/2026 HPV/Cotest 04/19/2026 04/19/2021 Mammogram 05/20/2026 05/20/2024 DTaP/Tdap/Td Vaccines (2 - Td or Tdap) 08/03/2027 08/03/2017 Lipid Panel 05/11/2029 05/11/2024, 02/07/2021 Zoster Vaccines (1 of 2) 2033 RSV Patients and Patients Aged 60 years or older (1 - 1-dose 75+ series) 2058 COVID-19 Vaccine Completed 03/24/2024, 11/2021, 09/28/2020, Additional history exists HIV Screening Completed 05/11/2024, 02/07/2021 Hepatitis C Screening Completed 05/11/2024, 021 HIB Vaccines Aged Out No longer eligi ble based on patient's age to complete this topic Hepatitis A Vaccines Aged Out No long er eligible based on patient's age to complete this topic IPV Vaccines Aged Out No longer eligi ble based on patient's age to complete this topic Meningococcal B Vaccine Aged Out No l onger eligible based on patient's age to complete this topic Meningococcal Vaccine Aged Out No tremaine monica eligible based on patient's age to complete this topic Pneumococcal Vaccine: Pediatrics (0 to 5 Years) and At-Risk Patients (6 to 49) Years Aged Out No longer eligible based on patient's age to complete this topic RSV under 20 months Aged Out No longe r eligible based on patient's age to complete this topic Rotavirus Vaccines Aged Out No longer eligible based on patient's age to complete this topic Procedures Procedure Name Priority Date/Time Associated Diagnosis Comments HCG, TOTAL, QN Routine 01/30/2025 3:25 PM EDT Amenorrhea T4, FREE Routine 01/30/2025 3:25 PM EDT Hypothyroidism, unspecified type TSH Routine 01/30/2025 3:25 PM EDT Hypothyroidism, unspecified type CASE PRESENTATION, DETAILED AND EXTENSIVE TREATMENT PLANNING Routine 01/13/2025 11:00 AM EDT Encounter for dental examination Dental plaque INTRAORAL - PERIAPICAL EACH ADDITIONAL RADIOGRAPHIC IMAGE Routine 01/13/2025 11:00 AM EDT Encounter for dental examination Dental plaque INTRAORAL - PERIAPICAL FIRST RADIOGRAPHIC IMAGE Routine 01/13/2025 11:00 AM EDT Encounter for dental examination Dental plaque BITEWINGS - 4 RADIOGRAPHIC IMAGES Routine 01/13/2025 11:00 AM EDT Encounter for dental examination Dental plaque PERIODIC ORAL EVALUATION - ESTABLISHED PATIENT Routine 01/13/2025 11:00 AM EDT Encounter for dental examination Dental plaque VITAMIN B12/FOLATE, SERUM PANEL Routine 12/15/2024 11:12 AM EDT Anemia, unspecified type FERRITIN Routine 12/15/2024 11:12 AM EDT Anemia, unspecified type IRON AND TOTAL IRON BINDING CAPACITY Routine 12/15/2024 11:12 AM EDT Anemia, unspecified type CBC WITH AUTO DIFFERENTIAL Routine 12/15/2024 11:12 AM EDT Anemia, unspecified type T4, FREE Routine 12/15/2024 11:12 AM EDT Hypothyroidism, unspecified type TSH Routine 12/15/2024 11:12 AM EDT Hypothyroidism, unspecified type US EXTREMITY NON-VASCULAR RIGHT LIMITED Routine 12/03/2024 8:26 AM EDT ORAL HYGIENE INSTRUCTIONS Routine 11/16/2024 10:00 AM EDT Full PROPHYLAXIS - ADULT Routine 11/16/2024 10:00 AM EDT CASE PRESENTATION, DETAILED AND EXTENSIVE TREATMENT PLANNING Routine 11/16/2024 10:00 AM EDT BI MAMMOGRAM SCREEN W DRISS W IMPLANTS BRAN Routine 05/20/2024 9:20 AM EST HEPATITIS C AB W/REFL TO HCV RNA, QN, PCR Routine 05/11/2024 11:08 AM EST Annual physical exam HIV 1/2 ANTIGEN/ANTIBODY, FOURTH GENERATION W/RFL Routine 05/11/2024 11:08 AM EST Annual physical exam LIPID PANEL, STANDARD Routine 05/11/2024 11:08 AM EST Annual physical exam INTRAORAL - COMPLETE SERIES OF RADIOGRAPHIC IMAGES Routine 02/03/2023 8:00 AM EDT THINPREP IMAGING PAP AND HPV MRNA E6/E7, WITH CT/NG, TRICHOMONAS Routine 04/19/2021 12:00 AM EST from Last 3 Months or Most Recently Relevant to Health Maintenance Results * hCG, Total, Quantitative (01/30/2025 3:25 PM EDT) HCG Quantitative <2 mIU/mL [facility] Comment:Weeks post LMP Appro ximate hCG(Last Menstrual Period) Range (mIU/ml)3 - 4 weeks 9 - 1304 - 5 weeks 75 - 2,6005 - 6 weeks 850 - 20,8006 - 7 weeks 4000 - 100,2007 - 12 weeks 11,500 - 289,99458 - 16 weeks 18,300 - 137,36149 - 29 weeks (2nd trimester) 1,400 - 53,62307 - 41 weeks (3rd trimester) 940 - 60,000The Foley B- hCG assay is used for the early detection ofpregnancy; it cannot be used to diagnose any conditionunrelated to . If a B-hCG level is not supportedby the clinical evidence, results should be confirmed by analternative method (qualitative urine hCG, for example). Blood Venous blood specimen / Unknown 01/30/2025 3:25 PM EDT 01/30/2025 4:05 PM EDT us Savannah Jones MD LAB BLOOD ORDERAB LES Final Result Performing Organization Address [facility] Co de Phone Number [facility] [address] [place] [phone] * TSH (01/30/2025 3:25 PM EDT) Only the most recent of2 resultswithin the time period is included. Thyroid Stimulating Hormone 1.93 0.32 - 4.0 uIU/mL [facility] Comment:TSH 3rd Generation ( [facility]) Blood Venous blood specimen / Unknown 01/30/2025 3:25 PM EDT 01/30/2025 4:05 PM EDT Savannah Jones MD LAB BLOOD ORDERAB LES Final Result Performing Organization Address [facility] Co de Phone Number [facility] [address] [place] [phone] * T4, Free (01/30/2025 3:25 PM EDT) Only the most recent of2 resultswithin the time period is included. Free T4 (Free Thyroxine) 0.83 0.71 - 1.85 ng/dL [facility] Blood Venous blood specimen / Unknown 01/30/2025 3:25 PM EDT 01/30/2025 4:05 PM EDT Savannah Jones MD LAB BLOOD ORDERAB LES Final Result Performing Organization Address [facility] Co de Phone Number [facility] [address] [place] [phone] * Vitamin B12 (Cobalamin) and Folate Panel, Serum (12/15/2024 11:12 AM EDT) Pathologist [facility] Vitamin B12 615 200 - 900 pg/mL [facility] Comment:NORMAL 200-900 PG/ML INDETERMINATE 160-199 PG/ML DEFICIENT < 160 PG/ML Folate 7.6 > or = 4.0 ng/mL [facility] Comment:Reference Values:> o r = 4.0 ng/mL< 4.0 ng/mL suggests folate deficiency Methotrexate, aminopterin and folinic acid(leucovorin) are chemotherapeutic agents whose molecularstructures are similar to folate; therefore, the Architectfolate assay cannot be used for patients using these drugs. Blood 12/15/2024 11:1 2 AM EDT 12/15/2024 2:19 PM EDT Savannah Jones MD LAB BLOOD ORDERAB LES Final Result [facility] [address] [place] [phone] * (ABNORMAL) CBC auto differential (12/15/2024 11:12 AM EDT) [facility] White Blood Count 5.5 4.8 - 10.8 X10*3/uL [facility] Red Blood Count 4.41 4.20 - 5.50 X10*6/uL [facility] Hemoglobin 11.4(L) 12.0 - 16.0 g/dl [facility] Hematocrit 34.6(L) 37.0 - 47.0 % [facility] Mean Corpuscular Volume 78.5(L) 80.0 - 98.0 fL [facility] Mean Corpuscular Hemoglobin 25.9(L) 27.0 - 33.0 pg [facility] Mean Corpuscular HGB Conc 32.9 31.0 - 35.0 g/dl [facility] Red Cell Distribution Width 15.0 11.0 - 16.0 % [facility] Platelet Count 279 160 - 400 X10*3/uL [facility] Mean Platelet Volume 10.8 9.4 - 12.3 fL [facility] Neutrophils Percent Auto 59.6 45 - 73 % [facility] Imm Gran Pct Auto 0.4 0.0 - 0.4 % [facility] Lymphocytes Percent Auto 27.7 20 - 40 % [facility] Monocytes Percent Auto 8.9 2 - 11 % [facility] Eosinophils Percent Auto 2.9 0 - 4 % [facility] Basophils Percent Auto 0.5 0 - 2 % [facility] NRBC Pct Auto 0.0 0.0 - 0.2 /100WBC [facility] Neutrophils Absolute Auto 3.3 2.0 - 8.3 x10*3/uL [facility] Imm Gran Abs Auto 0.02 0.00 - 0.03 X10*3/uL [facility] Lymphocytes Absolute Auto 1.5 1.2 - 4.9 X10*3/uL [facility] Monocytes Absolute Auto 0.5 0.1 - 1.2 X10*3/uL [facility] Eosinophils Absolute Auto 0.2 0.0 - 0.4 X10*3/uL [facility] Basophils Absolute Auto 0.0 0.0 - 0.2 X10*3/uL [facility] NRBC Abs Auto 0.000 0.0 - 0.012 X10*3/uL [facility] Blood Venous blood specimen / Unknown 12/15/2024 11:12 AM EDT 12/15/2024 2:19 PM EDT us Savannah Jones MD LAB BLOOD ORDERAB LES Final Result [facility] [address] [place] [phone] * Iron And Total Iron Binding Capacity (12/15/2024 11:12 AM EDT) Iron 85 30 - 160 mcg/dL [facility] Total Iron Binding Capacity 286 228 - 428 mcg/dL [facility] Percent Iron Saturation 30 15 - 50 % [facility] Unsaturated Iron Binding 201 ug/dL [facility] Blood Venous blood specimen / Unknown 12/15/2024 11:12 AM EDT 12/15/2024 2:19 PM EDT us Savannah Jones MD LAB BLOOD ORDERAB LES Final Result Performing Organization Address City/[facility]/ZIP Co de Phone Number [facility] [address] [place] [phone] * Ferritin (12/15/2024 11:12 AM EDT) Ferritin 25 10 - 250 ng/mL [facility] Blood Venous blood specimen / Unknown 12/15/2024 11:12 AM EDT 12/15/2024 2:19 PM EDT us Savannah Jones MD LAB BLOOD ORDERAB LES Final Result Performing Organization Address [facility] Co de Phone Number [facility] [address] [place] [phone] * US EXTREMITY NON-VASCULAR RIGHT LIMITED (12/03/2024 8:26 AM EDT) Anatomical Region Laterality Modality Ultrasound 12/03/2024 8:26 AM EDT Narrative 12/03/2024 8:27 AM EDT [facility] [place] [facility] [address] [place] [address] [place] [address] Ultrasound Report Signed Patient: Nate Olivera MR#: [id number] [birth year] : 1985 Acct:[id number] Age/Sex: 39 / F ADM Date: 12/02/24 Loc: HO.HMGCX Attending Dr: Savannah Jones MD Ordering Physician: Savannah Segovia MD Date of Service: 12/02/24 Procedure(s): US Extremity Nonvas Limited RT Accession Number(s): [id number] cc: Savannah Segovia MD CLINICAL HISTORY: MASS OF RIGHT ARM - ABOVE ELBOW Ultrasound extremity nonvascular right Comparison: None provided Findings: In the region of the patient's palpable abnormality there is a well-circumscribed homogeneously isoechoic mass measuring 2.9 x 3.1 x 1.5 cm that appears most consistent with a lipoma. No increased vascularity. IMPRESSION: 1. Palpable abnormality appears most consistent with lipoma. This document has been electronically signed by: Carly Mcrae MD on 12/03/2024 08:26:04 Dictated By: Carly Mcrae MD Signed By: <Electronically signed by Carly Mcrae MD in OV> 12/03/24825 DD/ 5 TD/TT: 12/03/24825 Electronic Instrument Trades Worker: Procedure Note Donotuseinterpreter, Image - 12/03/2024 [facility] [address] [place] [address] [place] [address] Ultrasound Report Signed Patient: Nate Olivera GMR#: [id number] [birth year] : 1985Acct:[id number] Age/Sex: 39 / FADM Date: 12/02/24 Loc: .HMGCX Attending Dr: Savannah Jones MD Ordering Physician: Savannah Segovia MD Date of Service: 12/02/24 Procedure(s): US Extremity Nonvas Limited RT Accession Number(s): [id number] cc: Savannah Segovia MD CLINICAL HISTORY: MASS OF RIGHT ARM - ABOVE ELBOW Ultrasound extremity nonvascular right Comparison: None provided Findings: In the region of the patient's palpable abnormality there is a well-circumscribed homogeneously isoechoic mass measuring 2.9 x 3.1 x 1.5 cm that appears most consistent with a lipoma. No increased vascularity. IMPRESSION: 1. Palpable abnormality appears most consistent with lipoma. This document has been electronically signed by: Carly Mcrae MD on 12/03/2024 08:26:04 Dictated By: Carly Mcrae MD Signed By: <Electronically signed by Carly Mcrae MD in OV> 12/03/24825 DD/ 5 TD/TT: 12/03/24825 Electronic Instrument Trades Worker: Savannah Jones MD [facility] [place] PROCEDURES Edited Result - Final * BI Mammogram Screen w/ Driss w/ Implants Bran (05/20/2024 9:20 AM EST) Anatomical Region Laterality Modality Mammography 05/20/2024 9:20 AM EST Narrative 05/27/2024 5:33 PM EST [facility] [address] [place], [place] [address] Mammography Report Signed Patient: Nate Olivera MR#: [id number] [birth year] : 1985 Acct:[id number] Age/Sex: 39 / F ADM Date: 05/20/24 Loc: HO.MAMMO Attending Dr: Savannah Jones MD Ordering Physician: Savannah Segovia MD Re sults: 2Benign Findings Date of Service: 05/20/24 Follow Up: 1 Year From Orig ina Mammogram Procedure(s): MM tomosynthesis screen imp BI Accession Number(s): [id number] cc: Savannah Segovia MD EXAMINATION: MM SCREENING DIGITAL BREAST TOMOSYNTHESIS, BILATERAL CLINICAL INFORMATION: Screening. Asymptomatic. COMPARISON: Mammography: Baseline. TECHNIQUE: Digital mammography is performed in craniocaudal and mediolateral oblique views along with computer-aided detection (CAD). Digital breast tomosynthesis is performed in implant-displaced craniocaudal and implant-displaced mediolateral oblique views along with computer-aided detection (CAD). FINDINGS: The breasts are heterogeneously dense, which may obscure small masses (ACR BI-RADS breast composition Category c). Bilateral retropectoral silicone implants are normal-appearing. There are no significant masses, abnormal calcifications, or other abnormalities. MM/MM tomosynthesis screen imp BI IMPRESSION: There are no significant changes from prior study. ASSESSMENT: BI-RADS BI-RADS 2 - Benign Findings RECOMMENDATION: Routine annual mammography screening. 1 year F/U This patient's information was entered into a reminder system with a target due date for their next mammogram. Electronically signed by: Margarita Guerrero DO 05/27/2024 05:30 PM EST Dictated By: Margarita Guerrero DO Signed By: <Electronically signed by Margarita Guerrero DO in OV> 05/27/24 1730 DD/ TD/TT: 05/20/24 0946 Electronic Instrument Trades Worker: Procedure Note Donotuseinterpreter, Image - 05/27/2024 [facility] [address] [place] [address] Mammography Report Signed Patient: Nate Olivera GMR#: [id number] [birth year] : 1985Acct:[id number] Age/Sex: 39 / FADM Date: 05/20/24 Loc: HO.MAMMO Attending Dr: Savannah Jones MD Ordering Physician: Savannah Segovia sults: 2Benign Findings Date of Service: 05/20/24Follow Up: 1 Year From Orig inal Mammogram Procedure(s): MM tomosynthesis screen imp BI Accession Number(s): [id number] cc: Savannah Segovia MD EXAMINATION: MM SCREENING DIGITAL BREAST TOMOSYNTHESIS, BILATERAL CLINICAL INFORMATION: Screening. Asymptomatic. COMPARISON: Mammography: Baseline. TECHNIQUE: Digital mammography is performed in craniocaudal and mediolateral oblique views along with computer-aided detection (CAD). Digital breast tomosynthesis is performed in implant-displaced craniocaudal and implant-displaced mediolateral oblique views along with computer-aided detection (CAD). FINDINGS: The breasts are heterogeneously dense, which may obscure small masses (ACR BI-RADS breast composition Category c). Bilateral retropectoral silicone implants are normal-appearing. There are no significant masses, abnormal calcifications, or other abnormalities. MM/MM tomosynthesis screen imp BI IMPRESSION: There are no significant changes from prior study. ASSESSMENT: BI-RADS BI-RADS 2 - Benign Findings RECOMMENDATION: Routine annual mammography screening. 1 year F/U This patient's information was entered into a reminder system with a target due date for their next mammogram. Electronically signed by: Margarita Guerrero DO 05/27/2024 05:30 PM EST RP Dictated By: Margarita Guerrero DO Signed By: <Electronically signed by Margarita Guerrero DO in OV> 05/27/24 1730 DD/ 0920 TD/TT: 05/20/24 0946 Electronic Instrument Trades Worker: us Savannah Jones MD IMG BI PROCEDURES Final Result * Hepatitis C Antibody with Reflex to HCV, RNA, Quantitative, Real-Time PCR (05/11/2024 11:08 AM EST) Hepatitis C Antibody Nonreactive Nonreactive [facility] Comment:Antibodies to HCV no t detected; does not exclude early acuteHCV infection. Blood Venous blood specimen / Unknown 05/11/2024 11:08 AM EST 05/11/2024 12:56 PM EST Savannah Jones MD LAB BLOOD ORDERAB LES Final Result [facility] [address] [place] [phone] * HIV-1/2 Antigen and Antibodies, Fourth Generation, with Reflexes (05/11/2024 11:08 AM EST) HIV AB/AG Nonreactive Nonreactive [facility] Comment:HIV-1 p24 Ag and/or HIV-1/HIV-2 Ab not detected.A test result that is nonreactive does not exclude thepossibility of exposure to or infection with HIV-1 and/orHIV-2. Nonreactive results in this assay for individualswith prior exposure to HIV-1 and/or HIV-2 may be due toantigen and antibody levels that are below the limit ofdetection of this assay.[facility] HIV Ag/Ab Combo assay result andsupplemental assay results should be interpreted inconjunction with the patient's clinical presentation,history and other laboratory results. If the results areinconsistent with clinical evidence, additional testing issuggested to confirm the result. Blood Venous blood specimen / Unknown 05/11/2024 11:08 AM EST 05/11/2024 12:56 PM EST us Savannah Jones MD LAB BLOOD ORDERAB LES Final Result Performing Organization Address [facility]/ZIP Co de Phone Number [facility] [address] [place] [address] [phone] * Lipid Panel, Standard (05/11/2024 11:08 AM EST) Triglycerides 53 <150 mg/dL [facility] Comment:Desirable Triglyceri de: less than 150 mg/dLBorderline High Triglyceride 150-199 mg/dLHigh Triglyceride: 200-499 mg/dLVery High Triglyceride: greater than or equal to 5OO mg/dL Cholesterol 148 <200 mg/dL [facility] Comment:Desirable Cholestero l: less than 200 mg/dLBorderline High Cholesterol: 200-239 mg/dLHigh Cholesterol: greater than 239 mg/dL LDL Cholesterol Calculated 89 <100 mg/dL [facility] Comment:Desirable LDL: less than 100 mg/dLNear Optimal/Above Optimal LDL: 110- 129 mg/dLBorderline High LDL: 130-159 mg/dLHigh LDL: 160-189 mg/dLVery High LDL: greater than or equal to 190 mg/dL HDL Cholesterol 49 >40 mg/dL [facility] Comment:Desirable HDL: great er than 40 mg/dL Note: This HDL assay may give artificially low results in patients with liver disease. Blood Venous blood specimen / Unknown 05/11/2024 11:08 AM EST 05/11/2024 12:56 PM EST us Savannah Jones MD LAB BLOOD ORDERAB LES Final Result Performing Organization Address City/[facility]/ZIP Co de Phone Number [facility] [address] [place] [address] [phone] * THINPREP TIS PAP AND HPV mRNA E6/E7, CT/NG, TRICH (04/19/2021 12:00 AM EST) Chlamydia trachomatis RNA, TMA, Urogenital NOT DETECTED NOT DETECTED [facility] Clinical Information: None given [facility] COMMENT SEE COMMENT [facility] Comment: The analytical performance characteristics of this assay, when used to test SurePath(TM) specimens have been determined by [employer]. The modifications have not been cleared or approved by the FDA. This assay has been validated pursuant to the CLIA regulations and is used for clinical purposes. For additional information, please refer to https://Worktopia.Zoeticx/faq/XVR496 (This link is being provided for information/ educational purposes only.) COMMENT SEE COMMENT [facility] Comment: EXPLANATORY NOTE: The Pap is a screening test for cervical cancer. It is not a diagnostic test and is subject to false negative and false positive results. It is most reliable when a satisfactory sample, regularly obtained, is submitted with relevant clinical findings and history, and when the Pap result is evaluated along with historic and current clinical information. COMMENT: SEE COMMENT [facility] Comment: This case could not be evaluated with computer assisted technology. The slide was manually screened according to routine procedures. Manager Training And Development: SEE COMMENT [facility] Comment: ALS, CT(ASCP) CT screening location: [place] [address] HPV nRNA E6/E7 Not Detected Not Detected [facility] Comment: Methodology: Appliance Service Representative-Mediated Amplification This assay detects E6/E7 viral messenger RNA (mRNA) from 14 high-risk HPV types (16,18,31,33,35,39,45,51,52,56,58,59,66,68). The analytical performance characteristics of this assay have been determined by [employer]. The modifications have not been cleared or approved by the FDA. This assay has been validated pursuant to the CLIA regulations and is used for clinical purposes. For additional information, please refer to http://education.Zoeticx/faq/VPQ180r8 (This link if provided for information/ educational purposes only.) Interpretation/Re sult: Negative for intraepithelial lesion or malignancy. [facility] LMP: NONE GIVEN [facility] Neisseria gonorrhoeae RNA, TMA, Urogenital NOT DETECTED NOT DETECTED [facility] Prev. BX: NONE GIVEN [facility] Prev. PAP: NONE GIVEN [facility] Review Manager Training And Development: SEE COMMENT [facility] Comment: NSS, CT(ASCP) CT screening location: [place] [address] SOURCE: None given [facility] Statement Of Adequacy: SEE COMMENT [facility] Comment: Satisfactory for evaluation. Endocervical/transformation zone component present. Age and/or menstrual status not provided Trichomonas vaginalis, QL, TMA, PAP Vial NOT DETECTED NOT DETECTED [facility] Comment: The analytical performance characteristics of this assay have been determined by [employer]. The modifications have not been cleared or approved by the FDA. This assay has been validated pursuant to the CLIA regulations and is used for clinical purposes. For additional information, please refer to http://education.Zoeticx/ faq/Trichomonastma (This link is being provided for information/ educational purposes only.) 04/19/2021 Jasmyn Bang NP LAB PATHOLOGY ORDERABLES Final Result [facility] [address] from Last 3 Months or Most Recently Relevant to Health Maintenance Insurance [facility] ADULT DENTAL - HSN FULL (MEDICAID) DENTAL - [facility] Care Teams Steel Spar Operator Relationship Specialty Start Date End Date Savannah Segovia MD [address] [place] [address] [phone] PCP - General Internal Medicine 02/16/23
--- OUTSIDE RECORDS SUMMARY | 2025-01-30 17:00 | XMS_ITS | Encounter Summary ---
Author Organization [facility] Address [address] [place] [address] Care Team Providers Care Music Video Producer Name Role Phone JoshuaerinnKelly FINAL FINISHER FORGING DIES-C Primary Care Provider U thais Reason for Visit * Reason Comments Office Visit: Converted Data Conversion Encounter Details Date Type Department Care Team (Late st Contact Info) Description 08/14/2020 Dental Interim Note [facility] Dental [address] [facility], [address] [place] [phone] Default, [facility] Provider [place] Social History Tobacco Use Types Packs/Day Years [...] as of this encounter Plan of Treatment Scheduled Orders Name Type Priority Associated Diagnoses Order Schedule PRELIMINARY IMPRESSIONS Dental Procedures Routine 1 Occurrences starting 08/09/2020 FINAL IMPRESSIONS Dental Procedures Routine 1 Occurrences starting 08/09/2020 OCCLUSAL GUARD - SOFT APPLIANCE, FULL ARCH Dental Procedures Routine 1 Occurrences starting 08/09/2020 documented as of this encounter Procedures Procedure Name Priority Date/Time Associated Diagnosis Comments TREATMENT PLAN COMPLETION PHASE 1 Routine 10/23/2017 3:00 AM EDT 4 DO RESIN-BASED COMPOSITE - TWO SURFACES POSTERIOR Routine 10/23/2017 3:00 AM EDT 13 MOD RESIN-BASED COMPOSITE - THREE SURFACES POSTERIOR Routine 09/16/2017 3:00 AM EDT 14 O RESIN-BASED COMPOSITE - ONE SURFACE POSTERIOR Routine 09/16/2017 3:00 AM EDT ORAL HYGIENE INSTRUCTIONS Routine 2017 3:00 AM EDT PROPHYLAXIS - ADULT Routine 09/16/2017 3 :00 AM EDT CARIES RISK ASSESSMENT & DOC FINDING HIGH RISK Routine 08/11/2017 3:00 AM EST 19 DOBL RESIN COMPOS - FOUR OR MORE SURFACES POSTERIOR Routine 08/11/2017 3:00 AM EST 21 MOD RESIN-BASED COMPOSITE - THREE SURFACES POSTERIOR Routine 08/11/2017 3:00 AM EST 30 DO RESIN-BASED COMPOSITE - TWO SURFACES POSTERIOR Routine 08/11/2017 3:00 AM EST 14 MO RESIN-BASED COMPOSITE - TWO SURFACES POSTERIOR Routine 08/11/2017 3:00 AM EST 15 MO RESIN-BASED COMPOSITE - TWO SURFACES POSTERIOR Routine 08/11/2017 3:00 AM EST 2 O RESIN-BASED COMPOSITE - ONE SURFACE POSTERIOR Routine 08/11/2017 3:00 AM EST 13 O RESIN-BASED COMPOSITE - ONE SURFACE POSTERIOR Routine 08/11/2017 3:00 AM EST 31 O RESIN-BASED COMPOSITE - ONE SURFACE POSTERIOR Routine 08/11/2017 3:00 AM EST 3 O RESIN-BASED COMPOSITE - ONE SURFACE POSTERIOR Routine 08/11/2017 3:00 AM EST 18 O RESIN-BASED COMPOSITE - ONE SURFACE POSTERIOR Routine 08/11/2017 3:00 AM EST 20 O RESIN-BASED COMPOSITE - ONE SURFACE POSTERIOR Routine 08/11/2017 3:00 AM EST UNSPECIFIED PERIODONTAL PROCEDURE BY REPORT Routine 08/11/2017 3:00 AM EST 19 ENDODONTIC THERAPY MOLAR TOOTH Routine 08/11/2017 3:00 AM EST 30 ENDODONTIC THERAPY MOLAR TOOTH Routine 08/11/2017 3:00 AM EST 21 ENDODONTIC THERAPY PREMOLAR TOOTH Routine 08/11/2017 3:00 AM EST 7 L RESIN-BASED COMPOSITE ONE SURFACE ANTERIOR Routine 08/11/2017 3:00 AM EST 10 L RESIN-BASED COMPOSITE ONE SURFACE ANTERIOR Routine 08/11/2017 3:00 AM EST INTRAORAL - COMP SERIES OF RADIOGRAPHIC IMAGES Routine 08/11/2017 3:00 AM EST COMP ORAL EVALUATION - NEW/ESTABLISHED PATIENT Routine 08/11/2017 3:00 AM EST documented in this encounter Visit Diagnoses Not on filedocumented in this encounter Care Teams Music Video Producer Relationship Specialty Start Date End Date Kelly Kirby, FINAL FINISHER FORGING DIES-C PCP - General 08/10/20 documented as of this encounter
--- OUTSIDE RECORDS SUMMARY | 2025-01-30 17:00 | XMS_ITS | Encounter Summary ---
Author Organization [employer] Address [address] [place] [address] [place] [address] Care Team Providers Care Cable Operator Name Role Phone Savannah Segovia MD Primary Care Pro vider Encounter Details Date Type Department Care Team (Late st Contact Info) Description 01/30/2025 Orders Only [facility] [address] [place] [phone] Savannah Segovia MD [address] [place] [address] Amenorrhea (Primary Dx) Social History Tobacco Use Types Packs/Day Years [...] your housing situation today? I have leonid sing 10/25/[address] you li [...] Description 02/01/2025 1:30 PM EDT Office Visit [facility] ADULT DENTAL [address] [place] [phone] Derek-Heydi Cagle, DDS [address] [place] [phone] 03/23/2025 9:30 AM EDT Office Visit [facility] [address] [place] [phone] Savannah Segovia MD [address] [place], [place] [phone] documented as of this encounter Procedures Procedure Name Priority Date/Time Associated Diagnosis Comments HCG, TOTAL, QN Routine 01/30/2025 3:25 PM EDT Amenorrhea documented in this encounter Results * hCG, Total, Quantitative (01/30/2025 3:25 PM EDT) HCG Quantitative <2 mIU/mL [facility] Comment:Weeks post LMP Appro ximate hCG(Last Menstrual Period) Range (mIU/ml)3 - 4 weeks 9 - 1304 - 5 weeks 75 - 2,6005 - 6 weeks 850 - 20,8006 - 7 weeks 4000 - 100,2007 - 12 weeks 11,500 - 289,10530 - 16 weeks 18,300 - 137,49418 - 29 weeks (2nd trimester) 1,400 - 53,86305 - 41 weeks (3rd trimester) 940 - [...] MD LAB BLOOD ORDERAB LES Final Result [facility] [address] [place] [address] [phone] documented in this encounter Visit Diagnoses Diagnosis Amenorrhea- Primary Absence of menstruation documented in this encounter Additional Health Concerns Assessment Noted Time PHQ-9 Depression Total Score: 0 10/26/19 25 9:26 AM EDT documented as of this encounter Care Teams Cable Operator Relationship Specialty Start Date End Date Savannah Segovia MD [address] [place] [address] PCP - General Internal Medicine 02/16/23 documented as of this encounter
--- OUTSIDE RECORDS SUMMARY | 2025-01-30 17:01 | XMS_ITS | Encounter Summary ---
Author Organization [employer] Address [address] [place] [address] [address] [place] [address] Care Team Providers Care Banking Supervisor Name Role Phone Oscar Dhaliwal Primary Care Provider Unavail able Savannah Segovia MD Primary Care Pro vider Reason for Visit * Reason Comments Med Refill Encounter Details Date Type Department Care Team (Late st Contact Info) Description 01/13/2023 Refill [facility] [address] [place] [address] Aramis Arreguin MD [address] [place] [address] Vaginal itching Social History Tobacco Use Types Packs/Day Years [...] Encounters Date Type Department Care Team (Late Contact Info) Description 02/01/2025 1:30 PM EDT Office Visit [facility] ADULT DENTAL [address] [place] [address] Heydi Young DDS [address] [place] [address] 03/23/2025 9:30 AM EDT Office Visit [facility] MEDICINE [address] [place] [address] Savannah Segovia MD [address] [place], [place] [phone] documented as of this encounter Visit Diagnoses Diagnosis Vaginal itching Pruritus of genital organs documented in this encounter Care Teams Banking Supervisor Relationship Specialty Start Date End Date Oscar Dhaliwal AGNP PCP - General Family Medicine 12/11/22 02/15/23 Savannah Segovia MD [address] [place] [address] [phone] PCP - General Internal Medicine 02/16/23 documented as of this encounter
--- OUTSIDE RECORDS SUMMARY | 2025-01-30 17:01 | XMS_ITS | Encounter Summary ---
Author Organization [employer] Address [address] [place] [address] Care Team Providers Care Product Marketing Director Name Role Phone Mat Maria Isabelaurea QUEEN Primary Care Provider Oscar Talavera Primary Care Provider Unavail able Savannah Segovia MD Primary Care Pro vider Encounter Details Date Type Department Care Team (Latest Contact Info) Description 04/14/2019 Abstract [facility] Dental, Provider, DDS Social History Tobacco Use Types Packs/Day Years [...] Upcoming Encounters Date Type Department Care Team ( st Contact Info) Description 02/01/2025 1:30 PM EDT Office Visit [facility] ADULT DENTAL [address] [place] [phone] Reed-Cagle, Heydi, DDS [address] [place] [address] 03/23/2025 9:30 AM EDT Office Visit [facility] MED[facility] [address] [place] [phone] Savannah Segovia MD [address] [place] [address] documented as of this encounter Visit Diagnoses Not on filedocumented in this encounter Care Teams Product Marketing Director Relationship Specialty Start Date End Date Maria Isabel Rivero FNP PCP - General Family Medicine 01/31/22 11/07/22 Oscar Dhaliwal AGNP PCP - General Family Medicine 12/11/22 02/15/23 Savannah Segovia MD [address] [place] [phone] PCP - General Internal Medicine 02/16/23 documented as of this encounter
== END 2025-01-30 15:21 | disposition home or self-care (01) ==
LOC: HO.HHCL 15:20
PROVIDERS: PCP Student in an Organized Health Care Education/Training Program; Visit Provider Student in an Organized Health Care Education/Training Program
DX: E03.9 Hypothyroidism, unspecified (principal); N91.2 Amenorrhea, unspecified; Z32.02 Encounter for pregnancy test, result negative
CPT/HCPCS: 36415; 84439; 84443; 84702

== ENCOUNTER 2025-03-31 10:39 | Outpatient (AMB) | payer BC, SELFPAY ==
--- NOTE | 2025-03-31 10:41 | MHC.OFFVIS ---
Vital Signs 03/31/25 10:55 Height 5 ft 11 in Weight 196 lb BMI 27.3 BP 124/56 L Blood Pressure Location Rt brachial Position Sitting Pulse 76 Intake Visit Reasons: arm mass Intake Note: Patient referred by pcp Dr. Sreekanth Jones for growth on Rt upper arm. Present for 6mo. Patient c/o: pain that radiates down arm. Tingling sensation on a couple fingers. No hx of trauma. Imaging: Rt extremity US: 12/03/24 Quality Officer Required: Yes Information Interpreted: clinical only (Jes #[id number]) Accompanied by: Self / Same As Patient Allergies pollen extracts Allergy (Mild, Verified 03/31/25 10:47) Unknown Medication List - Last Reconciled 03/31/25 by Dm Tubbs MD cetirizine 10 mg PO DAILY PRN epinephrine (EpiPen) 0.3 mg IM Q10M PRN levothyroxine (Synthroid) 50 mcg PO DAILY HPI Comments Details: 39-year-old female patient presenting for evaluation of a soft tissue lump located in the right upper her arm. This has been present for least 6 months and is gradually increasing in size. The patient reports tingling pain from the shoulder down to the fingers and feels it may be related to this lump. She denies a history of trauma or surgery in this location. Workup with an ultrasound of the extremities revealed a well-circumscribed homogeneously isoechoic mass measuring 2.9 x 3.1 x 1.5 cm that appears most consistent with a lipoma. Patient is requesting excision of this lump. [facility] Medical History Appendicitis History of cholesteatoma Surgical History Hx of mastoidectomy Social History Alcohol intake: never Patient Tobacco Use Status: Never used Tobacco Review of Systems Const All systems reviewed & are unremarkable except as noted in HPI and below Physical Exam Vital Signs: Last Vital Signs Pulse 76 03/31/25 10:55 BP 124/56 L 03/31/25 10:55 BMI result Body Mass Index 27.3 Const General: cooperative and no acute distress Nutritional Appearance: well nourished Orientation/consciousness: patient oriented x3 Limitations: no limitations HEENT Head: Yes normocephalic and Yes atraumatic Ears: hearing grossly normal bilaterally Resp Effort & Inspection: normal respiratory effort, no audible wheezes, no cough and no respiratory distress Cardio Jugular venous distension: no JVD GI Inspection: Yes normal to inspection Skin Other: Warm, dry, no rash Neuro General: patient oriented x3 Extrem General: Yes no clubbing, cyanosis or edema Shoulder/upper arm images:  1. 4 x 3 cm soft tissue mass mobile within the subcutaneous tissue with no overlying skin changes most consistent with a lipoma. Assessment & Plan Assessment & Plan (1) Lipoma of arm: Code(s): D17.20 - Benign lipomatous neoplasm of skin and subcutaneous tissue of unspecified limb Category: Medical Qualifiers: Laterality: right Qualified Code(s): D17.21 - Benign lipomatous neoplasm of skin and subcutaneous tissue of right arm Plan 39-year-old female patient presenting with a soft tissue mass located in the upper right arm measuring approximately 4 cm in diameter. Patient reports symptoms in the right arm which she feels may be related to this lipoma. Although it is hard to tell if the lipoma is causing all the symptoms, it is easy enough to remove and seems to be reasonable to proceed with an excision. I reviewed the procedure, risks, and alternatives in detail and she consents to excision of the right arm lipoma which will be performed as a office based procedure under local anesthesia. Coding Level of Care Code New Pt Level 4 (31012) Diagnoses Lipoma of right upper extremity D17.21 Laterality: right
[2025-03-31 10:55] VITALS: BP 124/56; PULSE 76; BMI 27.3
--- OUTSIDE RECORDS SUMMARY | 2025-03-31 12:17 | XMS_ITS | Clinical Summary ---
Author Organization [facility] Address [address] [place] [address] Care Team Providers Care Structural Technician Name Role Phone JoshuadanyaKelly ty TELETYPE CLERK-C Primary Care Provider Cheri plascencia Source Comments [...] of Treatment Not on file Care Teams Structural Technician Relationship Specialty Start Date End Date Kelly Kirby, TELETYPE CLERK-C PCP - General 08/10/20
--- OUTSIDE RECORDS SUMMARY | 2025-03-31 12:17 | XMS_ITS | Encounter Summary ---
Author Organization [employer] Address [address] [place] [address] Care Team Providers Care Leaflet Or Newspaper Deliverer Name Role Phone Maria Isabel Rivero Primary Care Provider Oscar Talavera Primary Care Provider Unavail able Savannah Segovia MD Primary Care Pro vider Encounter Details Date Type Department Care Team (Latest Contact Info) Description 04/14/2019 Abstract [facility] CON[facility] Dental, Provider, DDS Social History [...] Care Team ( st Contact Info) Description 05/25/2025 8:45 AM EST Office Visit [facility] ADULT DENTAL [address] [place] [address] Valentine, Laila [address] [place] [address] documented as of this encounter Visit Diagnoses Not on filedocumented in this encounter Care Teams Leaflet Or Newspaper Deliverer Relationship Specialty Start Date End Date Maria Isabel Rivero FNP PCP - General Family Medicine 01/31/22 11/07/22 Oscar Dhaliwal AGNP PCP - General Family Medicine 12/11/22 02/15/23 Savannah Segovia MD [address] [place] [phone] PCP - General Internal Medicine 02/16/23 documented as of this encounter
--- OUTSIDE RECORDS SUMMARY | 2025-03-31 12:17 | XMS_ITS | Clinical Summary ---
Author Organization [employer] Address [address] [place] [address] 7t [place] [address] Care Team Providers Care Bleaching Machine Operator Name Role Phone Savannah Segovia MD Primary Care Pro vider Allergies No known active allergies Medications cetirizine (ZyrTEC) 10 MG tablet Take 10 mg by mouth. 1 Active EPINEPHrine (Epipen) 0.3 MG/0.3ML injection syringe INJECT 1 PEN INJECTOR A SINGLE DOSE NEEDED Active Multiple Vitamin (multivitamin) tablet Take 1 tablet by mouth Once per day. 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 [address] [place] [address] Heydi Young DDS Tooth sensitivity to cold (Primary Dx); Localized gingival recession 03/23/[address] [address] Savannah Segovia MD No Show 03/22/[address] [address] Savannah Segovia MD CHART PREP 03/20/2025 8:30 AM EDT Office Visit [facility] [address] [place] [address] Heydi Young DDS Encounter for dental examination (Primary Dx); Full coverage crown needed for root canal-treated tooth 03/16/2025 Patient Outreach [facility] [address] [place] [phone] Savannah Segovia MD Pre-visit Planning (Pre-visit planning - unable to [facility], Mailbox full. ) 03/02/2025 8:00 AM EDT Office Visit [facility] [address] [facility] [place] [address] Reed-Cagle, Heydi, DDS Full coverage crown needed for root canal-treated tooth (Primary Dx) 02/10/2025 Orders Only [facility] [address] [place] [address] Savannah Segovia MD Infertility, female (Primary Dx) 02/09/2025 Refill [facility] [address] [place] [address] Kezia Concepcion MD 02/01/2025 1:30 PM EDT Office Visit [facility] 230 [place] [address] Reed-CaglePravin toledofemia, DDS 02/01/[address] [address] Savannah Segovia MD Referral 02/01/[address] [address] Savannah Segovia MD Prior Authorization 02/01/2025 Travel 01/30/2025 Results Follow-Up [address] [address] Savannah Segovia MD TSH, T4, Free 01/30/2025 Results Follow-Up [address] [address] Savannah Segovia MD hCG, Total, Quantitative 01/30/2025 Orders Only [address] [address] Savannah Segovia MD Amenorrhea (Primary Dx) 01/30/[address] [address] Savannah Segovia MD Lab Orders 01/16/[address] [facility] [place] [address] Savannah Segovia MD oct recall 01/13/2025 11:00 AM EDT Office Visit [facility] [address] [facility] [place] [address] Heydi Young DDS Encounter for dental examination (Primary Dx); Dental plaque 01/13/2025 Telephone [facility] [address] [place] [address] Savannah Segovia MD Referral 01/13/2025 Telephone [facility] [address] [place] [address] Savannah Segovia MD Prior Authorization 01/10/2025 Travel from Last 3 Months Immunizations Immunization Administration [...] the past 12 months, has t he [employer], gas, oil or water company threatened to [...] Sign Reading Time Taken Comments Blood Pressure 102/68 03/24/2025 8:13 AM EDT Pulse 78 12/20/2024 11:31 AM [...] Care Team (Late st Contact Info) Description 05/25/2025 8:45 AM EST Office Visit [facility] [address] [place] [address] Valentine, Laila [address] [place] [address] Health Maintenance Due Date Last Done Comments [...] Screening 10/25/2025 10/25/2024 SDOH Screening 10/25/2025 10/25/2024 Dental X-Ray: Full Mouth 02/04/2026 023, 08/08/2019, 12/24/2018 Dental X-Ray: Bitewings 03/21/2026 03/20/20 25, 01/13/2025, 02/10/2024, Additional history exists Tobacco Screening 03/24/2026 03/24/2025 Cervical Cancer Screening 04/19/2026 HPV/Cotest 04/19/2026 04/19/2021 [...] Procedure Name Priority Date/Time Associated Diagnosis Comments CASE PRESENTATION, DETAILED AND EXTENSIVE TREATMENT PLANNING Routine 03/24/2025 8:00 AM EDT Tooth sensitivity to cold Localized gingival recession 5 BB(V) RESIN-BASED COMPOSITE - 1 SURF, POSTERIOR Routine 03/24/2025 8:00 AM EDT Tooth sensitivity to cold Localized gingival recession CASE PRESENTATION, DETAILED AND EXTENSIVE TREATMENT PLANNING Routine 03/20/2025 8:30 AM EDT Encounter for dental examination Full coverage crown needed for root canal-treated tooth INTRAORAL - PERIAPICAL EACH ADDITIONAL RADIOGRAPHIC IMAGE Routine 03/20/2025 8:30 AM EDT Encounter for dental examination Full coverage crown needed for root canal-treated tooth INTRAORAL - PERIAPICAL FIRST RADIOGRAPHIC IMAGE Routine 03/20/2025 8:30 AM EDT Encounter for dental examination Full coverage crown needed for root canal-treated tooth BITEWINGS - 2 RADIOGRAPHIC IMAGES Routine 03/20/2025 8:30 AM EDT Encounter for dental examination Full coverage crown needed for root canal-treated tooth 21 CROWN - PORCELAIN/CERAMIC Routine 03/20/2025 8:30 AM EDT Encounter for dental examination Full coverage crown needed for root canal-treated tooth CROWN PREP Routine 03/02/2025 8:00 AM EDT NO CHARGE PROCEDURE Routine 02/01/2025 1 :30 PM EDT HCG, TOTAL, QN Routine 01/30/2025 3:25 PM [...] EDT Encounter for dental examination Dental plaque Full PROPHYLAXIS - ADULT Routine 11/16/2024 10:00 AM EDT BI MAMMOGRAM [...] 3:25 PM EDT) HCG Quantitative <2 mIU/mL [facility] Comment:Weeks post LMP Appro ximate hCG(Last Menstrual Period) Range (mIU/ml)3 - 4 weeks 9 - 1304 - 5 weeks 75 - 2,6005 - 6 weeks 850 - 20,8006 - 7 weeks 4000 - 100,2007 - 12 weeks 11,500 - 289,22616 - 16 weeks 18,300 - 137,29345 - 29 weeks (2nd trimester) 1,400 - 53,54287 - 41 weeks (3rd trimester) 940 - [...] ORDERAB LES Final Result Performing Organization Address City/[facility]/ZIP Co de Phone Number [facility] [address] [place] [phone] * TSH (01/30/2025 3:25 PM EDT) Thyroid Stimulating Hormone 1.93 0.32 - 4.0 uIU/mL [facility] Comment:TSH 3rd Generation ( [facility]) Blood Venous blood specimen / Unknown 01/30/2025 3:25 PM EDT 01/30/2025 4:05 PM EDT us Savannah Jones MD LAB BLOOD ORDERAB LES Final Result Performing Organization Address City/[facility]/ZIP Co de Phone Number [facility] [address] [place] [phone] * T4, Free (01/30/2025 3:25 PM EDT) Free T4 (Free Thyroxine) 0.83 0.71 - 1.85 ng/dL [facility] Blood Venous blood specimen / Unknown 01/30/2025 3:25 PM EDT 01/30/2025 4:05 PM EDT us Savannah Jones MD LAB BLOOD ORDERAB LES Final Result [facility] [address] [place] [address] [phone] * BI Mammogram Screen w/ Driss w/ Implants Bran (05/20/2024 9:20 AM EST) Anatomical Region Laterality Modality Mammography 05/20/2024 9:20 AM EST Narrative 05/27/2024 5:33 PM EST [facility] [address] [place] [address] Mammography Report Signed Patient: Nate Olivera MR#: [id number] [birth year] : 1985 Acct:[id number] Age/Sex: 39 / F ADM Date: 05/20/24 Loc: HO.MAMMO Attending Dr: Savannah Jones MD Ordering Physician: Savannah Segovia MD Re sults: 2Benign Findings Date of Service: 05/20/24 Follow Up: 1 Year From Orig ina Mammogram Procedure(s): MM tomosynthesis screen imp BI Accession Number(s): [id number] cc: Savannah Segovia MD EXAMINATION: MM SCREENING [...] Guerrero DO in OV> 05/27/24 1730 DD/ 9 TD/TT: 05/20/24 0946 Instructor Dancing: Procedure Note Donotuseinterpreter, Image - 05/27/20[facility] [address] [place], [place] [address] Mammography Report Signed Patient: Nate Olivera GMR#: [id number] 20 : 1985Acct:[id number] Age/Sex: 39 / FADM Date: 05/20/24 Loc: HO.MAMMO Attending Dr: Savannah Jones MD Ordering Physician: Savannah Segovia sults: 2Benign Findings Date of Service: 05/20/24Follow Up: 1 Year From Orig inal Mammogram Procedure(s): MM tomosynthesis screen imp BI Accession Number(s): [id number] cc: Savannah Segovia MD EXAMINATION: MM SCREENING [...] 05/27/24 1730 DD/ 0920 TD/TT: 05/20/24 0946 Instructor Dancing: Savannah Jones MD IMG BI PROCEDURES Final Result * Hepatitis C Antibody with Reflex to HCV, RNA, Quantitative, Real-Time PCR (05/11/2024 11:08 AM EST) Pathologist [facility] Hepatitis C Antibody Nonreactive Nonreactive [facility] Comment:Antibodies to HCV no t detected; does not exclude early acuteHCV infection. Blood Venous blood specimen / Unknown 05/11/2024 11:08 AM EST 05/11/2024 12:56 PM EST Savannah Jones MD LAB BLOOD ORDERAB LES Final Result [facility] [address] [place] [phone] * HIV-1/2 Antigen and Antibodies, Fourth Generation, with Reflexes (05/11/2024 11:08 AM EST) HIV AB/AG Nonreactive Nonreactive [facility] Comment:HIV-1 p24 Ag and/or HIV-1/HIV-2 Ab not detected.A test result that is nonreactive does not exclude thepossibility of exposure to or infection with HIV-1 and/orHIV-2. Nonreactive results in this assay for individualswith prior exposure to HIV-1 and/or HIV-2 may be due toantigen and antibody levels that are below the limit ofdetection of this assay.The Re.Mu HIV Ag/Ab Combo assay result andsupplemental assay results should be interpreted inconjunction with the patient's clinical presentation,history and other laboratory results. If the results areinconsistent with clinical evidence, additional testing issuggested to confirm the result. Blood Venous blood specimen / Unknown 05/11/2024 11:08 AM EST 05/11/2024 12:56 PM EST Savannah Jones MD LAB BLOOD ORDERAB LES Final Result Performing Organization Address City/[facility]/ZIP Co de Phone Number [facility] [address] [place] [phone] * Lipid Panel, Standard (05/11/2024 11:08 AM EST) Triglycerides 53 <150 mg/dL [facility] Comment:Desirable Triglyceri de: less than 150 mg/dLBorderline High Triglyceride 150-199 mg/dLHigh Triglyceride: 200-499 mg/dLVery High Triglyceride: greater than or equal to 5OO mg/dL Cholesterol 148 <200 mg/dL [facility] Comment:Desirable Cholestero l: less than 200 mg/dLBorderline High Cholesterol: 200-239 mg/dLHigh Cholesterol: greater than 239 mg/dL LDL Cholesterol Calculated 89 <100 mg/dL [facility] Comment:Desirable LDL: less than 100 mg/dLNear Optimal/Above Optimal LDL: 110- 129 mg/dLBorderline High LDL: 130-159 mg/dLHigh LDL: 160-189 mg/dLVery High LDL: greater than or equal to 190 mg/dL HDL Cholesterol 49 >40 mg/dL [facility] Comment:Desirable HDL: great er than 40 mg/dL Note: This HDL assay may give artificially low results in patients with liver disease. Blood Venous blood specimen / Unknown 05/11/2024 11:08 AM EST 05/11/2024 12:56 PM EST Savannah Jones MD LAB BLOOD ORDERAB LES Final Result Performing Organization Address City/[facility]/ZIP Co de Phone Number [facility] [address] [place] [phone] * THINPREP TIS PAP AND HPV mRNA E6/E7, CT/NG, TRICH (04/19/2021 12:00 AM EST) Chlamydia trachomatis RNA, TMA, Urogenital NOT DETECTED NOT DETECTED [facility] Clinical Information: None given [facility] COMMENT SEE COMMENT [facility] Comment: The analytical performance characteristics of this assay, when used to test SurePath(TM) specimens have been determined by [employer]. The modifications have not been cleared or approved by the FDA. This assay has been validated pursuant to the CLIA regulations and is used for clinical purposes. For additional information, please refer to https://education.[employer]/faq/VKR465 (This link is being provided for information/ [...] was manually screened according to routine procedures. Lumber Piler Operator: SEE COMMENT [facility] Comment: ALS CT(ASCP) CT screening location: [place] [address] HPV nRNA E6/E7 Not Detected Not Detected [facility] Comment: Methodology: Fur Plucker-Mediated Amplification This assay detects E6/E7 viral messenger RNA (mRNA) from 14 high-risk HPV types (16,18,31,33,35,39,45,51,52,56,58,59,66,68). The analytical performance characteristics of this assay have been determined by [employer]. The modifications have not been cleared or approved by the FDA. This assay has been validated pursuant to the CLIA regulations and is used for clinical purposes. For additional information, please refer to http://education.[employer].MedWhat/faq/MGH598w3 (This link if provided for information/ educational purposes only.) Interpretation/Re sult: Negative for intraepithelial lesion or malignancy. [facility] LMP: NONE GIVEN [facility] Neisseria gonorrhoeae RNA, TMA, Urogenital NOT DETECTED NOT DETECTED [facility] Prev. BX: NONE [facility]IV[facility] Prev. PAP: NONE [facility]IV[facility] Review Lumber Piler Operator: SEE COMMENT [facility] Comment: NSS, CT(ASCP) CT screening location: [place] [address] SOURCE: None given [facility] Statement Of Adequacy: SEE COMMENT [facility] Comment: Satisfactory for evaluation. Endocervical/transformation zone component present. Age and/or menstrual status not provided Trichomonas vaginalis, QL, TMA, PAP Vial NOT DETECTED NOT DETECTED [facility] Comment: The analytical performance characteristics of this assay have been determined by [employer]. The modifications have not been cleared or approved by the FDA. This assay has been validated pursuant to the CLIA regulations and is used for clinical purposes. For additional information, please refer to http://education.[employer]/ faq/Trichomonastma (This link is being provided for information/ educational purposes only.) 04/19/2021 us Jasmyn Bang NP LAB PATHOLOGY ORDERABLES Final Result [facility] [address] from Last 3 Months or Most Recently Relevant to Health Maintenance Insurance [facility] HMO DENTAL-[facility] MEDICAID LIMITED ADULT DENTAL - [facility] FULL (MEDICAID) DENTAL - [facility] Care Teams Bleaching Machine Operator Relationship Specialty Start Date End Date Savannah Segovia MD [address] [place] [phone] PCP - General Internal Medicine 02/16/23
--- OUTSIDE RECORDS SUMMARY | 2025-03-31 12:17 | XMS_ITS | Encounter Summary ---
Author Organization [employer] Address [address] [place] [address] 7 [place] [address] Care Team Providers Care Electrophysiology Nurse Practitioner Name Role Phone Savannah Segovia MD Primary Care Pro vider Reason for Visit * Reason Onset Date Comments temp crown fell off 12/23/2023 Encounter Details Date Type Department Care Team (Late st Contact Info) Description 12/23/2023 Telephone [facility] [address] [place] [address] Heydi Young DDS [address] [place] [address] temp crown fell off Social History Tobacco [...] All set! * Telephone Encounter - Salima Sandy - 12/23/2023 11:32 AM EDT The message [...] Description 05/25/2025 8:45 AM EST Office Visit [facility] [address] [place] [address] Valentine Laila [address] [place] [address] documented as of this encounter Visit Diagnoses Not on filedocumented in this encounter Care Teams Electrophysiology Nurse Practitioner Relationship Specialty Start Date End Date Savannah Segovia MD [address] [place] [address] PCP - General Internal Medicine 02/16/23 documented as of this encounter
--- OUTSIDE RECORDS SUMMARY | 2025-03-31 12:17 | XMS_ITS | Encounter Summary ---
Author Organization [facility] Address [address] [place] [address] Care Team Providers Care Wool Hat Forming Machine Tender Name Role Phone Kelly Kirby Primary Care Provider U navailable Reason for Visit * Reason Comments Office Visit: Converted Data Conversion Encounter Details Date Type Department Care Team (Late st Contact Info) Description 08/11/2017 Dental Interim Note [facility] [address] [facility], [address] [place] [phone] Default, [facility] Provider [place] Social History Tobacco Use Types Packs/Day Years [...] on filedocumented in this encounter Care Teams Wool Hat Forming Machine Tender Relationship Specialty Start Date End Date Kelly Kirby FNP-C PCP - General 08/10/20 documented as of this encounter
--- OUTSIDE RECORDS SUMMARY | 2025-03-31 12:17 | XMS_ITS | Clinical Summary ---
Author Organization [facility] Address [address] [facility] [address] [place] [phone] Phone Care Team Providers Care License Issuer Name Role Phone Unknown, Unknown Primary Care [...] ce After 26 Yrs) 2009 MAMMOGRAM 2023 INFLUENZA VACCINE (#1) 2025 03/11/2019 COVID-19 VACCINE (2024-2 6 season) 2025 09/05/2020 Adult Td,Tdap Booster 08/03/2027 08/03/2017 HEPATITIS A [...] topic Medical Devices Not on file Insurance [address] [address] [employer] PLANS DIRECT PLANS DIRECT DIRECT PLANS DIRECT [facility] DIRECT [facility] DIRECT Care Teams License Issuer Relationship Specialty Start Date End Date Unknown, Unknown, PCP - General 09/05/22 Additional Source Comments The information contained in this document represents components of the legal health record. It is not the complete legal health record.[facility]
--- OUTSIDE RECORDS SUMMARY | 2025-03-31 12:17 | XMS_ITS | Encounter Summary ---
Author Organization [facility] Address [address] [place] [address] Care Team Providers Care Product Applications Scientist Name Role Phone JoshuadanyaKelly ty ELECTROMECHANICAL EQUIPMENT TESTER-C Primary Care Provider U thais Reason for Visit * Reason Comments Office Visit: Converted Data Conversion Encounter Details Date Type Department Care Team (Late st Contact Info) Description 08/14/2020 Dental Interim Note [facility] 10 [facility], [address] [place] [phone] Default, [facility] Provider [place] Social History Tobacco Use Types Packs/Day Years [...] filedocumented in this encounter Care Teams Product Applications Scientist Relationship Specialty Start Date End Date Kelly Kirby, ELECTROMECHANICAL EQUIPMENT TESTER-C PCP - General 08/10/20 documented as of this encounter
--- OUTSIDE RECORDS SUMMARY | 2025-03-31 12:17 | XMS_ITS | Encounter Summary ---
Author Organization [employer] Address [address] [place] [address] [address] [place] [address] Care Team Providers Care Paste Up Artist Name Role Phone Oscar Dhaliwal Primary Care Provider Unavail able Savannah Segovia MD Primary Care Pro vider Reason for Visit * Reason Comments Med Refill Encounter Details Date Type Department Care Team (Late st Contact Info) Description 01/13/2023 Refill [facility] [address] [place] [phone] Aramis Arreguin MD [address] [place] [phone] Vaginal itching Social History Tobacco Use Types [...] Description 05/25/2025 8:45 AM EST Office Visit [facility] [address] [place] [address] Laila Grijalva [address] [place] [address] documented as of this encounter Visit Diagnoses Diagnosis Vaginal itching Pruritus of genital organs documented in this encounter Care Teams Paste Up Artist Relationship Specialty Start Date End Date Oscar Dhaliwal AGNP PCP - General Family Medicine 12/11/22 02/15/23 Savannah Segovia MD [address] [place] [phone] PCP - General Internal Medicine 02/16/23 documented as of this encounter
--- OUTSIDE RECORDS SUMMARY | 2025-03-31 12:17 | XMS_ITS | Clinical Summary ---
Author Organization [facility] Address [address] [place] [address] Care Team Providers Care Parent Partner Name Role Phone Savannah Segovia Primary Care Provider [phone] Allergies No known active allergies Medications levothyroxine [...] 08/16/2020 Hearing loss of left ear 08/16/2020 Family History Medical History Relation Name Comments [...] 19+ 3-dose series) 12/13/2018 11/15/2018 Mammogram 2023 Alcohol/Substance Use Screening 06/08/2024 Depression Screening and Follow-Up 06/08/2024 Social Drivers of Health Annual Screening 06/08/2024 COVID-19 Vaccine ( season) 2025 03/24/2024, 07/14/2021, 09/28/2020, Additional history exists Influenza Vaccine (#1) 2025 , 02/13/2021, 03/11/2019, [...] complete this topic Procedures * Due to [place] state [...] DETECTED NOT DETECTED 08/12/2024 5:07 AM EST [employer] [facility] Neisseria Gonorrhoeae RNA, TMA NOT DETECTED NOT DETECTED 08/12/2024 5:07 AM EST [employer] [facility] Comment: The analytical performance characteristics of this assay, when used to test SurePath(TM) specimens have been determined by [facility]. The modifications have not been cleared or approved by the FDA. This assay has been validated pursuant to the CLIA regulations and is used for clinical purposes. For additional information, please refer to https://education.[employer]/faq/KFT173 (This link is being provided for information/ educational purposes only.) Urine Voided urine specimen / Unknown Non-Blood Collection / Unknown 08/11/2024 9:49 AM EST 08/11/2024 10:48 AM EST Narrative ZEESHAN NICHOLAS - 08/12/2024 5:07 AM EST [facility] Received Date:[id number] Mackenzie Golden NP LAB URINE ORDERABLES Fin al Result ZEESHAN NICHOLAS [address] [facility] [address], [place] [address], [place] [phone] [employer] [facility] [address] [facility] 3rd Floor, [place] [phone], from Last 3 Months or Most Recently Relevant to Health Maintenance Insurance [place] HSNO/FREE CARE [facility] PPO/EPO Advance Directives Healthcare Agents on File Name Relationship Healthcare Agent Relationshi p Communication Alvaro Olivera Spouse Health Care Agent Care Teams Parent Partner Relationship Specialty Start Date End Date Savannah Segovia [address] [place] [phone] PCP - General 08/11/24
== END 2025-03-31 11:12 | disposition home or self-care (01) ==
LOC: HO.HGS 10:40
PROVIDERS: PCP Student in an Organized Health Care Education/Training Program; Visit Provider Surgery
DX: D17.21 Benign lipomatous neoplasm of skin and subcutaneous tissue of right arm (principal)
CPT/HCPCS: 99204

== ENCOUNTER 2025-05-09 10:39 | Outpatient (REF) | payer BC, SELFPAY | END 2025-05-09 10:40 | disposition home or self-care (01) | LOC: HO.LNP 10:39 | PROVIDERS: PCP Student in an Organized Health Care Education/Training Program; Visit Provider Surgery | DX: D17.21 Benign lipomatous neoplasm of skin and subcutaneous tissue of right arm (principal) | CPT/HCPCS: 11403; 88304 ==

== ENCOUNTER 2025-05-09 10:39 | Outpatient (AMB) | payer BC, SELFPAY ==
--- NOTE | 2025-05-09 10:47 | MHC.OFFVIS ---
Vital Signs 05/09/25 10:55 Height 5 ft 11 in Weight 187 lb BMI 26.1 BP 132/68 Blood Pressure Location Rt brachial Position Sitting Pulse 72 Intake Visit Reasons: excise lipoma arm Intake Note: Patient is seen for office procedure: Excision of mass located in the upper right arm. Pt c/o: reports no changes. s/p: 05/11/25 @9:15am Electrotype Caster Required: No Accompanied by: mother Erondina Allergies pollen extracts Allergy (Mild, Verified 05/09/25 10:55) Unknown HPI Comments Details: Patient returns today for excision of lipoma of the right upper arm. She denies any significant changes since her last visit. [facility] Medical History Appendicitis History of cholesteatoma Surgical History Hx of mastoidectomy Social History Alcohol intake: never Patient Tobacco Use Status: Never used Tobacco Review of Systems Const All systems reviewed & are unremarkable except as noted in HPI and below Physical Exam Resp Effort & Inspection: normal respiratory effort, no audible wheezes, no cough and no respiratory distress Skin Other: Warm, dry, no rash Extrem General: Yes no clubbing, cyanosis or edema Shoulder/upper arm images:  1. 3 cm soft tissue mass right arm Office Procedures Excision Details: Preoperative diagnosis: Lipoma right upper arm Postoperative diagnosis: Same Procedure: Excision lipoma right upper arm, 3 cm Surgeon: Dm Tubbs MD Food Service Substitute: None Anesthesia: Lidocaine 1% with epinephrine Indications for procedure: 40-year-old female presenting with a soft tissue mass in the right upper arm which is causing discomfort. On examination the lesion measures 3 cm in diameter. Operative findings: 3 cm soft tissue mass within the subcutaneous tissue consistent with a lipoma. Specimen: Lipoma right upper arm Estimated blood loss: Less than 1 mL Complications: None Procedure details: Patient was brought to the procedure room and placed in a left lateral decubitus position. The site of surgery was confirmed in the right upper arm lateral surface. After assuring informed consent the skin was prepped with Betadine and draped in a sterile fashion. Local anesthesia was then infiltrated around the lesion. An incision was then made in a longitudinal fashion directly over the lipoma measuring 2.5 cm. This was carried out through subcutaneous tissue up to the lipoma. The lipoma was then sharply dissected from the surrounding subcutaneous tissue. The lesion was passed off the table and sent to pathology for further examination. Hemostasis was assured using light pressure. Dermis was then reapproximated using interrupted 4-0 Polysorb suture. Skin was closed using a running subcuticular 4-0 Polysorb suture. Steri-Strips, 2 x 2 gauze and Tegaderm were then applied. The patient tolerated the procedure well. She was discharged to home in stable condition. [id number]/arms/legs 2.1-3cm Procedure code (CPT) selection complete Assessment & Plan Assessment & Plan (1) Lipoma of arm: Code(s): D17.20 - Benign lipomatous neoplasm of skin and subcutaneous tissue of unspecified limb Category: Medical Qualifiers: Laterality: right Qualified Code(s): D17.21 - Benign lipomatous neoplasm of skin and subcutaneous tissue of right arm Plan Patient underwent excision of the lipoma right upper arm and tolerated the procedure well. She will return in 1 week for wound check. Orders: Orders Surgical Today D17.21 - Benign lipomatous neoplasm of skin and subcutaneous tissue of right arm Coding Level of Care Code Procedure Only Diagnoses Lipoma of right upper extremity D17.21 Laterality: right CPT Codes Trunk/Arms/Legs - CPT: 49298-nvozg/arms/legs 2.1-3cm ([id number])
[2025-05-09 10:55] VITALS: BP 132/68; PULSE 72; BMI 26.1
--- OUTSIDE RECORDS SUMMARY | 2025-05-09 12:27 | XMS_ITS | Data Portability ---
Author Organization [place] [facility], Allergy Address [address] [place] [address] Care Team Providers Care Astronomy Department Chair Name Role Phone LIBIA CLAROS Primary Care [...] Vial Test Notes:pt was taking allergy meds [email or web address] Not available 11/02/2024 16:22:10 11/16/2024 11/16/2024 Visit With: Rosa Bowman Use of Antihistamines: No If yes: Vial Test Change in medications: No If yes Increase in asthma symptoms If yes, inhaler use: Reaction to last injections: No If yes: Allergy Symptoms: Other: Missed: Dose Aware of Vial Test Aware: Notes: [email or web address] Not available 11/16/2024 13:00:57 11/21/2024 11/21/2024 Visit With: Marga Harrison RN Use of Antihistamines: Yes If yes: Daily Vial Test Change in medications: No If yes Increase in asthma symptoms If yes, inhaler use: Reaction to last injections: No If yes: Allergy Symptoms: Other: Missed: Dose Aware of Vial Test Aware: Notes: [email or web address] Not available 11/21/2024 13:45:08 11/21/2024 11/21/2024 Right [...] Name and Address Organization Details Recorded Time Chronic inflamma tion of mastoid cavity 357835202 Completed 201901/08/2024 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, right ear; Note: Date Diagnose d: 06/10/2019 2:45 PM (H95.111 ) Not Available [facility] 03:07:21 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 Completed 201909/23/2024 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; Note: Date Diagnose d: 06/10/2019 2:42 PM (383.33) SARIAH NATION MD [address] [place] [address], [place], [address] , [facility] 5 16:11:03 Postmast oidectom y complica tion 07575200 Active 2021 Other disorder s followin g mastoide ctomy, right ear; Note: Date Diagnose d: 2 4:39 PM (H95.191 ) Not Available [facility] 4 03:07:21 Sensorin eural hearing loss in left ear 66671518031 109 Active 2021 Sensorin eural hearing loss, unilater al, left ear, with restrict ed hearing on the contrala teral side; Note: Date Diagnose d: 2 4:39 PM (H90.A22 ) Not Available [facility] 4 03:07:20 Mixed conducti ve and sensorin eural hearing loss of left ear 87931230337 107 Active 2021 Mixed conducti ve and sensorin eural hearing loss, unilater al, left ear with restrict ed hearing on the contrala teral side; Note: Date Diagnose d: 2 4:39 PM (H90.A32 ) Not Available [facility] 4 03:07:21 Otorrhea of right ear [id number] 33555 Completed 202101/08/2024 Otorrhea , right ear; Note: Date Diagnose d: 2 9:57 AM (H92.11) Otorrh ea, right ear; Note: Date Diagnose d: 06/10/2019 2:45 PM (H92.11) ; Start Date : 06/10/19 Not Available [facility] 4 03:07:20 Partial loss of ear ossicles 66411066 Active 2021 Partial loss of ear ossicles , right ear; Note: Date Diagnose d: 2 9:54 AM (H74.321 ) Not Available [facility] 4 03:07:21 Follow-u p visit Active 2021 Medical surveill ance followin g complete d treatmen t; Note: Date Diagnose d: 04/25/20 3:46 PM (Z09) Not Available [facility] 4 03:07:22 Tinnitus of right ear 54462252649 08 Active 2022 Tinnitus , right ear; Note: Date Diagnose d: 11/13/2022 3:13 PM (H93.11) Not Available [facility] 4 03:07:22 Allergic rhinitis caused by pollen 52077126 Active 2022 Allergic rhinitis due to pollen; Note: Date Diagnose d: 11/13/2022 3:13 PM (J30.1) Not Available [facility] 4 03:07:22 Acute pharyngi tis 715410669 Completed 202201/04/2024 Acute pharyngi tis, unspecif ied; Note: Date Diagnose d: 03/19/20 9:39 AM (J02.9) Note: Date Diagnose d: 03/19/20 9:39 AM (J02.9) SARIAH NATION MD [address] [place] [address], [place], [address] , [place] [facility] 4 16:30:12 Perennia l allergic rhinitis 422872823 Active 2023 MARGA HARRISON RN [address] [place] [address], [place], [address] , [place] [facility] 4 15:03:21 Mixed conducti ve and sensorin eural hearing loss of right ear 06875826879 105 Active 2023 SARIAH NATION MD [address] [place] [address], [place], [address] , [place] - [facility] 4 16:31:16 Otorrhea of right ear 56403025658 46002 Active 2023 Otorrhea , right ear; Note: Date Diagnose d: 2 9:57 AM (H92.11) Note: Date Diagnose d: 2 9:57 AM (H92.11) Otorrh ea, right ear; Note: Date Diagnose d: 06/10/2019 2:45 PM (H92.11) Note: Date Diagnose d: 06/10/2019 2:45 PM (H92.11) ; Start Date : 06/10/19 SARIAH NATION MD [address] [facility] [facility], [place], [address] , [place] [facility] [place] 4 11:27:08 Acute myringit is of right ear 65365342648 73402 Active 2023 SARIAH NATION MD [address],[place] [facility], [place], [address] , [place] [facility] [place] 4 14:42:10 Chronic cough 26668524 Active 2024 SARIAH NATION MD [address] [facility],[place] [address], [place], [address] , [place] [facility] [place] 5 11:02:20 Problem Notes None recorded. Procedures Surgical History Date Name Laterality Status Provider Name and Address Organization Details Recorded Time 11/22/19 25 Allergy Immunotherapy Injections completed MONSERRAT RATLIFF 100 [facility],[address], [address], [facility] - [facility] 11/21/2024 13:44:53 11/22/19 25 Debridement of Ear canal right completed SARIAH NATION MD 100 [facility],[address], [address], [facility] [place] 11/21/2024 10:55:36 11/17/19 25 Allergy Immunotherapy Injections completed MONSERRAT RATLIFF 100 [facility],[address], [address], [facility] [place] 11/16/2024 13:00:52 11/03/19 25 Allergy Immunotherapy Injections completed MONSERRAT RATLIFF [address] [facility] [address],[address] [place] [address], [address], [facility] [place] 11/02/2024 16:21:54 10/26/19 25 Allergy Immunotherapy Injections completed MARGA HARRISON RN [address], [place], [address], [place] [facility] [place] 10/25/2024 11:13:42 10/19/19 25 Allergy Immunotherapy Injections completed MONSERRAT RATLIFF [address], [place], [address], [place] [facility] [place] 10/18/2024 11:15:57 10/07/19 25 Allergy Immunotherapy Injections completed MARGA HARRISON RN [address], [place], [address], [place] [facility] [place] 10/06/2024 13:58:24 09/30/19 25 Allergy Immunotherapy Injections completed MARGA HARRISON RN [address],[place] [address], [address], [place] [facility] [place] 09/29/2024 11:43:33 09/24/19 25 Debridement of Ear canal right completed SARIAH NATION MD [address], [place], [address], [place] [facility] [place] 09/23/2024 16:12:06 09/24/19 25 Allergy Immunotherapy Injections completed ADRIEL SHEPARD Bennett [address] [place] [address], [address], [place] [facility] [place] 09/23/2024 15:51:09 09/10/19 25 Allergy Immunotherapy Injections completed ADRIEL SHEPARD Bennett [address] [place] [address], [address], [place] [facility] [place] 09/09/2024 15:10:33 08/26/19 25 Allergy Immunotherapy Injections completed MARGA HARRISON RN [address], [address], [place] [facility] [place] 08/25/2024 10:17:50 08/10/19 25 Allergy Immunotherapy Injections completed MARGA HARRISON RN [address], [place], [address], [place] [facility] [place] 08/09/2024 15:41:57 02/26/20 25 Allergy Immunotherapy Injections completed ROSA BOWMAN, A [address] [facility] [address], [address], [place] [facility] [place] 08/03/2024 15:52:37 07/29/19 25 Allergy Immunotherapy Injections completed ADRIEL DEVYN, RMA [address] [facility] [address], [address], [place] [facility] [place] 07/29/2024 15:33:14 07/15/19 25 Allergy Immunotherapy Injections completed ADRIEL IRMA, RMA [address] [facility] [address],[address], [address], [place] [facility] [place] 07/15/2024 15:35:02 07/08/19 25 Allergy Immunotherapy Injections completed MARGA HARRISON RN 100 [facility],[address], [address], [place] [facility] 07/08/2024 15:05:29 07/01/19 25 Allergy Immunotherapy Injections completed ADRIEL SHEPARD, A 100 [facility],[address], [address], [place] [facility] [place] 07/01/2024 13:09:42 06/02/20 24 Allergy Immunotherapy Injections completed MARGA HARRISON RN 100 [facility],[address], [address], [place] [facility] [place] 06/02/2024 14:12:21 06/02/20 24 Comp Audio with Tymps - 48952 & 41548 completed ORIANA GIBSON 100 [facility],[address], [address], [place] [facility] [place] 06/02/2024 15:14:03 06/02/20 24 Debridement of Mastoid Cavity right completed SARIAH NATION MD 100 [facility],[address], [address], [place] [facility] [place] 06/02/2024 14:47:20 05/20/20 24 Allergy Immunotherapy Injections completed ADRIEL DEVYN, RMA 100 [facility],[address], [address], [place] [facility] [place] 05/20/2024 11:10:34 05/13/20 24 Allergy Immunotherapy Injections completed ADRIEL SHEPARD RMBennett [address],[place] [address], [address], [place] [facility] [place] 05/13/2024 15:19:24 04/22/20 24 Allergy Immunotherapy Injections completed MARGA HARRISON RN [address] [place] [address], [address], [place] [facility] [place] 04/22/2024 15:06:00 03/31/20 24 Allergy Immunotherapy Injections completed MONSERRAT RATLIFF [address] [place] [address], [address], [place] [facility] [place] 03/31/2024 15:25:04 03/10/20 24 Allergy Immunotherapy Injections completed ADRIEL SHEPARD A [address] [place] [address], [address], [place] [facility] [place] 03/10/2024 14:25:36 03/03/20 24 Allergy Immunotherapy Injections completed ADRIEL SHEPARD Bennett [address] [place] [address], [address], [place] [facility] [place] 03/03/2024 14:21:21 02/26/20 24 Allergy Immunotherapy Injections completed MARGA HARRISON RN [address] [place] [address], [address], [place] [facility] [place] 02/26/2024 10:12:39 02/18/20 24 Allergy Immunotherapy Injections completed MARGA HARRISON RN [address] [place] [address], [address], [place] [facility] [place] 02/18/2024 16:04:15 02/11/20 24 Allergy Immunotherapy Injections completed MONSERRAT RATLIFF [address] [place] [address], [address], [place] [facility] [place] 02/11/2024 13:55:12 02/04/20 24 Allergy Immunotherapy Injections completed MONSERRAT RATLIFF [address],[place], [address], [facility] 02/04/2024 13:18:37 01/21/20 24 Allergy Immunotherapy Injections completed ROSA BOWMAN, [facility] 100 [facility],[address], [address], [facility] 01/21/2024 13:29:56 01/05/20 24 Debridement of Mastoid Cavity right completed SARIAH NATION MD 100 [facility],[address], [address], [facility] 01/05/2024 11:26:57 01/05/20 24 Allergy Immunotherapy Injections completed MARGA HARRISON RN 100 [facility],[address], [address], [facility] - [facility] 01/05/2024 12:01:09 12/17/19 24 Allergy Immunotherapy Injections completed ADRIEL SHEPARD, [facility] 100 [facility],[address], [address], [facility] - [facility] 12/17/2023 11:19:30 11/30/19 24 Allergy Immunotherapy Injections completed MARGA HARRISON RN 100 [facility],[address], [address], [facility] 11/30/2023 15:43:46 Appendectomy completed Mony Dailey [place] - [facility] 01/05/2024 10:43:00 Breast reduction completed Mony Dailey [place] - [facility] 01/05/2024 10:43:07 Imaging Results None recorded. [...] mg tablet 07/15 completed Medicati on ID: [id number] D uration Value: 10 Brand Name: ibuprofe [...] eye drops 01/04 completed Medicati on ID: [id number] D uration Value: 14 Brand Name: Ciloxan Send Method: E-Prescr ibed Sub s Allowed: subs OK Speci al Instruct ion: 4 drops into right ear BID X 14 days [facility] Ciloxan Medicati on ID: [id number] D uration Value: 14 Brand Name: Ciloxan Send Method: E-Prescr ibed Sub s Allowed: subs OK Speci al Instruct ion: 4 drops into right ear BID X 14 days [facility] me: Ciloxan Not Available Not Available [...] mg tablet 12/17 completed Medicati on ID: [id number] D uration Value: 10 Brand Name: amoxicil [...] for pain 01/04 completed Medicati on ID: [id number] D uration Value: 5 Prescri bed By Name: Erin Baeza nd Name: oxycodon e Send Method: E-Prescr ibed Sub s Allowed: subs OK Medic ationGen ericName : oxycodon e Medica tion ID: [id number] D uration Value: 5 Prescri bed By [...] Diagnosis SNOMED-CT Code Diagnosis ICD10 Code Diagnosis IMO Codes Diagnosis Note [id number] MARGA HARRISON RN Allergy 100 [facility] 100 [facility] PAM, [place] [address] 11/30/2023 14:53:22 11/30/2023 16:16:05 Perennial allergic rhinitis [id number] J30.89 [id number] ADRIEL IRMA, A Allergy [address] [place] [address], [place] [address] 12/17/2023 10:56:38 12/17/2023 13:47:54 Perennial allergic rhinitis 600509888 J30.89 [id number] SARIAH NATION MD [facility] [address] [place] [address] 01/05/2024 10:28:27 01/05/2024 12:02:58 Follow-up visit [id number] Z09 Partial lo ss of ear ossicles 53256669 H74.321 Mixed cond uctive and sensorineural hearing loss of right ear 2160280941 9105 H90.A31 Otorrhea of right ear 10 89535865 180450 H92.11 Postmastoi dectomy complication 64495855 H95.191 Allergic r hinitis caused by pollen 31936436 J30.[id number] [facility] Allergy [address] [place] [address], [place] [address] 01/05/2024 10:28:27 01/05/2024 12:02:58 Perennial allergic rhinitis 773630907 J30.[id number] [facility] Allergy [address] [place] [address], [place] [address] 01/21/2024 13:03:22 01/21/2024 15:14:22 Perennial allergic rhinitis 932629144 J30.89 [id number] ROSA BOWMAN [facility] Allergy [address] [place] [address], [place] [address] 02/04/2024 12:50:27 02/04/2024 13:52:32 Perennial allergic rhinitis 681114149 J30.89 [id number] ROSA BOWMAN [facility] Allergy [address] [place] [address], [place] [address] 02/11/2024 13:48:11 02/11/2024 14:04:04 Perennial allergic rhinitis 053173202 J30.89 [id number] MARGA HARRISON RN Allergy [address] [place] [address] 02/18/2024 15:56:39 02/18/2024 16:04:43 Perennial allergic rhinitis 003081699 J30.89 [id number] MARGA HARRISON RN Allergy [address] [place] [address] [address] [place] [address] 02/26/2024 10:03:49 02/26/2024 10:13:06 Perennial allergic rhinitis [id number] J30.89 [id number] ROSA BOWMAN, [facility] Allergy [address] [place] [address] [address] [place] [address] 03/03/2024 13:52:41 03/03/2024 14:21:57 Perennial allergic rhinitis [id number] J30.89 [id number] [facility], [facility] Allergy [address] [place] [address] [address] [place] [address] 03/10/2024 14:18:28 03/10/2024 14:54:23 Perennial allergic rhinitis 900580414 J30.89 [id number] MARGA HARRISON RN Allergy [address] [place] [address] [address] [place] [address] 03/31/2024 15:21:42 03/31/2024 15:25:34 Perennial allergic rhinitis [id number] J30.89 [id number] MARGA HARRISON RN Allergy [address] [place] [address] [address] [place] [address] 04/22/2024 14:47:50 04/22/2024 15:06:28 Perennial allergic rhinitis 262210511 J30.89 [id number] [facility], [facility] Allergy [address] [place], [place] [address] [address] [place] [address] 05/13/2024 14:51:58 05/13/2024 15:19:45 Perennial allergic rhinitis 866723017 J30.89 [id number] MARGA HARRISON RN Allergy [address] [place] [address] [address] [place] [address] 05/20/2024 10:18:31 05/20/2024 11:11:17 Perennial allergic rhinitis 984430319 J30.89 [id number] SARIAH NATION MD [facility] [address] [address] 06/02/2024 13:59:12 06/02/2024 15:42:34 Mixed conductive and sensorineural hearing loss of right ear 0524140523 9105 H90.A31 Audiologic al evaluation results: Right [...] stable here. Otorrhea of right ear 10 02696063 689850 H92.11 Postmastoi dectomy complication 00283573 H95.191 Allergic r hinitis caused by pollen 10128501 J30.1 Acute myri ngitis of right ear [id number] 873032 H73.001 [id number] MARGA HARRISON RN Allergy [address] [place] [address] 06/02/2024 14:00:52 06/02/2024 14:13:01 Perennial allergic rhinitis 904056713 J30.89 [id number] [facility] Allergy [address] [place] [address] 07/01/2024 12:57:35 07/01/2024 13:10:13 Perennial allergic rhinitis [id number] J30.89 [id number] MARGA HARRISON RN Allergy [address] [place] [address] 07/08/2024 14:50:41 07/08/2024 15:06:02 Perennial allergic rhinitis 047765924 J30.89 [id number] [facility]EL [facility] Allergy [address] [place] [address] 07/15/2024 14:38:43 07/15/2024 15:35:58 Perennial allergic rhinitis 134272600 J30.89 [id number] [facility] [address] [place] [address] 07/29/2024 15:05:32 07/29/2024 15:33:58 Perennial allergic rhinitis 812603354 J30.89 [id number] ROSA BOWMAN, [facility] Allergy [address] [place] [address] 100 [place] [address] 08/03/2024 15:45:05 08/03/2024 15:53:02 Perennial allergic rhinitis 793943838 J30.[id number] [facility], [facility] Allergy [address] [place] [address] 100 [place] [address] 08/09/2024 15:24:05 08/09/2024 15:42:35 Perennial allergic rhinitis 135604627 J30.89 [id number] MARGA HARRISON RN Allergy [address] [place] [address], [place] [address] 08/25/2024 09:52:07 08/25/2024 10:18:06 Perennial allergic rhinitis 105569002 J30.[id number] [facility] All[facility] [address] [place] [address] 100 [place] [address] 09/09/2024 14:28:49 09/09/2024 15:10:52 Perennial allergic rhinitis 071625934 J30.89 [id number] SARIAH NATION MD [facility] [place] [address] [place] [address] 09/23/2024 14:41:50 09/23/2024 16:11:49 Otorrhea of right ear 7774181403 488447 H92.11 Acute myri ngitis of right ear 8666115422 835555 H73.[id number] [facility] Allergy [address] [place], [place] [address] 100 [place] [address] 09/23/2024 14:33:43 09/23/2024 15:51:44 Perennial allergic rhinitis 498026212 J30.89 [id number] MARGA HARRISON RN Allergy [address] [place] [address] 100 [place] [address] 09/29/2024 11:36:30 09/29/2024 11:44:00 Perennial allergic rhinitis 638075577 J30.89 [id number] MARGA HARRISON RN Allergy [address] [place] [address],[place] [address] [place] [address] 10/06/2024 13:49:29 10/06/2024 13:58:49 Perennial allergic rhinitis [id number] J30.89 [id number] ROSA BOWMAN [facility] Allergy 100 [facility],[place] [address] [place] [address] 10/18/2024 10:40:33 10/18/2024 11:17:21 Perennial allergic rhinitis [id number] J30.89 [id number] MARGA HARRISON RN Allergy [address] [place] [address], ite [address] [place] [address] 10/25/2024 10:34:47 10/25/2024 11:14:13 Perennial allergic rhinitis 192979838 J30.89 [id number] ROSA BOWMAN [facility] Allergy [address] [place] [address], ite [address] [place] [address] 11/02/2024 16:10:52 11/02/2024 16:46:41 Perennial allergic rhinitis [id number] J30.89 [id number] ROSA BOWMAN [facility] Allergy 100 [facility], ite [address] [place] [address] 11/16/2024 11:04:26 11/16/2024 13:01:21 Perennial allergic rhinitis 898466760 J30.89 [id number] SARIAH NATION MD [facility] 100 [facility] [place] [address] 11/21/2024 09:40:22 11/21/2024 11:06:23 Perennial allergic rhinitis 952175638 J30.89 Postmastoi dectomy complication 93175043 H95.191 Chronic cough 95798606 R 05.3 75640 [id number] MARGA HARRISON RN Allergy [address] [place] [address],[place] [address] [place] [address] 11/21/2024 13:44:05 11/21/2024 13:54:47 Perennial allergic rhinitis 958368397 J30.89 Health Concerns Section Related Observation LastModified by Organization Detai ls LastModified Time None Recorded Concern Status LastModified by Organization Details LastModified Time None Recorded Advance Directives Directive None Recorded Payers Insurance Date Sequence Insurance Name Policy Number Policy Felix Covered Member ID Felix Member ID Guarantor Name 07/01/2024 1 [facility] [employer] - [place] [employer] (HMO) [id number] Edeusa Jarod [id number] Edeusa Jarod 11/21/2024 1 [facility] (HMO) [id number] Edeusa Jarod [id number] Edeusa Jarod Notes Date Note Type [...] or forms of immunotherapy. SARIAH NATION MD [address] [place] [address], [address], [place] [facility] 11/21/2024 11:06:44 OBGyn Episode No OBEpisode recorded.
--- OUTSIDE RECORDS SUMMARY | 2025-05-09 12:27 | XMS_ITS | Clinical Summary ---
Author Organization [facility] Address [address] [facility] [address] [place] [phone] Phone Care Team Providers Care Varnish Thinner Name Role Phone Unknown, Unknown Primary Care [...] topic Medical Devices Not on file Insurance [place] [address] [employer] PLANS DIRECT PLANS DIRECT DIRECT PLANS DIRECT [facility] DIRECT [facility] DIRECT Care Teams Varnish Thinner Relationship Specialty Start Date End Date Unknown, Unknown, PCP - General 09/05/22 Additional Source Comments The information contained in this document represents components of the legal health record. It is not the complete legal health record.[facility]
--- OUTSIDE RECORDS SUMMARY | 2025-05-09 12:27 | XMS_ITS | Clinical Summary ---
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 ADULT DENTAL [address] [place] [phone] Heydi Young DDS Tooth sensitivity to cold (Primary Dx); Localized gingival recession 03/23/[address] [address] Savannah Segovia MD No Show 03/22/[address] [address] Savannah Segovia MD CHART PREP 03/20/2025 8:30 AM EDT Office Visit [facility] ADULT DENTAL [address] [place] [phone] Heydi Young DDS Encounter for dental examination (Primary Dx); Full coverage crown needed for root canal-treated tooth 03/16/2025 Patient Outreach [facility] [address] [place] [phone] Savannah Segovia MD Pre-visit Planning (Pre-visit planning - unable to LVM, Mailbox full. ) 03/02/2025 8:00 AM EDT Office Visit [facility] ADULT DENTAL [address] [place] [address] Reed-Cagle, Heydi, DDS Full coverage crown needed for root canal-treated tooth (Primary Dx) 02/10/2025 Orders Only [facility] [address] [place] [address] Savannah Segovia MD Infertility, female (Primary Dx) 02/09/[address] [facility] [address] [place] [address] Kezia Concepcion MD from Last 3 Months Immunizations Immunization Administration [...] your housing situation today? I have leonid sandie 10/25/[address] you li [...] Description 05/25/2025 8:45 AM EST Office Visit [facility] ADULT DENTAL [address] [place] [address] Laila Grijalva [address] [place] [address] 07/11/2025 9:00 AM EST Office Visit [facility] MED[facility] [address] [place] [address] Savannah Segovia MD [address] [place] [address] Health Maintenance Due Date Last Done Comments Family Planning (PISQ) 1998 HPV Vaccines (1 - 3-dose series) 1998 Hepatitis B Vaccines (2 of 3 - 19+ 3-dose series) 12/13/2018 11/15/2018 Pap Smear 04/19/2024 04/19/2021 COVID-19 Vaccine (2024- season) 2025 03/24/2024, 07/14/2021, 09/28/2020, Additional history [...] older (1 - 1-dose 75+ series) 2058 HIV Screening Completed 05/11/2024, 02/07/2021 Hepatitis C [...] CROWN PREP Routine 03/02/2025 8:00 AM EDT PERIODIC ORAL EVALUATION - ESTABLISHED PATIENT Routine [...] Recently Relevant to Health Maintenance Results * BI Mammogram Screen w/ Driss w/ Implants Bran (05/20/2024 9:20 AM EST) Anatomical Region Laterality Modality Mammography 05/20/2024 9:20 AM EST Narrative 05/27/2024 5:33 PM EST [facility] [address] [place] [address] [place] [address] Mammography Report Signed Patient: Nate Olivera MR#: [id number] [birth year] : 1985 Acct:[id number] Age/Sex: 39 / F ADM Date: 05/20/24 Loc: HO.MAMMO Attending Dr: Savannah Jones MD Ordering Physician: Savannah Segovia MD Re sults: 2Benign Findings Date of Service: 05/20/24 Follow Up: 1 Year From Orig inal Mammogram Procedure(s): MM tomosynthesis screen imp BI Accession Number(s): [id number] cc: Savannah Segovia MD EXAMINATION: MM SCREENING [...] by: Margarita Guerrero DO 05/27/2024 05:30 PM [facility] Dictated By: Margarita Guerrero DO Signed By: <Electronically signed by Margarita Guerrero DO in OV> 05/27/24 1730 DD/ 0920 TD/TT: 05/20/24 0946 Furnace Installer: Procedure Note Donotuseinterpreter, Image - 05/27/2024 [facility] [address] [place] [address] [place] [address] Mammography Report Signed Patient: Nate Olivera GMR#: [id number] 20 : 1985Acct:[id number] Age/Sex: 39 / FADM Date: 05/20/24 Loc: HO.MAMMO Attending Dr: Savannah Jones MD Ordering Physician: Savannah Segovia sults: 2Benign Findings Date of Service: 05/20/24Follow Up: 1 Year From Orig inal Mammogram Procedure(s): MM tomosynthesis screen imp BI Accession Number(s): [id number] cc: Savannah Segovia MD EXAMINATION: MM SCREENING [...] 05/27/24 1730 DD/ 0920 TD/TT: 05/20/24 0946 Furnace Installer: Savannah Jones MD IMG BI PROCEDURES Final Result * Hepatitis C Antibody with Reflex to HCV, RNA, Quantitative, Real-Time PCR (05/11/2024 11:08 AM EST) Hepatitis C Antibody Nonreactive Nonreactive [facility] Comment:Antibodies to HCV no t detected; does not exclude early acuteHCV infection. Blood Venous blood specimen / Unknown 05/11/2024 11:08 AM EST 05/11/2024 12:56 PM EST Savannah Jones MD LAB BLOOD ORDERAB LES Final Result [facility] [address] [place] [phone] [phone] * HIV-1/2 Antigen and Antibodies, Fourth Generation, with Reflexes (05/11/2024 11:08 AM EST) HIV AB/AG Nonreactive Nonreactive [facility] Comment:HIV-1 p24 Ag and/or HIV-1/HIV-2 Ab not detected.A test result that is nonreactive does not exclude thepossibility of exposure to or infection with HIV-1 and/orHIV-2. Nonreactive results in this assay for individualswith prior exposure to HIV-1 and/or HIV-2 may be due toantigen and antibody levels that are below the limit ofdetection of this assay.The [employer] HIV Ag/Ab Combo assay result andsupplemental assay results should be interpreted inconjunction with the patient's clinical presentation,history and other laboratory results. If the results areinconsistent with clinical evidence, additional testing issuggested to confirm the result. Blood Venous blood specimen / Unknown 05/11/2024 11:08 AM EST 05/11/2024 12:56 PM EST us Savannah Jones MD LAB BLOOD ORDERAB LES Final Result Performing Organization Address City/[facility]/ZIP Co de Phone Number [facility] [address] [place] [address] [phone] * Lipid Panel, Standard (05/11/2024 11:08 AM EST) Triglycerides 53 <150 mg/dL [facility] Comment:Desirable Triglyceri de: less than 150 mg/dLBorderline High Triglyceride 150-199 mg/dLHigh Triglyceride: 200-499 mg/dLVery High Triglyceride: greater than or equal to 5OO mg/dL Cholesterol 148 <200 mg/dL [facility] Comment:Desirable Cholestero l: less than 200 mg/dLBorderline High Cholesterol: 200-239 mg/dLHigh Cholesterol: greater than 239 mg/dL LDL Cholesterol Calculated 89 <100 mg/dL [facility] Comment:Desirable LDL: less than 100 mg/dLNear Optimal/Above Optimal LDL: 110- 129 mg/dLBorderline High LDL: 130-159 mg/dLHigh LDL: 160-189 mg/dLVery High LDL: greater than or equal to 190 mg/dL HDL Cholesterol 49 >40 mg/dL [facility] Comment:Desirable HDL: great er than 40 mg/dL Note: This HDL assay may give artificially low results in patients with liver disease. Blood Venous blood specimen / Unknown 05/11/2024 11:08 AM EST 05/11/2024 12:56 PM EST Savannah Jones MD LAB BLOOD ORDERAB LES Final Result [facility] [address] [place] [phone] * THINPREP TIS PAP AND HPV mRNA E6/E7, CT/NG, TRICH (04/19/2021 12:00 AM EST) Chlamydia trachomatis RNA, TMA, Urogenital NOT DETECTED NOT DETECTED [facility] Clinical Information: None given [facility] COMMENT SEE COMMENT [facility] Comment: The analytical performance characteristics of this assay, when used to test SurePath(TM) specimens have been determined by [email or web address]. The modifications have not been cleared or approved by the FDA. This assay has been validated pursuant to the CLIA regulations and is used for clinical purposes. For additional information, please refer to https://education.studdex.[employer]/faq/NWO371 (This link is being provided for information/ [...] along with historic and current clinical information. Comment: SEE COMMENT [facility] Comment: This case could not be evaluated with computer assisted technology. The slide was manually screened according to routine procedures. Manager Application Development: SEE COMMENT [facility] Comment: ALS, CT(ASCP) CT screening location: [place] [address] HPV nRNA E6/E7 Not Detected Not Detected [facility] Comment: Methodology: Fashion Consultant Sales-Mediated Amplification This assay detects E6/E7 viral messenger RNA (mRNA) from 14 high-risk HPV types (16,18,31,33,35,39,45,51,52,56,58,59,66,68). The analytical performance characteristics of this assay have been determined by [email or web address]. The modifications have not been cleared or approved by the FDA. This assay has been validated pursuant to the CLIA regulations and is used for clinical purposes. For additional information, please refer to http://TimeGenius.[employer]/faq/RII782v2 (This link if provided for information/ educational purposes only.) Interpretation/Re sult: Negative for intraepithelial lesion or malignancy. [facility] LMP: NONE GIVEN [facility] Neisseria gonorrhoeae RNA, TMA, Urogenital NOT DETECTED NOT DETECTED [facility] Prev. BX: NONE GIVEN [facility] Prev. PAP: NONE GIVEN [facility] Review Manager Application Development: SEE COMMENT [facility] Comment: NSS, CT(ASCP) CT screening location: [place] [address] SOURCE: None given [facility] Statement Of Adequacy: SEE COMMENT [facility] Comment: Satisfactory for evaluation. Endocervical/transformation zone component present. Age and/or menstrual status not provided Trichomonas vaginalis, QL, TMA, PAP Vial NOT DETECTED NOT DETECTED [facility] Comment: The analytical performance characteristics of this assay have been determined by [email or web address]. The modifications have not been cleared or approved by the FDA. This assay has been validated pursuant to the CLIA regulations and is used for clinical purposes. For additional information, please refer to http://TimeGenius.[employer]/ faq/Trichomonastma (This link is being provided for information/ educational purposes only.) 04/19/2021 Jasmyn Bang NP LAB PATHOLOGY ORDERABLES Final Result [facility] [address] [place] [address], from Last 3 Months or Most Recently Relevant to Health Maintenance Insurance [facility] HMO DENTAL-[facility] MEDICAID LIMITED ADULT DENTAL - [facility] FULL (MEDICAID) DENTAL - [place] [facility] LINDA Maj[place] [id number] Care Teams Installment Agent Relationship Specialty Start Date End Date Savannah Segovia MD [address] [place] [phone] PCP - General Internal Medicine 02/16/23
--- OUTSIDE RECORDS SUMMARY | 2025-05-09 12:27 | XMS_ITS | Clinical Summary ---
Author Organization [facility] Address [address] [place] [address] Care Team Providers Care Coupon Manifest Clerk Name Role Phone Savannah Segovia Primary Care Provider [phone] Allergies No known active allergies Medications levothyroxine [...] 2025 , 02/13/2021, 03/11/2019, Additional history exists COVID-19 Vaccine ( season) 2025 03/24/2024, 07/14/2021, 09/28/2020, Additional history exists Chlamydia Screening 08/11/2025 08/11/2024 DTaP,Tdap,and Td Vaccines (2 - Td or Tdap) 08/03/2027 08/03/2017 HIV Screening Completed 05/11/2024, 1209/2023, 02/07/2021 Hepatitis C Screening Completed 05/11/2024 Pneumococcal Vaccine: Pediatric (0-5 Years) and At-Risk Patients (6-50 Years) Aged Out No longer eligible based on patient's age to complete this topic Procedures * Due to [place] state law, this organization might not be sharing negative HIV tests. Procedure Name Priority Date/Time Associated Diagnosis Comments CHLAMYDIA/NEISSERI A GONORRHEA RNA Routine 08/11/2024 9:49 AM EST Procreation management investigation and testing from Last 3 Months or Most Recently Relevant to Health Maintenance Results * Due to [place] state law, this organization might not be sharing negative HIV tests. * Chlamydia/Neisseria gonorrhoeae RNA (08/11/2024 9:49 AM EST) Chlamydia trachomatis RNA, TMA NOT DETECTED NOT DETECTED 08/12/2024 5:07 AM EST [facility] [facility] Neisseria Gonorrhoeae RNA, TMA NOT DETECTED NOT DETECTED 08/12/2024 5:07 AM EST [employer] [facility] Comment: The analytical performance characteristics of this assay, when used to test SurePath(TM) specimens have been determined by [employer]. The modifications have not been cleared or approved by the FDA. This assay has been validated pursuant to the CLIA regulations and is used for clinical purposes. For additional information, please refer to https://education.[employer]/faq/QBM302 (This link is being provided for information/ educational purposes only.) Urine Voided urine specimen / Unknown Non-Blood Collection / Unknown 08/11/2024 9:49 AM EST 08/11/2024 10:48 AM EST Narrative ZEESH[facility] NICHOLAS - 08/12/2024 5:07 AM EST [facility] Received Date:[id number] Mackenzie Golden NP LAB URINE ORDERABLES Fin al Result [facility]EESH[facility] NICHOLAS [address] [facility] 3rd Floor, [place] [address], [place] [phone] [employer] [facility] [address] [facility] 3rd Floor, [place] [address], from Last 3 Months or Most Recently Relevant to Health Maintenance [place] [address] [place] [address] HSNO/FREE CARE [facility] PPO/EPO Advance Directives Healthcare Agents on File Name Relationship Healthcare Agent Relationshi p Communication Alvaro Olivera Spouse Health Care Agent Care Teams Coupon Manifest Clerk Relationship Specialty Start Date End Date Savannah Segovia [address] [place] [phone] PCP - General 08/11/24
--- OUTSIDE RECORDS SUMMARY | 2025-05-09 12:27 | XMS_ITS | Encounter Summary ---
Author Organization [employer] Address [address] [place] [address] 7 [place] [address] Care Team Providers Care Couture Alterations Dressmaker Name Role Phone Oscar Dhaliwal Primary Care Provider Unavail able Savannah Segovia MD Primary Care Pro vider Reason for Visit * Reason Comments Med Refill Encounter Details Date Type Department Care Team (Late st Contact Info) Description 01/13/2023 Refill [facility] [address] [place] [address] Aramis Arreguin MD [address] [place] [phone] Vaginal itching Social History Tobacco Use Types [...] Description 05/25/2025 8:45 AM EST Office Visit [facility] ADULT DENTAL [address] [place] [address] Laila Grijalva [address] [place] [address] 07/11/2025 9:00 AM EST Office Visit [facility] MEDICINE [address] [place] [phone] Savannah Segovia MD [address] [place], [place] [phone] documented as of this encounter Visit Diagnoses Diagnosis Vaginal itching Pruritus of genital organs documented in this encounter Care Teams Couture Alterations Dressmaker Relationship Specialty Start Date End Date Oscar Dhaliwal AGNP PCP - General Family Medicine 12/11/22 02/15/23 Savannah Segovia MD [address] [place] [address] PCP - General Internal Medicine 02/16/23 documented as of this encounter
--- OUTSIDE RECORDS SUMMARY | 2025-05-09 12:27 | XMS_ITS | Encounter Summary ---
Author Organization [employer] Address [address] [place] [address] [address] [place] [address] Care Team Providers Care Laundry Worker Name Role Phone Savannah Segovia MD Primary Care Pro vider Reason for Visit * Reason Onset Date Comments temp crown fell off 12/23/2023 Encounter Details Date Type Department Care Team (Late st Contact Info) Description 12/23/2023 Telephone [facility] ADULT DENTAL [address] [place] [address] Heydi Young DDS [address] [place] [address] temp crown fell off Social History Tobacco [...] 8:45 AM EST Office Visit [facility] ADULT DENTAL [address] [place] [phone] Domingo Grijalvaaris [address] [place] [address] 07/11/2025 9:00 AM EST Office Visit [facility] MEDICINE [address] [place] [address] Savannah Segovia MD [address] [place] [phone] documented as of this encounter Visit Diagnoses Not on filedocumented in this encounter Care Teams Laundry Worker Relationship Specialty Start Date End Date Savannah Segovia MD [address] [place] [phone] PCP - General Internal Medicine 02/16/23 documented as of this encounter
--- OUTSIDE RECORDS SUMMARY | 2025-05-09 12:27 | XMS_ITS | Encounter Summary ---
Author Organization [employer] Address [address] [place] [address] Care Team Providers Care Digital Learning Platforms Manager Name Role Phone Maria Isabel Rivero Primary Care Provider Oscar Talvaera Primary Care Provider Savannah Childress MD Primary Care Pro vider Encounter Details Date Type Department Care Team (Latest Contact Info) Description 04/14/[address] [facility] Dental, Provider, DDS Social History [...] Description 05/25/2025 8:45 AM EST Office Visit [facility] ADULT DENTAL [address] [place] [phone] Domingo Grijalvaaris [address] [place] [address] 07/11/2025 9:00 AM EST Office Visit [facility] MEDIC[facility] [address] [place] [phone] Savannah Segovia MD [address] [place] [address] documented as of this encounter Visit Diagnoses Not on filedocumented in this encounter Care Teams Digital Learning Platforms Manager Relationship Specialty Start Date End Date Maria Isabel Rivero FNP PCP - General Family Medicine 01/31/22 11/07/22 Oscar Dhaliwal AGNP PCP - General Family Medicine 12/11/22 02/15/23 Savannah Segovia MD [address] [place] [phone] PCP - General Internal Medicine 02/16/23 documented as of this encounter
== END 2025-05-09 11:20 | disposition home or self-care (01) ==
LOC: HO.HGS 10:40
PROVIDERS: PCP Student in an Organized Health Care Education/Training Program; Visit Provider Surgery
DX: D17.21 Benign lipomatous neoplasm of skin and subcutaneous tissue of right arm (principal)
CPT/HCPCS: 11403

== ENCOUNTER 2025-05-16 09:13 | Outpatient (AMB) | payer BC, SELFPAY ==
--- NOTE | 2025-05-16 09:25 | A.OFFVIS_ITS ---
Vital Signs 3 05/16/25 09:26 Height 5 ft 11 in Weight 188 lb BMI 26.2 BP 115/63 Blood Pressure Location Lt brachial Position Sitting Pulse 82 Intake Visit Reasons: s/p excise lipoma arm Intake Note: Patient is seen for follow up visit, post excision of mass located in the upper right arm. Pt c/o: deneis any concerns Proposal Manager Writer Required: No Accompanied by: Self / Same As Patient Allergies pollen extracts Allergy (Mild, Verified 05/16/25 09:26) Unknown Medication List - Last Reviewed 05/16/25 by MONSERRAT Mcmanus cetirizine 10 mg PO DAILY PRN epinephrine (EpiPen) 0.3 mg IM Q10M PRN levothyroxine (Synthroid) 50 mcg PO DAILY HPI Comments Details: 40-year-old female patient returning 1 week following excision of a lipoma of the left upper extremity. She tolerated the procedure well and her wounds are healing nicely. She denies any pain redness or discharge. Pathology is pending at the time of this dictation. [facility] Medical History Appendicitis History of cholesteatoma Surgical History Hx of mastoidectomy Social History Alcohol intake: never Patient Tobacco Use Status: Never used Tobacco Physical Exam Const General: comfortable Nutritional Appearance: well nourished Orientation/consciousness: patient oriented x3 Resp Effort & Inspection: normal respiratory effort Neuro General: patient oriented x3 Extrem Other: Well-healed incision in the right upper arm without redness or discharge Shoulder/upper arm images: 2 1. Wounds clean and intact. Assessment & Plan Assessment & Plan (1) Lipoma of arm: Code(s): D17.20 - Benign lipomatous neoplasm of skin and subcutaneous tissue of unspecified limb Category: Medical Qualifiers: Laterality: right Qualified Code(s): D17.21 - Benign lipomatous neoplasm of skin and subcutaneous tissue of right arm Plan 40-year-old female patient status post excision of a lipoma of the left upper arm. She tolerated the procedure well the wounds are healing nicely. She should follow up as needed. Coding Level of Care Code Global (50813) Diagnoses Lipoma of right upper extremity D17.21 Laterality: right
[2025-05-16 09:26] VITALS: BP 115/63; PULSE 82; BMI 26.2
== END 2025-05-16 09:55 | disposition home or self-care (01) ==
LOC: HO.HGS 09:14
PROVIDERS: PCP Student in an Organized Health Care Education/Training Program; Visit Provider Surgery
DX: D17.21 Benign lipomatous neoplasm of skin and subcutaneous tissue of right arm (principal)
CPT/HCPCS: 99024